=== PATIENT | female | born 1945 | race Caucasian/White ===

== ENCOUNTER 2018-10-28 12:18 | Inpatient (IN) ==
[2018-10-28] MEDS ORDERED: Acetaminophen IV 1,000 MG/100 ML INFUS..BTL IVPB ONE (12:35)
[2018-10-28] MEDS ORDERED: Gabapentin 300 MG CAPSULE PO ONE (12:35)
[2018-10-28] MEDS ORDERED: traMADol 50 MG TABLET PO ONE (12:36)
[2018-10-28] MEDS ORDERED: Ringers Solution, Lactated 1,000 ML IVC SCH (12:45)
[2018-10-28] MEDS ORDERED: CeFAZolin Syr 2,000MG/20 ML 2,000 MG/20 ML SYRINGE IVPB ONE (12:48)
--- NOTE | 2018-10-28 13:32 | Anesthesia Evaluation PreOp ---
Date of Encounter: 10/28/18 Time of Encounter: 13:30 - Past History Planned Operation: Right Total Hip Replacement Robotic Assisted Cardiac History: HTN Pulmonary History: Denies Any Significant HX IT PROGRAM MANAGER History: Denies Any Significant HX Other Medical History: Thyroid : No Alcohol Use: none Drug use: none Medications and Allergies Aspirin [Lo-Dose Aspirin EC] 81 mg PO DAILY 10/28/18 [History] Calcium Carbonate [Calcium] 500 mg PO DAILY 10/28/18 [History] Cholecalciferol (Vitamin D3) [Vitamin D] 1,000 unit PO DAILY 10/28/18 [History] Escitalopram [Lexapro] 20 mg PO DAILY 10/28/18 [History] Levothyroxine Sodium [Levo-T] 100 mcg PO QAM 10/28/18 [History] Lisinopril-HCTZ 20-12.5 [Prinzide 20-12.5] 1 tab PO DAILY 10/28/18 [History] Multivitamin [One Daily] 1 tab PO DAILY 10/28/18 [History] [place]-3/Dha/Epa/Fish Oil [Fish Oil 1,000 mg Softgel] 1 cap PO DAILY 10/28/18 [ History] clonazePAM [Clonazepam] 0.5 mg PO HS 10/28/18 [History] Allergy/AdvReac Type Severity Reaction Status Date / Time Sulfa (Sulfonamide Allergy Unknown Unverified 10/15/18 13:57 Antibiotics) - Meds/Allergy Pre-op Review Medications Reviewed: Yes Allergies Reviewed: Yes Beta Blockers on Current Med List: No Anesthesia Results - Labs Laboratory Tests 10/15/18 10/15/18 10/15/18 14:27 14:27 14:27 Hgb Hct Plt Count 232 PT 11.7 INR 1.0 APTT 34.5 Sodium 137 Potassium 3.9 BUN 13 Creatinine 0.74 10/25/18 11:01 Hgb 14.3 Hct 43.5 Plt Count PT INR APTT Sodium Potassium BUN Creatinine - Imaging EKG: report reviewed (SR) Anesthesia Exam O2 Sat Height 1.6 m Height 1.6 m Weight 88.451 kg Weight 88.451 kg O2 Sat by Pulse Oximetry 95 Vital Signs Temp Pulse Resp BP Pulse Ox 99.0 F 87 18 158/80 95 10/28/18 12:38 10/28/18 12:38 10/28/18 12:38 10/28/18 12:38 10/28/18 12:38 Height: 5'3 Weight: 195 lbs NPO (# of Hours): MN Pain Scale: 0 - HEENT Pupil (Motor): Pupils equal, EOMI Mallampati: III Denture Type: Upper: Complete Oral Opening: Less than or equal to 3 - IT PROGRAM MANAGER LOC: Oriented IT PROGRAM MANAGER Motor: Normal RUE, Normal LUE, Normal RLE, Normal LLE, Normal Face IT PROGRAM MANAGER Sensory: Normal: RUE, LUE, RLE, LLE, Face - Cardiac Rhythm: Regular Murmur: None JVD: No Carotid Bruit: No - Pulmonary Breath Sounds: bilateral Clear Respiratory Effort: Symmetrical Anesthesia Assess/Plan ASA Score: 2 Level of consciousness: Cooperative, Oriented Anesthetic Plan: Spinal Autologous Blood: No Monitoring Plan: Standard Monitors Recovery Plan: PACU (Discussed SAB/MAC, possible GA, risks and benefits, agrees to proceed)
--- NOTE | 2018-10-28 13:45 | History & Physical Report ---
Date of Encounter: 10/28/18 Time of Encounter: 13:44 24 Hour HP Update - Instructions Instructions: If the History and Physical is less than 30 days old and was completed prior to A.M. admission and or procedure and has NOT been updated on calendar day of procedure please complete this update prior to performing procedure. - Update Patient reports changes in Medical Condition: No Changes in examination, assessment, or condition: No Changes in Medication: No Preop tests/diagnostics Reviewed: Yes Surgery Remains Indicated: Yes Consent for Planned Operative Procedure(s) Verified: Yes - Pre-Operative Checklist Preoperative Checklist Indicated: No Prophylactic Antibiotic Ordered: Yes Is VTE Prophylaxis Indicated?: Yes
[2018-10-28] MEDS ORDERED: *HR* FentaNYL (PF) 100 MCG/2 ML VIAL ONE (13:54)
[2018-10-28] MEDS ORDERED: *HR* Midazolam HCl 2 MG/2 ML VIAL ONE (13:54)
[2018-10-28] MEDS ORDERED: Ethanol\\Acetic Acid\\Na Ace\\Ben 1,000 ML IRRIG.SOLN IR ONE (13:56)
--- NOTE | 2018-10-28 14:27 | Anesthesia Procedures ---
Date of Encounter: 10/28/18 Time of Encounter: 14:25 Procedures: Anesthesia - Epidural/Spinal Patient ID/Chart reviewed: Yes Patient examined: Yes Consent Obtained: Yes Supplemental Oxygen: Nasal Cannula Supplemental Oxygen Rate (L/min): 3 Sedation: Versed (mg): 2 Sedation: Fentanyl (mcg): 50 Site Prep: Aseptic Technique, Sterile prep and drape, 0.5% Chlorhexidine/Alcohol Patient position: upright Local Anesthetic: Lidocaine 1% Amount of Local Anesthetic used: 5 Interspace Used: L3-L4 Loss of Resistance (JON): No Blood: No CSF: Yes Paresthesia: No Spinal Needle Gauge: 25 (3.5" pencan needle) Spinal Dose: 2.5mL of 0.5% isobaric bupivicaine Procedure: successful on 2nd attempt; patient tolerated procedure well; VSS Vitals + FHT's: see "holding vital signs" notes
[2018-10-28] MEDS ORDERED: Propofol 500 MG/50 ML INFUS..BTL ONE (14:45)
[2018-10-28] MEDS ORDERED: Tranexamic Acid 1,000 MG/10 ML VIAL ONE (14:45)
[2018-10-28] MEDS ORDERED: Ondansetron 4 MG/2 ML VIAL ONE (15:07)
[2018-10-28] MEDS ORDERED: Dexamethasone 4 MG/ML VIAL ONE (15:07)
[2018-10-28] MEDS ORDERED: *HR* PHENYLEPHRINE 1,000 MCG/10 ML SYRINGE IVP ONE (15:27)
--- NOTE | 2018-10-28 15:59 | Orthopedic Operative Note ---
Date of procedure: 10/28/18 Pre-op diagnosis: Right hip arthritis Post-op diagnosis: same Procedure: Procedure: Right Total Hip Replacment robotic-assisted Estimated blood loss: 300 cc Hardware: Metal and polyethylene replacement. [place] DM Cup: 52 cup Femoral size 4 anteverted Anato stem Head: +8 head with Marry Procedural Notes: Grade 4 arthritic changes femoral head acetabular socket, procedure performed with robotic assistance. Operative leg 6 millimeters longer than nonoperative as measured by preoperative CT scan Operative procedure: The patient was brought to the operating room and placed on the operating room table. After anesthesia was administered the patient was placed in the lateral decubitus position with the operative leg up. All pressure points were padded appropriately and the head was stabilized in the neutral position. The operative extremity was prepped and draped in the sterile surgical fashion patient received IV antibiotic prior to skin incision. 3 Steinmann pins were placed in the iliac crest 3 cm proximal to the anterior superior iliac spine this was for the robotic-assisted sensor. This was done through a small 2 cm incision. A standard posterior approach is made to the operative hip, the incision was made through the skin and subcutaneous tissue hemostasis was obtained with Bovie cautery. Using careful sharp dissection the fascia was identified and incised exposing the external rotators. The greater trochanter was marked, and length was measured at this time utilizing robotic assistance. The external rotators were released off the greater trochanter and tagged with #2 FiberWire suture. The capsule was T'd open and the hip was brought into internal rotation. Patient noted to have grade 4 arthritic changes femoral head. The femoral neck cut was made at the appropriate level roughly 15 mm proximal to the lesser trochanter aced on preoperative templating. An anterior capsulotomy was performed for the anterior retractor. Soft tissues removed from the acetabulum. Patient noted to have grade 4 arthritic changes acetabulum. The acetabulum reference point was confirmed. The acetabulum was then mapped with robotic assistance. Based on the preoperative plan the acetabulum was reamed in one step with a 52 reamer. The 52 acetabulum was impacted with robotic assistance and 39 degrees of abduction and 13 degrees of anteversion. The hip was brought back in to internal rotation and prepared with the telephone coin box collector followed by the canal finder followed by the reaming process to a size 11 broaching process in 20 degrees anteversion. It was broached up to the a ppropriate size 4 Trial reduction revealed leg lengths close to normal. The femoral implant was impacted in place in 20 degrees of anteversion. Trial reduction found the hip to be stable with 8 head and Marry. The trials were removed and the real implants were impacted in place. The hip was reduced, patient had robotic confirmed leg length of 8 mm longer than the contralateral side. The hip had excellent stability with forward flexion to 90 degrees adduction of 30 degrees and internal rotation of 60 degrees. The hip had no shuck. The hip sat with an antibacterial solution. It was irrigated out with 2 L of pulse irrigation. The Steinmann pins were removed. The hip was closed by the PA. The deep tissue was irrigated and closed deep with #1 PDS suture superficially with 0 PDS suture and skin was closed with Dermabond and zip tie. The patient was placed in a sterile dressing and abduction pillow. The patient was transferred to the recovery room in stable condition. Anesthesia: spinal Surgeon: Suleiman Howe Was there an assistant director of public works present: No Estimated blood loss (cc): 300 Condition: stable Disposition: PACU
--- NOTE | 2018-10-28 17:11 | Anesthesia Evaluation Post Op ---
Date of Encounter: 10/28/18 Time of Encounter: 17:10 - Vital Signs Vital Signs: Vital Signs/O2 Sat, Most Current Temp Pulse Resp BP Pulse Ox 98.5 F 60 16 133/72 96 10/28/18 17:06 10/28/18 17:06 10/28/18 17:06 10/28/18 17:06 10/28/18 17:06 - Lungs Lungs: Clear Ascult./Percussion - Airway Airway: Non-obstructed - Cardiovascular Regular Rate - Mental Status Mental Status: Alert & Oriented, Answers Appropriately - Pain Pain Scale: 0 Pain Scale used: Numeric (1 - 10) - Nausea Vomiting Nausea Vomiting: Not Present - Hydration Hydration: Tolerates oral liquids - Discharge PostOp Status: Transfer Patient to floor
[2018-10-28 17:12] LABS: Hematocrit 40.8 % (35.3-44.9); Hemoglobin 13.6 g/dL (11.5-15.4)
[2018-10-28] MEDS ORDERED: Naloxone 0.4 MG/ML INJ IVP PRN (18:13)
[2018-10-28] MEDS ORDERED: Ondansetron 4 MG/2 ML VIAL IVP PRN (18:13)
[2018-10-28] MEDS ORDERED: traMADol 50 MG TABLET PO PRN (18:13)
[2018-10-28] MEDS ORDERED: *HR* Promethazine 25 MG/ML VIAL IVP PRN (18:13)
[2018-10-28] MEDS ORDERED: MOM Conc 10 ML UD.LIQ PO PRN (18:13)
[2018-10-28] MEDS ORDERED: Sennosides 8.6 MG TABLET PO PRN (18:13)
[2018-10-28] MEDS ORDERED: *HR* OxyCODONE Immed Rel 5 MG TABLET PO PRN (18:13)
[2018-10-28] MEDS ORDERED: Temazepam 15 MG CAPSULE PO PRN (18:13)
[2018-10-28] MEDS: Ascorbic Acid 500 MG TABLET PO SCH (18:40)
[2018-10-28] MEDS: Ringers Solution, Lactated 1,000 ML IVC SCH ×2 (18:41→23:00)
[2018-10-28] MEDS ORDERED: *HR* Enoxaparin 30 MG/0.3 ML SYRINGE SQ SCH (20:00)
[2018-10-28] MEDS: Gabapentin 300 MG CAPSULE PO SCH (20:33)
[2018-10-28] MEDS: *HR* Enoxaparin 30 MG/0.3 ML SYRINGE SQ SCH (20:33)
[2018-10-28] MEDS: HYDROcodone BIT/Homatropine 5 MG TABLET PO PRN (20:34)
[2018-10-28] MEDS ORDERED: clonazePAM 0.5 MG TABLET PO SCH (21:00)
[2018-10-29] MEDS: HYDROcodone BIT/Homatropine 5 MG TABLET PO PRN ×2 (03:53→10:15)
[2018-10-29] MEDS: *HR* Enoxaparin 30 MG/0.3 ML SYRINGE SQ SCH (05:53)
--- NOTE | 2018-10-29 06:30 | Orthopedics Progress Note ---
Date of Encounter: 10/29/18 Time of Encounter: 06:29 Subjective Interval history: Patient was seen this morning doing well without complaints. Afebrile vital signs stable. Operative extremity: Neurovascularly intact Dressing clean dry and intact Calves nontender Assessment and plan: Continue with postoperative care Postop hematocrit 40 plan for discharge today or tomorrow based on progression with physical therapy Objective Vital signs: Vital Signs Temp Pulse Resp BP Pulse Ox 10/29/18 03:56 97.6 F 59 21 120/74 96 10/28/18 23:01 98.2 F 60 20 121/79 96 10/28/18 20:35 98.2 F 65 115/76 96 10/28/18 19:35 98.3 F 69 160/83 98 10/28/18 18:35 97.7 F 68 15 114/65 94 10/28/18 18:05 97.6 F 65 16 144/70 97 10/28/18 17:34 97.6 F 60 16 153/76 94 10/28/18 17:06 98.5 F 60 16 133/72 96 10/28/18 16:56 98.5 F 60 18 116/66 95 10/28/18 16:46 56 16 112/73 93 10/28/18 16:36 59 16 111/63 94 10/28/18 16:26 98.1 F 62 18 107/56 93 10/28/18 14:50 73 16 128/59 98 10/28/18 14:44 77 16 129/63 98 10/28/18 14:38 80 16 127/70 98 10/28/18 14:33 78 16 126/62 97 10/28/18 14:23 81 16 142/82 97 10/28/18 14:10 81 16 159/73 98 10/28/18 12:38 99.0 F 87 18 158/80 95 Intake and Output 10/28/18 10/28/18 10/29/18 15:59 23:59 07:59 Intake Total 20 / 1220 1200 / 1220 700 / 700 Output Total 300 / 300 Balance 20 / 920 900 / 920 700 / 700 Intake: IV Fluids 20 / 1020 1000 / 1020 Lactated Ringers 1,000 ML @ 75 1000 / 1000 mls/hr IVC .[id number] [facility] Rx#: [id number] Ancef Syringe 2,000 MG/20 ML 2, 20 / 20 000 mg In 20 ml @ 200 mls/hr IVPB PREOP ONE Rx#:[id number] Oral 200 / 200 700 / 700 Output: Estimated Blood Loss 300 / 300 Other: # Voids 1 1 Weight 88.451 kg 99.2 kg Patient Weight 10/29/18 23:59 Weight 99.2 kg - Labs CBC & BMP: 10/28/18 16:44 Consult Discharge Plan - Plan Referrals: Catie Singh MD [Primary Care Provider] -
[2018-10-29] MEDS: Ascorbic Acid 500 MG TABLET PO SCH ×2 (07:59→16:06)
[2018-10-29] MEDS: Gabapentin 300 MG CAPSULE PO SCH ×2 (08:01→15:52)
[2018-10-29 08:19] LABS: Basophils % 0.2 %; Hematocrit 39.5 % (35.3-44.9); Hemoglobin 12.9 g/dL (11.5-15.4); Immature Granulocytes % 0.5 % (0-4); Lymphocytes # 1.3 K/mcL (0.6-4.6); Lymphocytes % 9.8 %; Mean Corpuscular HGB Conc 32.7 g/dL (31.6-35.5); Mean Corpuscular Hemoglobin 32.3 pg (28.0-33.3); Monocytes # 0.6 K/mcL (0.0-1.3); Neutrophils # 10.7 K/mcL (1.6-8.9); Platelet Count 203 K/mcL (140-400); Red Blood Count 3.99 M/mcL (3.82-4.97); Red Cell Distribution Width 12.6 % (11.5-14.5); Segmented Neutrophils % 84.5 %; White Blood Count 12.7 K/mcL (4.3-11.1)
[2018-10-29 08:22] LABS: BUN/Creatinine Ratio 21 (6-26); Blood Urea Nitrogen 17 mg/dL (8-23); Calcium 8.7 mg/dL (8.6-10.3); Carbon Dioxide 26 mEq/L (23-29); Chloride 102 mEq/L (98-107); Glucose 136 mg/dL (70-105); Osmolality,Calculated 282 (280-300); Potassium 4.3 mEq/L (3.5-5.1); Sodium 134 mEq/L (136-145); eGFR For African Americans > 60 (> 60); eGFR For Non-African Americans > 60 (> 60)
[2018-10-29] MEDS ORDERED: Aspirin Enteric Coated 81 MG Tablet PO SCH (09:00)
[2018-10-29] MEDS ORDERED: Cholecalciferol (D-3) 1,000 UNIT (25MCG) TABLET PO SCH (09:00)
[2018-10-29] MEDS ORDERED: Multivit/Ca/Min/Fe/FA 1 TAB TABLET PO SCH (09:00)
[2018-10-29] MEDS ORDERED: NON-FORMULARY MEDICATION 1 EACH EACH (Omega-3/Dha/Epa/Fish Oil [Fish Oil 1,000 Mg Softgel] PO SCH (09:00)
[2018-10-29] MEDS ORDERED: Lisinopril-HCTZ 20-12.5mg TABLET PO SCH (09:00)
[2018-10-29] MEDS ORDERED: NON-FORMULARY MEDICATION 1 EACH EACH (Multivitamin [One Daily] 1 TAB) PO SCH (09:00)
--- NOTE | 2018-10-29 10:30 | Discharge Summary ---
Orders not resulted at time of discharge: Pending orders 10/28/18 15:50 Surgical Pathology [PTH] Routine Date of Encounter: 10/29/18 Time of Encounter: 09:55 - Discharge Diagnosis (1) Arthritis of right hip Priority: Primary Status: Chronic (2) Status post total hip replacement, right Priority: Primary Status: Acute (3) Thyroid disorder Priority: Secondary Status: Chronic (4) HTN (hypertension) Priority: Secondary Status: Chronic Qualifiers: Hypertension type: unspecified Qualified Code(s): I10 - Essential (primary) hypertension (5) History of vertigo Priority: Secondary Status: Chronic (6) Depression Priority: Secondary Status: Chronic Qualifiers: Depression Type: unspecified Qualified Code(s): F32.9 - Major depressive disorder, single episode, unspecified (7) Obesity Priority: Secondary Status: Chronic Qualifiers: Obesity type: unspecified obesity type Obesity classification: unspecified obesity classification Serious obesity comorbidity presence: unspecified whether serious comorbidity present Qualified Code(s): E66.9 - Obesity, unspecified (8) Lumbar radiculopathy Priority: Secondary Status: Chronic - Hospital Course Hospital course: Ms. Gan is a 73 year old female POD#1 s/p Right Total Hip Replacement robotic-assisted [arthritis] 10/28/18 Patient seen at bedside. A&Ox3 Dressing and incision c/d/i Patient expressing right calf tenderness to palpation - doppler ordered - found to be negative. No Left calf tenderness, erythema, or warmth. Neurovascularly intact b/l LE. Labwork, vitals, and medications reviewed. Pain control: Adequate Participating in therapy. All questions and concerns addressed. Educated on use of incentive spirometer, ambulation, and hydration. Patient educated on post-operative restrictions and care. Addressed: see above. The patient's postoperative course was uneventful. Progressed from intravenous analgesic needs to oral analgesic needs only. Remained neurovascularly intact and mobilized satisfactorily. All radiographic studies were satisfactory. Patient course and disposition discussed with Dr. Howe. Patient is discharged to home with home health with plan for rehabilitation and outpatient orthopedic follow up has been arranged. - Time Spent with Patient Total time spent providing and/or coordinating discharge services: - Discharge Medications Prescriptions: New Docusate Sodium [Colace] 100 mg PO BID 5 Days #10 capsule OxyCODONE Immed Rel [Roxicodone 5 MG] 5 mg PO Q6HR PRN 5 Days #20 tablet PRN Reason: Severe Pain Aspirin Enteric Coated [Aspirin EC] 325 mg PO BID 10 Days #20 tablet. Acetaminophen [Non-Aspirin Extra Strength] 500 mg PO Q6H PRN 7 Days #28 tablet PRN Reason: Mild To Moderate Pain Continued Escitalopram [Lexapro] 20 mg PO DAILY [place]-3/Dha/Epa/Fish Oil [Fish Oil 1,000 mg Softgel] 1 cap PO DAILY Multivitamin [One Daily] 1 tab PO DAILY Lisinopril-HCTZ 20-12.5 [Prinzide 20-12.5] 1 tab PO DAILY Levothyroxine Sodium [Levo-T] 100 mcg PO QAM clonazePAM [Clonazepam] 0.5 mg PO HS Cholecalciferol (Vitamin D3) [Vitamin D3] 1,000 unit PO DAILY Calcium Carbonate [Calcium] 500 mg PO DAILY Discontinued Aspirin [Lo-Dose Aspirin EC] 81 mg PO DAILY Home Medications: Calcium Carbonate [Calcium] 500 mg PO DAILY 10/28/18 [History] Cholecalciferol (Vitamin D3) [Vitamin D3] 1,000 unit PO DAILY 10/28/18 [History] Escitalopram [Lexapro] 20 mg PO DAILY 10/28/18 [History] Levothyroxine Sodium [Levo-T] 100 mcg PO QAM 10/28/18 [History] Lisinopril-HCTZ 20-12.5 [Prinzide 20-12.5] 1 tab PO DAILY 10/28/18 [History] Multivitamin [One Daily] 1 tab PO DAILY 10/28/18 [History] [place]-3/Dha/Epa/Fish Oil [Fish Oil 1,000 mg Softgel] 1 cap PO DAILY 10/28/18 [History] clonazePAM [Clonazepam] 0.5 mg PO HS 10/28/18 [History] Acetaminophen [Non-Aspirin Extra Strength] 500 mg PO Q6H PRN 7 Days #28 tablet 10/29/18 [Rx] Aspirin Enteric Coated [Aspirin EC] 325 mg PO BID 10 Days #20 tablet. 10/29/18 [Rx] Docusate Sodium [Colace] 100 mg PO BID 5 Days #10 capsule 10/29/18 [Rx] OxyCODONE Immed Rel [Roxicodone 5 MG] 5 mg PO Q6HR PRN 5 Days #20 tablet 10/29/18 [Rx] Allergies/Adverse Reactions: Allergy/AdvReac Type Severity Reaction Status Date / Time Sulfa (Sulfonamide Allergy Unknown Verified 10/28/18 18:31 Antibiotics) Date of admission: 10/28/18 16:27 Primary care physician: Catie Singh Consults: 10/28/18 17:43 Consult to Internal Control Manager [CONS] Routine Reason for SW Consult: DISCHARGE PLANNING 10/28/18 18:13 Consult to Nurse Navigator [CONS] Routine Comment: ortho navigator Consult to Nutrition [CONS] Routine Comment: Consulting Provider: NUTRITION Reason for Dietary Consult: Other Other:: Proper nutrition to facilitate wound healing Consult to Occupational Therapy [CONS] Routine Comment: Evaluate, develop and implement POC Reason for Consult: total hip replacement Does patient have active BEDREST order?: No Is patient medically & hemodynamically stable?: Yes Consult to Physical Therapy [CONS] Routine Comment: Evaluate, develop and implement POC Reason for Consult: total hip replacement Does patient have active BEDREST order?: No Is patient medically & hemodynamically stable?: Yes Consult to Internal Control Manager [CONS] Routine Reason for SW Consult: post op joint replacement RT Post Op Consult [CONS] Routine Discharging clinician: Suleiman Howe Anticipated date of discharge: 10/29/18 - VTE Documentation of Mechanical Device: Venous foot pump, device Labs on day of discharge: Labs from last 24 hours 10/29/18 10/29/18 10/28/18 07:22 07:22 16:44 WBC 12.7 H RBC 3.99 Hgb 12.9 13.6 Hct 39.5 40.8 MCV 99.0 MCH 32.3 MCHC 32.7 RDW 12.6 Plt Count 203 MPV 10.0 Immature Gran % 0.5 Seg Neutrophils % 84.5 Lymphocytes % 9.8 Monocytes % 5.0 Eosinophils % 0.0 Basophils % 0.2 Neutrophils # 10.7 H Lymphocytes # 1.3 Monocytes # 0.6 Eosinophils # 0.0 Basophils # 0.0 Sodium 134 L Potassium 4.3 Chloride 102 Carbon Dioxide 26 BUN 17 Creatinine 0.81 Est GFR ( Amer) > 60 Est GFR (Non-Af Amer) > 60 BUN/Creatinine Ratio 21 Glucose 136 H Calculated Osmolality 282 Calcium 8.7 - Impressions ITS Impressions Hip X-Ray 10/28/18 01:00 IMPRESSION: No complications are seen status post right total hip arthroplasty. D/ / Guanakito Romero MD / Guanakito Romero MD Interpreting Provider: Guanakito Romero MD - Patient Status Disposition: Home Health Service Condition: Good Functional capacity at discharge: uses cane/walker Overall status at discharge: patient is progressing back to baseline - Discharge Instructions Follow Up With: Catie Singh MD [Primary Care Provider] - - Diet and Activity Activity: as per physical therapy Diet: advance to your usual diet
--- NOTE | 2018-10-29 12:40 | Physician Discharge Referral ---
Home Health/Hosp Referral Info Transfer to: Home Health Attending Provider: Dr. Suleiman Howe - Diagnosis (1) Arthritis of right hip Priority: Primary Status: Chronic (2) Status post total hip replacement, right Priority: Primary Status: Acute (3) Thyroid disorder Priority: Secondary Status: Chronic (4) HTN (hypertension) Priority: Secondary Status: Chronic (5) History of vertigo Priority: Secondary Status: Chronic (6) Depression Priority: Secondary Status: Chronic (7) Obesity Priority: Secondary Status: Chronic (8) Lumbar radiculopathy Priority: Secondary Status: Chronic - Respiratory Orders Smoking Cessation: Smoking cessation has been advised. For more information, call the [place] Tobacco Quit Line at 5-423-TZVB-NOW. - Dressing/Wound Care Site: right hip - Diet/Nutrition Diet/Nutrition Orders: Regular - Activity Activity Orders: Up ad machelle, Ambulate, Chair, Walker - Services Needed Following services are medically necessary services: Nursing, Home Health Aide, Physical Therapy, Occupational Therapy, Med Social Work Home Care Orders: Total Hip replacement Precautions Apply cold therapy 3-6x/day for 20 minutes at a time. Encourage ambulation throughout the day and incentive spirometer 10x/hour. Elevate affected extremity as tolerated. Brace: Wear hip abduction pillow when laying/sleeping Opsite placed. Keep dressing intact until first follow up appointment. If greater than 50% saturated, notify office, remove dressing and place appropriate dressing back in place. Leave Zipline intact. Opsite dressing is water resistant, not water-proof. OK to shower, but do not get dressing wet. - Transfer Medications Prescriptions: Aspirin Enteric Coated [Aspirin EC] 325 mg PO BID 10 Days #20 tablet. Docusate Sodium [Colace] 100 mg PO BID 5 Days #10 capsule Acetaminophen [Non-Aspirin Extra Strength] 500 mg PO Q6H PRN 7 Days #28 tablet PRN Reason: Mild To Moderate Pain OxyCODONE Immed Rel [Roxicodone 5 MG] 5 mg PO Q6HR PRN 5 Days #20 tablet PRN Reason: Severe Pain Home Medications: Calcium Carbonate [Calcium] 500 mg PO DAILY 10/28/18 [History] Cholecalciferol (Vitamin D3) [Vitamin D3] 1,000 unit PO DAILY 10/28/18 [History] Escitalopram [Lexapro] 20 mg PO DAILY 10/28/18 [History] Levothyroxine Sodium [Levo-T] 100 mcg PO QAM 10/28/18 [History] Lisinopril-HCTZ 20-12.5 [Prinzide 20-12.5] 1 tab PO DAILY 10/28/18 [History] Multivitamin [One Daily] 1 tab PO DAILY 10/28/18 [History] [place]-3/Dha/Epa/Fish Oil [Fish Oil 1,000 mg Softgel] 1 cap PO DAILY 10/28/18 [History] clonazePAM [Clonazepam] 0.5 mg PO HS 10/28/18 [History] Acetaminophen [Non-Aspirin Extra Strength] 500 mg PO Q6H PRN 7 Days #28 tablet 10/29/18 [Rx] Aspirin Enteric Coated [Aspirin EC] 325 mg PO BID 10 Days #20 tablet. 10/29/18 [Rx] Docusate Sodium [Colace] 100 mg PO BID 5 Days #10 capsule 10/29/18 [Rx] OxyCODONE Immed Rel [Roxicodone 5 MG] 5 mg PO Q6HR PRN 5 Days #20 tablet 10/29/18 [Rx] Allergies/Adverse Reactions: Allergy/AdvReac Type Severity Reaction Status Date / Time Sulfa (Sulfonamide Allergy Unknown Verified 10/28/18 18:31 Antibiotics) Certification: Further, I certify that my clinical findings support that this patient is homebound (i.e. absences from home require considerable and taxing effort and are for medical reasons or moravian services or infrequently or short duration when for other reasons) because: Homebound Reason: Post-surgery restriction and or conditions limit ability to leave home Attestation: My signature below is to certify that this patient is under my care and that I, or nurse practitioner, or a physician engineer first assistant working with me, has a [id number] encounter with this patient.
[2018-10-29 14:59] VITALS: BP 114/68
== END 2018-10-29 16:18 | disposition home health service (06) | DRG 470 ==
LOC: SAMDAY 12:18 → 3NENU 16:27
PROVIDERS: ADMIT Orthopaedic Surgery; ATTEND Orthopaedic Surgery

== ENCOUNTER 2018-11-07 17:36 | Inpatient (IN) ==
[2018-11-07] MEDS ORDERED: Ondansetron 4 MG/2 ML VIAL ONE (17:45)
[2018-11-07] MEDS ORDERED: Ondansetron 4 MG/2 ML VIAL IVP ONE (17:47)
[2018-11-07] MEDS ORDERED: Isovue-370 500 ML BOTTLE IVP ONE (17:55)
--- NOTE | 2018-11-07 17:58 | Emergency Department Note ---
Disposition Clinical Impression: DVT (deep venous thrombosis) Qualifiers: DVT location: lower extremity Affected thrombotic vein of extremity: unspecified vein of extremity Chronicity: acute Laterality: right Qualified Code(s): I82.401 - Acute embolism and thrombosis of unspecified deep veins of right lower extremity Disposition: Still a Patient Condition: Good Referrals: Catie Singh MD [Primary Care Provider] - Forms: ED Satisfaction Letter Time of Disposition: 19:23 General Adult HPI - General Chief complaint: ED Nausea/Vomiting/Diarrhea Stated complaint: N/V Time Seen by Provider: 11/07/18 17:41 Source: patient, family Limitations: no limitations Nursing Notes Reviewed: Yes Vital Signs Reviewed: Yes - History of Present Illness HPI Narrative: Patient is 73 yo woman s/p right hip replacement surgery 10 days ago who ken ddenly became unable to bear weight on right leg 2/2 acute pain today 11/07/18 after returning from followup appointment with Dr. Howe. She endorses CP, nausea/vomiting, and denies SOB, fever, chills, AMS, or pain elsewhere. She had one episode of diaphoresis following development of pain. She denies hematemesis, dysuria, hematuria, melena. Right calf is unilaterally swollen. Patient states everything went fine at today's appointment. She has no history of blood clots and is not on anticoagulation. She does take a baby aspirin daily. PMH includes hypothyroidism, HTN, arthritis. Home meds include lisinopril, clonazepam, escitalopram. Social history significant for no smoking, alcohol or other substance use. Pain Scale: 4 - Related Data Home Medications Medication Instructions Recorded Confirmed Calcium Carbonate [Calcium] 500 mg PO DAILY 10/28/18 11/07/18 Cholecalciferol (Vitamin D3) 1,000 unit PO DAILY 10/28/18 11/07/18 [Vitamin D3] Levothyroxine Sodium [Levo-T] 100 mcg PO QAM 10/28/18 11/07/18 Lisinopril-HCTZ 20-12.5 [Prinzide 1 tab PO DAILY 10/28/18 11/07/18 20-12.5] Multivitamin [One Daily] 1 tab PO DAILY 10/28/18 11/07/18 [place]-3/Dha/Epa/Fish Oil [Fish Oil 1 cap PO DAILY 10/28/18 11/07/18 1,000 mg Softgel] clonazePAM [Clonazepam] 0.5 mg PO HS 10/28/18 11/07/18 Aspirin [Lo-Dose Aspirin EC] 81 mg PO DAILY 11/07/18 11/07/18 Escitalopram [Lexapro] 10 mg PO DAILY 11/07/18 11/07/18 Previous Rx's Medication Instructions Recorded OxyCODONE Immed Rel [Roxicodone 5 5 mg PO Q6HR PRN 5 Days #20 tablet 10/29/18 MG] Allergies Allergy/AdvReac Type Severity Reaction Status Date / Time Sulfa (Sulfonamide Allergy Unknown Verified 10/28/18 18:31 Antibiotics) All systems ED: reviewed and negative except as stated. Cardiovascular: Reports: chest pain Gastrointestinal: Reports: nausea, vomiting Genitourinary: Reports: frequency Musculoskeletal: Reports: other (Right hip, quadriceps, calf pain) Past Medical History - Past Medical History Attestation: Yes The following information was validated with the patient. Source: patient, old records reviewed, obtained from family Medical history: Reports: arthritis, hypertension, thyroid disease, other Surgical history: Reports: other Psychiatric history: Reports: no psych history - Social History Smoking Status: Never smoker Smokeless Tobacco Status: No Alcohol use: Reports: none Drug use: Reports: none Physical Exam PE Gen: Ill appearing, uncomfortable, AOx3 HEENT: No lymphadenopathy. Pupils equal and reactive. Cardio: Regular rate and rhythm, no murmur, no cyanosis, good perfusion to all extremities. Resp: Breath sounds equal bilaterally, no wheeze or cough GI: Abdomen soft, nontender, nondistended on palpation in all quadrants. Ecchymoses on abdomen s/p right hip replacement. : No suprapubic distention or tenderness MSK: +unilateral swelling and tenderness to palpation of RLE, no palpable cord, pain on dorsiflexion. No erythema. New dressing placed on surgical site earlier today at followup appointment w/ surgeon. I did not disturb the dressing on exam. Neuro: CNI-XII intact, sensation and strength intact, no AMS Psych: appropriate affect - General Limitations: no limitations Course Course Narrative: Ddx includes DVT, PE, MS. VS stable and WN apart from elevated BP 130s/108. Troponin negative. EKG pending. WBC mildly elevated at 14.4. Venous doppler RLE, CT-A ordered to evaluate for DVT and PE respectively. Updated patient and family regarding plan, pending shift change. Imaging pending at signout to Dr. Orellana. - Reevaluation(s) Reevaluation #1: VS stable. Patient resting comfortably following 100mcg fentanyl, reglan and benadryl IV. CT for PE pending. US +DVT. Signed out to Dr. Orellana. Time: 19:03 Vital Signs Temperature 98.7 F 11/07/18 17:49 Pulse Rate 77 11/07/18 17:49 Respiratory Rate 24 11/07/18 17:49 Blood Pressure 136/108 11/07/18 17:49 O2 Sat by Pulse Oximetry 100 11/07/18 17:49 Temperature 98.7 F 11/07/18 17:49 Pulse Rate 77 11/07/18 17:49 Respiratory Rate 24 11/07/18 17:49 Blood Pressure 136/108 11/07/18 17:49 O2 Sat by Pulse Oximetry 100 11/07/18 17:49 Oxygen Delivery Oxygen Delivery Room Air Medical Decision Making - MDM Narrative Medical decision making narrative: See course. - Medical Records Medical records reviewed: Yes I reviewed the patient's medical records. - Lab Data Lab results reviewed: Yes I reviewed the patient's lab results. Result diagrams: 11/07/18 17:53 11/07/18 17:53 Lab Results 11/07/18 11/07/18 Range/Units 17:53 17:53 WBC 14.4 H (4.3-11.1) K/mcL RBC 3.86 (3.82-4.97) M/mcL Hgb 12.4 (11.5-15.4) g/dL Hct 36.3 (35.3-44.9) % MCV 94.0 (83.0-100.0) fL MCH 32.1 (28.0-33.3) pg MCHC 34.2 (31.6-35.5) g/dL RDW 13.7 (11.5-14.5) % Plt Count 312 (140-400) K/mcL MPV 8.9 L (9.4-12.4) fL Immature Gran % 1.1 (0-4) % Seg Neutrophils % 89.6 % Lymphocytes % 5.6 % Monocytes % 3.5 % Eosinophils % 0.0 % Basophils % 0.2 % Neutrophils # 12.9 H (1.6-8.9) K/mcL Lymphocytes # 0.8 (0.6-4.6) K/mcL Monocytes # 0.5 (0.0-1.3) K/mcL Eosinophils # 0.0 (0.0-0.6) K/mcL Basophils # 0.0 (0.0-0.2) K/mcL Sodium 133 L (136-145) mEq/L Potassium 3.5 (3.5-5.1) mEq/L Chloride 98 (98-107) mEq/L Carbon Dioxide 23 (23-29) mEq/L BUN 10 (8-23) mg/dL Creatinine 0.71 (0.60-1.20) mg/dL Est GFR ( Amer) > 60 (> 60) Est GFR (Non-Af Amer) > 60 (> 60) BUN/Creatinine Ratio 14 (6-26) Glucose 145 H (70-105) mg/dL Calculated Osmolality 278 L (280-300) Calcium 9.7 (8.6-10.3) mg/dL Total Bilirubin 1.2 H (0.3-1.0) mg/dL AST 21 (13-39) Units/L ALT 13 (7-52) Units/L Alkaline Phosphatase 62 (34-104) Units/L Troponin I < 0.03 (< 0.04) ng/mL Serum Total Protein 7.7 (6.4-8.9) g/dL Albumin 4.3 (3.5-5.7) g/dL Globulin 3.4 (2.4-3.5) g/dL Albumin/Globulin Ratio 1.3 (1.1-2.2) - Radiology Data Radiology results reviewed: Yes I reviewed the patient's radiology results. Chest X-Ray 11/07/18 17:59 IMPRESSION: No acute abnormality detected. D/ / Guanakito Romero MD / Guanakito Romero MD Interpreting Provider: Guanakito Romero MD Attestation Statement - Attestation Attestation: I, Dat Castañeda, examined this patient and my medical decision-making was reviewed with the [employer]IPMENT OPERATOR/PA/Advanced Practice Nurse/Resident Physician. I agree with the documented findings, disposition and treatment plan as described except to the extent set forth below. 73-year-old female presents emergency Department with concerns of nausea, vomiting, right lower show any swelling. Patient states she had a recent right hip surgery with Dr. Howe, she noticed that today she is having swelling of the right lower extremity. She was taken out to Dr. Howe's office for further evaluation and reevaluation of the surgical site. Surgical site was cleaned dry and intact per the family members in the room. Patient started to have significant nausea, vomiting, anxiety after her office visit with Dr. Howe. Her pain was not well controlled. She was given pain medication and nausea medication emergency department with significant improvement of her symptoms. DVT was present in the right lower extremity. CTA pending at this time. Patient care transferred to Dr. Orellana pending reevaluation and disposition
[2018-11-07 18:04] LABS: Basophils % 0.2 %; Hematocrit 36.3 % (35.3-44.9); Hemoglobin 12.4 g/dL (11.5-15.4); Immature Granulocytes % 1.1 % (0-4); Lymphocytes # 0.8 K/mcL (0.6-4.6); Lymphocytes % 5.6 %; Mean Corpuscular HGB Conc 34.2 g/dL (31.6-35.5); Mean Corpuscular Hemoglobin 32.1 pg (28.0-33.3); Mean Platelet Volume 8.9 fL (9.4-12.4); Monocytes # 0.5 K/mcL (0.0-1.3); Monocytes % 3.5 %; Neutrophils # 12.9 K/mcL (1.6-8.9); Platelet Count 312 K/mcL (140-400); Red Blood Count 3.86 M/mcL (3.82-4.97); Red Cell Distribution Width 13.7 % (11.5-14.5); Segmented Neutrophils % 89.6 %; White Blood Count 14.4 K/mcL (4.3-11.1)
[2018-11-07] MEDS ORDERED: *HR* FentaNYL (PF) 100 MCG/2 ML VIAL IVP ONE ×2 (18:04→18:27)
[2018-11-07 18:26] LABS: Alanine Aminotransferase 13 Units/L (7-52); Albumin 4.3 g/dL (3.5-5.7); Albumin/Globulin Ratio 1.3 (1.1-2.2); Alkaline Phosphatase 62 Units/L (34-104); Aspartate Amino Transferase 21 Units/L (13-39); BUN/Creatinine Ratio 14 (6-26); Bilirubin,Total 1.2 mg/dL (0.3-1.0); Blood Urea Nitrogen 10 mg/dL (8-23); Calcium 9.7 mg/dL (8.6-10.3); Carbon Dioxide 23 mEq/L (23-29); Chloride 98 mEq/L (98-107); Globulin 3.4 g/dL (2.4-3.5); Glucose 145 mg/dL (70-105); Osmolality,Calculated 278 (280-300); Potassium 3.5 mEq/L (3.5-5.1); Sodium 133 mEq/L (136-145); Total Protein 7.7 g/dL (6.4-8.9); Troponin I < 0.03 ng/mL (< 0.04); eGFR For African Americans > 60 (> 60); eGFR For Non-African Americans > 60 (> 60)
[2018-11-07] MEDS ORDERED: Metoclopramide 10 MG/2 ML VIAL IVP ONE (18:28)
[2018-11-07] MEDS ORDERED: 0.9 % Sodium Chloride 1,000 ML IVC ONE (19:11)
--- NOTE | 2018-11-07 20:16 | Emergency Department Note ---
Disposition Clinical Impression: DVT (deep venous thrombosis) Qualifiers: DVT location: lower extremity Affected thrombotic vein of extremity: unspecified vein of extremity Chronicity: acute Laterality: right Qualified Code(s): I82.401 - Acute embolism and thrombosis of unspecified deep veins of right lower extremity Pulmonary embolism Qualifiers: Pulmonary embolism type: unspecified Chronicity: acute Acute cor pulmonale presence: without acute cor pulmonale Qualified Code(s): I26.99 - Other pulmonary embolism without acute cor pulmonale Disposition: Admitted As Inpatient Condition: Good Time of Disposition: 20:16 General Adult HPI - General Chief complaint: ED Nausea/Vomiting/Diarrhea Stated complaint: N/V Time Seen by Provider: 11/07/18 17:41 Source: patient, family Limitations: no limitations - History of Present Illness Pain Scale: 3 - Related Data Home Medications Medication Instructions Recorded Confirmed Calcium Carbonate [Calcium] 500 mg PO DAILY 10/28/18 11/07/18 Cholecalciferol (Vitamin D3) 1,000 unit PO DAILY 10/28/18 11/07/18 [Vitamin D3] Levothyroxine Sodium [Levo-T] 100 mcg PO QAM 10/28/18 11/07/18 Lisinopril-HCTZ 20-12.5 [Prinzide 1 tab PO DAILY 10/28/18 11/07/18 20-12.5] Multivitamin [One Daily] 1 tab PO DAILY 10/28/18 11/07/18 [place]-3/Dha/Epa/Fish Oil [Fish Oil 1 cap PO DAILY 10/28/18 11/07/18 1,000 mg Softgel] clonazePAM [Clonazepam] 0.5 mg PO HS 10/28/18 11/07/18 Aspirin [Lo-Dose Aspirin EC] 81 mg PO DAILY 11/07/18 11/07/18 Escitalopram [Lexapro] 10 mg PO DAILY 11/07/18 11/07/18 Previous Rx's Medication Instructions Recorded OxyCODONE Immed Rel [Roxicodone 5 5 mg PO Q6HR PRN 5 Days #20 tablet 10/29/18 MG] Allergies Allergy/AdvReac Type Severity Reaction Status Date / Time Sulfa (Sulfonamide Allergy Unknown Verified 10/28/18 18:31 Antibiotics) Cardiovascular: Reports: chest pain Gastrointestinal: Reports: nausea, vomiting Genitourinary: Reports: frequency Musculoskeletal: Reports: other (Right hip, quadriceps, calf pain) Past Medical History - Past Medical History Medical history: Reports: arthritis, hypertension, thyroid disease, other Surgical history: Reports: other Psychiatric history: Reports: no psych history - Social History Smoking Status: Never smoker Smokeless Tobacco Status: No Alcohol use: Reports: none Drug use: Reports: none Physical Exam - General Limitations: no limitations Course Course Narrative: Patient was signed out pending results of the CT scan. The patient had a positive DVT ultrasound of the lower extremities CT scan showed evidence of a ken bsegmental pulmonary embolism. Due to the patient's recent surgery the patient will be anticoagulated with IV heparin and the case will be discussed with the hospitalist and the patient will be admitted to the hospitalist service Vital Signs Temperature 98.7 F 11/07/18 17:49 Pulse Rate 77 11/07/18 17:49 Respiratory Rate 24 11/07/18 17:49 Blood Pressure 136/108 11/07/18 17:49 O2 Sat by Pulse Oximetry 100 11/07/18 17:49 Temperature 98.7 F 11/07/18 17:49 Pulse Rate 73 11/07/18 21:45 Respiratory Rate 15 11/07/18 21:45 Blood Pressure 165/81 11/07/18 21:45 O2 Sat by Pulse Oximetry 97 11/07/18 21:45 Oxygen Delivery Oxygen Delivery Room Air Medical Decision Making - Lab Data Result diagrams: 11/07/18 17:53 11/07/18 17:53 Lab Results 11/07/18 11/07/18 Range/Units 17:53 17:53 WBC 14.4 H (4.3-11.1) K/mcL RBC 3.86 (3.82-4.97) M/mcL Hgb 12.4 (11.5-15.4) g/dL Hct 36.3 (35.3-44.9) % MCV 94.0 (83.0-100.0) fL MCH 32.1 (28.0-33.3) pg MCHC 34.2 (31.6-35.5) g/dL RDW 13.7 (11.5-14.5) % Plt Count 312 (140-400) K/mcL MPV 8.9 L (9.4-12.4) fL Immature Gran % 1.1 (0-4) % Seg Neutrophils % 89.6 % Lymphocytes % 5.6 % Monocytes % 3.5 % Eosinophils % 0.0 % Basophils % 0.2 % Neutrophils # 12.9 H (1.6-8.9) K/mcL Lymphocytes # 0.8 (0.6-4.6) K/mcL Monocytes # 0.5 (0.0-1.3) K/mcL Eosinophils # 0.0 (0.0-0.6) K/mcL Basophils # 0.0 (0.0-0.2) K/mcL Sodium 133 L (136-145) mEq/L Potassium 3.5 (3.5-5.1) mEq/L Chloride 98 (98-107) mEq/L Carbon Dioxide 23 (23-29) mEq/L BUN 10 (8-23) mg/dL Creatinine 0.71 (0.60-1.20) mg/dL Est GFR ( Amer) > 60 (> 60) Est GFR (Non-Af Amer) > 60 (> 60) BUN/Creatinine Ratio 14 (6-26) Glucose 145 H (70-105) mg/dL Calculated Osmolality 278 L (280-300) Calcium 9.7 (8.6-10.3) mg/dL Total Bilirubin 1.2 H (0.3-1.0) mg/dL AST 21 (13-39) Units/L ALT 13 (7-52) Units/L Alkaline Phosphatase 62 (34-104) Units/L Troponin I < 0.03 (< 0.04) ng/mL Serum Total Protein 7.7 (6.4-8.9) g/dL Albumin 4.3 (3.5-5.7) g/dL Globulin 3.4 (2.4-3.5) g/dL Albumin/Globulin Ratio 1.3 (1.1-2.2)
[2018-11-07] MEDS ORDERED: *HR* Heparin 5,000 UNIT/ML VIAL IVP PRN ×2 (20:20)
[2018-11-07] MEDS ORDERED: *HR* Heparin 5,000 UNIT/ML VIAL IVP ONE (20:20)
[2018-11-07] MEDS ORDERED: *HR* Promethazine 25 MG/ML VIAL IVP ONE (21:13)
[2018-11-07] MEDS ORDERED: Acetaminophen 325 MG TABLET PO PRN (21:14)
[2018-11-07] MEDS ORDERED: Ringers Solution, Lactated 1,000 ML IVC SCH (21:15)
[2018-11-07 21:25] LABS: INR 1.1; Prothrombin Time 12.4 Seconds (9.4-12.1)
[2018-11-07 21:27] LABS: Heparin anti-factor XA UFH 0.05 IU/mL (0.30-0.70)
[2018-11-07] MEDS: Heparin 25,000 UNIT/250 ML D5W 25,000 UNIT/250 ML IV.SOLN IVC SCH (21:35)
--- NOTE | 2018-11-07 21:48 | Internal Med History&Physical ---
Date of Encounter: 11/07/18 Time of Encounter: 21:46 Internal Medicine - H&P: HPI Chief complaint: right leg pain Admitted From: Home Plans for Post Hospital Care: Home History of present illness: Lupe Gan is a 73 year old woman who underwent a right total hip replacement on 10/28/18 without any major complications noted, discharged on high dose aspirin and has been doing relatively well at home undergoing physical therapy. She says she went to her orthopedic clinic visit this morning which is the farthest distance she has been since the surgery but when she got home developed pain in her lower right leg and noticed swelling that was more than usual. She also had a transient episode of sharp, shooting chest pains, nausea and vomiting as well. She was brought to the ER where she is seen to be h emodynamically stable but remained nauseated and with generalized malaise. She had a duplex ultrasound done of her right leg which detected a DVT in the peroneal vein. Chest CT was done and showed acute bilateral pulmonary emboli. Lab work was grossly unremarkable. She is admitted for further management. She denies pleuritic chest pain, cough, fever and chills. Vitals: Reviewed General: Well-developed white woman lying in bed with notable discomfort. Skin: Warm and supple. HEENT: Moist mucous membranes. No conjunctivae pallor. Neck: No lymphadenopathy. No JVD. No carotid bruits. No palpable thyroid. Chest: Normal thoracic expansion. Normal breath sounds. Clear to auscultation. Heart: Normal S1 & S2; rhythmic. No rubs or murmurs. Abdomen: Non-distended, soft and non-tender to palpation. No peritoneal reaction. Extremities: Right lower leg circumferentially edematous with some bruising noted on the inferomedial aspect of her thigh. Non-tender to palpation. Neurological: Awake, alert and oriented to person, place and time. No focal deficits. Psych: Affect appropriate. Assessment/Plan 1. Venous thromboembolism: The patient seemingly has a provoked post-surgical DVT complicated with bilateral pulmonary emboli. It appears she was placed on aspirin as a sole agent for VTE prophylaxis. Will start her on heparin gtt. for now and with continued clinical stability established she can be transitioned to an oral agent with hematology clinic follow up. 2. Mood disorder: On escitalopram and clonazepam. 3. HTN: On Lisinopril-HCTZ. 4. Right hip arthroplasty: Due to arthritis. Analgesics ordered as needed. Physical therapy as scheduled. Past Med Surg Social Fam HX - Past Medical History Medical history: arthritis, hypertension, thyroid disease, other Additional medical history: Hypothyrodism. Vertigo. Lumbar Stenosis Left. Lumbar and Facet Arthropathy. Mild Spondylisthesis at Lumbar 4 on 5 Psychiatric history: no psych history - Past Surgical History Surgical History: other Additional surgical history: Tubal Ligation. S/P Bladder Sx. D&C. bilateral hips - Social History Smoking Status: Never smoker Smokeless Tobacco Status: No Alcohol use: none Drug use: none - Family History Son Family Member Ethnicity: Non- Living Status: Still Living Hx Family Cardiac Disorders: Yes (HTN) Hx Family Respiratory Disorders: No Hx Family Cancer: No Hx Family GI Disorders: No Hx Family Endocrine Disorder: No Hx Family Neuromuscular Disorders: No Hx Family Neurologic Disorders: No Hx Family HEENT Disorders: No Hx Family Autoimmune Disorders: No Internal Medicine - H&P: Meds Calcium Carbonate [Calcium] 500 mg PO DAILY 10/28/18 [History] Cholecalciferol (Vitamin D3) [Vitamin D3] 1,000 unit PO DAILY 10/28/18 [History] Levothyroxine Sodium [Levo-T] 100 mcg PO QAM 10/28/18 [History] Lisinopril-HCTZ 20-12.5 [Prinzide 20-12.5] 1 tab PO DAILY 10/28/18 [History] Multivitamin [One Daily] 1 tab PO DAILY 10/28/18 [History] [place]-3/Dha/Epa/Fish Oil [Fish Oil 1,000 mg Softgel] 1 cap PO DAILY 10/28/18 [History] clonazePAM [Clonazepam] 0.5 mg PO HS 10/28/18 [History] OxyCODONE Immed Rel [Roxicodone 5 MG] 5 mg PO Q6HR PRN 5 Days #20 tablet 10/29/18 [Rx] Aspirin [Lo-Dose Aspirin EC] 81 mg PO DAILY 11/07/18 [History] Escitalopram [Lexapro] 10 mg PO DAILY 11/07/18 [History] Allergy/AdvReac Type Severity Reaction Status Date / Time Sulfa (Sulfonamide Allergy Unknown Verified 10/28/18 18:31 Antibiotics) All Systems PM: A 10-system review of systems was performed and is negative for pertinent findings except as documented above in the HPI. - Constitutional Vitals: Temp Pulse Resp BP Pulse Ox 98.7 F 74 16 141/89 94 11/07/18 17:49 11/07/18 19:45 11/07/18 19:45 11/07/18 19:45 11/07/18 19:45 General appearance: Present: A&O X 3 Exam: . Internal Med - H&P Results - Labs CBC & Chem 7: 11/07/18 17:53 11/07/18 17:53 Labs: Short CBC 11/07/18 Range/Units 17:53 WBC 14.4 H (4.3-11.1) K/mcL Hgb 12.4 (11.5-15.4) g/dL Hct 36.3 (35.3-44.9) % Plt Count 312 (140-400) K/mcL Neutrophils # 12.9 H (1.6-8.9) K/mcL BMP 11/07/18 17:53 Sodium 133 L Potassium 3.5 Chloride 98 Carbon Dioxide 23 BUN 10 Creatinine 0.71 Glucose 145 H Calcium 9.7 Cardiac Enzymes 11/07/18 Range/Units 17:53 Troponin I < 0.03 (< 0.04) ng/mL Liver Function 11/07/18 Range/Units 17:53 Total Bilirubin 1.2 H (0.3-1.0) mg/dL AST 21 (13-39) Units/L ALT 13 (7-52) Units/L Alkaline Phosphatase 62 (34-104) Units/L Albumin 4.3 (3.5-5.7) g/dL - Impressions ITS Impressions Chest CTA 11/07/18 17:55 IMPRESSION: 1. Acute bilateral pulmonary emboli. No CT evidence for right heart strain. 2. No focal consolidation identified. Critical results were called by Dr. New Weaver MD to Dr. Phill Nayak on 11/07/2018 at 20:05. D/ / New Weaver MD / New Weaver MD Interpreting Provider: New Weaver MD Chest X-Ray 11/07/18 17:59 IMPRESSION: No acute abnormality detected. D/ / Guanakito Romero MD / Guanakito Romero MD Interpreting Provider: Guanakito Romero MD - Time Spent With Patient Total time spent is greater than 50% in coordination of care (as documented) at patient's floor/unit and/or counseling patient:
[2018-11-07] MEDS: *HR* Promethazine 25 MG/ML VIAL IVP PRN (22:46)
[2018-11-07] MEDS: Ketorolac 30 MG/ML VIAL IVP PRN (22:46)
[2018-11-08] MEDS ORDERED: Haloperidol Lactate 5 MG/ML VIAL IVP ONE (00:16)
[2018-11-08] MEDS ORDERED: Haloperidol Lactate 5 MG/ML VIAL ONE (00:43)
[2018-11-08 03:37] LABS: Basophils % 0.2 %; Hematocrit 31.5 % (35.3-44.9); Lymphocytes % 6.6 %; Mean Corpuscular HGB Conc 33.7 g/dL (31.6-35.5); Mean Corpuscular Hemoglobin 32.4 pg (28.0-33.3); Mean Corpuscular Volume 96.3 fL (83.0-100.0); Mean Platelet Volume 8.7 fL (9.4-12.4); Monocytes # 0.5 K/mcL (0.0-1.3); Monocytes % 3.2 %; Platelet Count 285 K/mcL (140-400); Red Blood Count 3.27 M/mcL (3.82-4.97); Red Cell Distribution Width 13.8 % (11.5-14.5); White Blood Count 14.6 K/mcL (4.3-11.1)
[2018-11-08 03:38] LABS: Hemoglobin 10.6 g/dL (11.5-15.4)
[2018-11-08 03:57] LABS: BUN/Creatinine Ratio 15 (6-26); Blood Urea Nitrogen 11 mg/dL (8-23); Calcium 8.9 mg/dL (8.6-10.3); Carbon Dioxide 25 mEq/L (23-29); Chloride 98 mEq/L (98-107); Glucose 149 mg/dL (70-105); Osmolality,Calculated 282 (280-300); Potassium 3.7 mEq/L (3.5-5.1); Sodium 135 mEq/L (136-145); eGFR For African Americans > 60 (> 60); eGFR For Non-African Americans > 60 (> 60)
[2018-11-08] MEDS: *HR* Promethazine 25 MG/ML VIAL IVP PRN ×5 (04:03→21:19)
[2018-11-08] MEDS ORDERED: NON-FORMULARY MEDICATION 1 EACH EACH (Omega-3/Dha/Epa/Fish Oil [Fish Oil 1,000 Mg Softgel] PO SCH (09:00)
[2018-11-08] MEDS: Lisinopril-HCTZ 20-12.5mg TABLET PO SCH (09:01)
[2018-11-08] MEDS: Cholecalciferol (D-3) 1,000 UNIT (25MCG) TABLET PO SCH (09:01)
[2018-11-08] MEDS: Multivit/Ca/Min/Fe/FA 1 TAB TABLET PO SCH (09:01)
[2018-11-08] MEDS: Aspirin Enteric Coated 81 MG Tablet PO SCH (09:01)
[2018-11-08] MEDS ORDERED: Ondansetron 4 MG/2 ML VIAL IVP PRN (11:30)
--- NOTE | 2018-11-08 12:48 | Internal Med Progress Note ---
Hospitalist Progress Note - Encounter Date of Encounter: 11/08/18 Time of Encounter: 12:46 - Subjective Interval History: Patient was seen and examined at bedside. The patient denied breathing. Patient reports of weakness and nausea. Patient denies any fever and chills. Patient denied any abdominal pain, vomiting, diarrhea. - Exam Vitals: Temp Pulse Resp BP Pulse Ox 98.8 F 86 20 151/82 97 11/08/18 11:50 11/08/18 11:50 11/08/18 11:50 11/08/18 11:50 11/08/18 11:50 Exam: General: A & O 3, In distress due to nausea HENNT: PERRLA. Head atraumatic and makes supple CVS S1 and S2 regular, no murmur RS: Clear to air entry bilaterally, no wheeze, no crackles Abdomen: Soft and nontender. Bowel sounds normal 4 Extremities: Trace pitting edema bilaterally Neurology: Cranial 2 through 12 normal. Motor strength 5/5 bilaterally. Sensation intact - Assessment and Plan (1) Pulmonary embolism Current Visit: Yes Status: Acute Assessment and Plan: Symptoms into the emergency room yesterday with continued right leg pain. Patient is status post right right hip surgery on 10/28/2018. Upon initial evaluationy right peroneal vein DVT. CT showed b/l PE. Pt saturating above > 92% on room air. Denied KHANG - Pt placed on Heparin drip - History discharge patient on Xarelto - Patient has developed provoked VTE and will need at least 6 months of anticoagulations (2) DVT (deep venous thrombosis) Current Visit: Yes Status: Acute Assessment and Plan: Management as above. (3) Nausea Current Visit: Yes Status: Acute Assessment and Plan: Patient has been complaining of nausea since admission. Currently on Phenergan and Reglan. We will add IV Protonix. Continue to monitor. (4) Hypothyroidism Current Visit: Yes Status: Acute Assessment and Plan: Continue home Synthroid. (5) Arthritis of right hip Current Visit: No Status: Chronic Assessment and Plan: Continue Toradol. (6) HTN (hypertension) Current Visit: No Status: Chronic Assessment and Plan: Continue home antihypertensive medication. DVT Prophylaxis: Patient is on heparin drip. - Time Spent with Patient Total time spent is greater than 50% in coordination of care (as documented) at patient's floor/unit and/or counseling patient: 25 - 35 minutes Plan of Care Discussed with: patient Internal Medicine: Result - Labs CBC & Chem 7: 11/08/18 03:28 11/08/18 03:28 Labs: Short CBC 11/07/18 11/08/18 Range/Units 17:53 03:28 WBC 14.4 H 14.6 H (4.3-11.1) K/mcL Hgb 12.4 10.6 L D (11.5-15.4) g/dL Hct 36.3 31.5 L (35.3-44.9) % Plt Count 312 285 (140-400) K/mcL Neutrophils # 12.9 H 13.0 H (1.6-8.9) K/mcL BMP 11/07/18 11/08/18 17:53 03:28 Sodium 133 L 135 L Potassium 3.5 3.7 Chloride 98 98 Carbon Dioxide 23 25 BUN 10 11 Creatinine 0.71 0.72 Glucose 145 H 149 H Calcium 9.7 8.9 Cardiac Enzymes 11/07/18 Range/Units 17:53 Troponin I < 0.03 (< 0.04) ng/mL Liver Function 11/07/18 Range/Units 17:53 Total Bilirubin 1.2 H (0.3-1.0) mg/dL AST 21 (13-39) Units/L ALT 13 (7-52) Units/L Alkaline Phosphatase 62 (34-104) Units/L Albumin 4.3 (3.5-5.7) g/dL - ABG Interpretation ABG results: PT/INR, D-dimer PT 12.4 Seconds (9.4-12.1) H 11/07/18 21:07 - Impressions Impressions Chest CTA 11/07/18 17:55 IMPRESSION: 1. Acute bilateral pulmonary emboli. No CT evidence for right heart strain. 2. No focal consolidation identified. Critical results were called by Dr. New Weaver MD to Dr. Phill Nayak on 11/07/2018 at 20:05. D/ / New Weaver MD / New Weaver MD Interpreting Provider: New Weaver MD Chest X-Ray 11/07/18 17:59 IMPRESSION: No acute abnormality detected. D/ / Guanakito Romero MD / Guanakito Romero MD Interpreting Provider: Guanakito Romero MD Echocardiogram 11/08/18 07:00 Impressions: LVEF 65%. Normal LV chamber size, wall thickness and function. Normal right ventricular structure and function. Mild tricuspid regurgitation. Mild pulmonary hypertension. Left Ventricular Wall Motion: Rest Echo Findings All wall segments showed normal motion. Findings: Study Quality * Technically adequate exam. ECG Findings * Normal sinus rhythm. Left Ventricle * LVEF 65%. * Normal LV chamber size, wall thickness and systolic function. * Normal diastolic function. Right Ventricle * Normal right ventricular structure and function. Left Atrium * Normal left atrial size. Right Atrium * Normal right atrial size. Interatrial Septum * Interatrial septum not well evaluated. Aortic Valve * Aortic valve not well visualized. * No aortic stenosis. * No aortic regurgitation. Mitral Valve * Normal mitral valve structure. * No mitral stenosis. * Trace mitral regurgitation. Tricuspid Valve * Normal tricuspid valve structure. * No tricuspid stenosis. * Mild tricuspid regurgitation. * Estimated RVSP is 43 mmHg. * Estimated RA pressure is 3 mmHg. * Mild pulmonary hypertension. Pulmonic Valve * Pulmonic valve is not well visualized. * No pulmonic stenosis. * No pulmonic regurgitation. Aorta * Normally sized aortic root. Pericardium * The pericardium appears normal. IVC * The IVC is not dilated. * > 50% respiratory change Consult Discharge Plan - Plan Referrals: Catie Singh MD [Primary Care Provider] - 11/13/18 10:00 am (Please follow up as schedule...) (1) Pulmonary embolism Qualifiers: Pulmonary embolism type: unspecified Chronicity: acute Acute cor pulmonale presence: without acute cor pulmonale Qualified Code(s): I26.99 - Other pulmonary embolism without acute cor pulmonale (2) DVT (deep venous thrombosis) Qualifiers: DVT location: lower extremity Affected thrombotic vein of extremity: unspecified vein of extremity Chronicity: acute Laterality: right Qualified Code(s): I82.401 - Acute embolism and thrombosis of unspecified deep veins of right lower extremity (6) HTN (hypertension) Qualifiers: Hypertension type: unspecified Qualified Code(s): I10 - Essential (primary) hypertension
[2018-11-08] MEDS: Pantoprazole 40 MG VIAL IVP SCH (14:08)
[2018-11-08] MEDS: Ketorolac 30 MG/ML VIAL IVP PRN (14:08)
[2018-11-08] MEDS: traMADol 50 MG TABLET PO PRN (16:57)
[2018-11-08] MEDS: Heparin 25,000 UNIT/250 ML D5W 25,000 UNIT/250 ML IV.SOLN IVC SCH (16:58)
--- NOTE | 2018-11-08 20:05 | Electrocardiograph Report ---
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
[2018-11-08] MEDS: clonazePAM 0.5 MG TABLET PO SCH (21:19)
[2018-11-09] MEDS: *HR* Promethazine 25 MG/ML VIAL IVP PRN ×3 (04:02→21:39)
[2018-11-09] MEDS: traMADol 50 MG TABLET PO PRN (04:06)
[2018-11-09 07:37] LABS: Basophils % 0.1 %; Eosinophils % 0.1 %; Hematocrit 23.2 % (35.3-44.9); Lymphocytes # 2.5 K/mcL (0.6-4.6); Lymphocytes % 12.3 %; Mean Corpuscular HGB Conc 33.2 g/dL (31.6-35.5); Mean Corpuscular Hemoglobin 32.6 pg (28.0-33.3); Mean Corpuscular Volume 98.3 fL (83.0-100.0); Mean Platelet Volume 8.9 fL (9.4-12.4); Monocytes % 9.6 %; Neutrophils # 15.4 K/mcL (1.6-8.9); Platelet Count 275 K/mcL (140-400); Red Blood Count 2.36 M/mcL (3.82-4.97); Red Cell Distribution Width 14.5 % (11.5-14.5); Segmented Neutrophils % 75.9 %; White Blood Count 20.3 K/mcL (4.3-11.1)
[2018-11-09 07:57] LABS: BUN/Creatinine Ratio 26 (6-26); Blood Urea Nitrogen 17 mg/dL (8-23); Calcium 8.7 mg/dL (8.6-10.3); Carbon Dioxide 28 mEq/L (23-29); Chloride 98 mEq/L (98-107); Glucose 130 mg/dL (70-105); Osmolality,Calculated 283 (280-300); Potassium 3.5 mEq/L (3.5-5.1); Sodium 135 mEq/L (136-145); eGFR For African Americans > 60 (> 60); eGFR For Non-African Americans > 60 (> 60)
[2018-11-09 08:41] LABS: Hemoglobin 7.7 g/dL (11.5-15.4)
[2018-11-09] MEDS: Lisinopril-HCTZ 20-12.5mg TABLET PO SCH (08:41)
[2018-11-09] MEDS: Famotidine 20 MG TABLET PO SCH ×2 (08:41→21:39)
[2018-11-09] MEDS: Aspirin Enteric Coated 81 MG Tablet PO SCH (08:41)
[2018-11-09] MEDS: Multivit/Ca/Min/Fe/FA 1 TAB TABLET PO SCH (08:41)
[2018-11-09] MEDS: Cholecalciferol (D-3) 1,000 UNIT (25MCG) TABLET PO SCH (08:41)
[2018-11-09] MEDS: Pantoprazole 40 MG VIAL IVP SCH (08:42)
--- NOTE | 2018-11-09 10:45 | Pulmonology Consult Note ---
Date of Encounter: 11/09/18 Time of Encounter: 10:44 Assessment and Plan (1) Pulmonary embolism Current Visit: Yes Status: Acute Clearly the acute anemia and risk of bleeding and her significant drop in blood count from 12 on admission now down to 7.7 warrants at least temporary interruption of anticoagulation. I reviewed the patient's CT scan and ech ocardiogram there is no evidence of right heart strain and no hemodynamic instability these are small subsegmental pulmonary emboli and should not cause any further issues from that standpoint. There is no other surgical or nonsurgical intervention at this point that would be warranted for subsegmental PEs. I do recommend formal consultation with vascular surgery for placement of a temporary IVC filter pending further workup of her anemia by the primary team. Ideally she would benefit from at least 3 months of anticoagulation for provoked venous thromboembolism and this should be restarted when and if it is safe to do so. Thank you very much for this consultation please to not hesitate to call me with any further issues or concerns should they arise Tyree Pina [phone] Qualifiers: Pulmonary embolism type: unspecified Chronicity: acute Acute cor pulmonale presence: without acute cor pulmonale Qualified Code(s): I26.99 - Other pulmonary embolism without acute cor pulmonale (2) Acute blood loss anemia Current Visit: Yes Status: Suspected (3) Acute DVT (deep venous thrombosis) Current Visit: Yes Status: Acute Qualifiers: Affected thrombotic vein of extremity: unspecified vein of extremity Laterality: right Qualified Code(s): I82.401 - Acute embolism and thrombosis of unspecified deep veins of right lower extremity History of Present Illness Consult date: 11/09/18 Requesting physician: Howard Davidson Reason for consult: pulmonary embolism Chief complaint: Leg Pain History of present illness: This is a very pleasant 73-year-old woman who had a recent right total hip arthroplasty on 10/18/18 with discharged on high-dose aspirin and had been under going physical therapy but acutely had developed right leg pain and came to the emergency department where a ultrasound of the right lower leg which showed a DVT in the peroneal vein this is followed by contrasted CT scan of the chest which showed acute bilateral subsegmental PEs in the left upper and right lower lobe. She been doing well on anticoagulation but the hospital said noticed that patient's H&H had dropped and he was concern for bleeding. I was called to evaluate the patient for alternative options of management of her acute pulmonary embolus given the need to stop anticoagulation has of bleeding risk. Lupe tells me that she had she was at home before admission to the emergency room and had noticed that the her right leg was getting quite so swollen and painful. She had been placed on a lawn chair at her home and she says the weight of that sent "electrical shocks throughout [her] body" this was followed by intense nausea and inability to take any by mouth this prompted arrival to the emergency room. No previous history of bleeding disorder or anemia or blood clots. She is a lifelong nonsmoker and no significant pulmonary history. Today she denies any nausea vomiting hemoptysis blood in the stool or urine she denies any bleeding from the gums syncope or presyncope. She denies any chest pain. She does have a history of a hemorrhoid in the past and that caused some rectal bleeding but she is notanything like that since he been in the hospital or prior to admission Past Med Surg Social Fam HX - Past Medical History Medical history: arthritis, hypertension, thyroid disease, other Additional medical history: Hypothyrodism. Vertigo. Lumbar Stenosis Left. Lumbar and Facet Arthropathy. Mild Spondylisthesis at Lumbar 4 on 5 Psychiatric history: no psych history - Past Surgical History Surgical History: other Additional surgical history: Tubal Ligation. S/P Bladder Sx. D&C. bilateral hips - Social History Smoking Status: Never smoker Smokeless Tobacco Status: No Alcohol use: none Drug use: none - Family History Son Family Member Ethnicity: Non- Living Status: Still Living Hx Family Cardiac Disorders: Yes (HTN) Hx Family Respiratory Disorders: No Hx Family Cancer: No Hx Family GI Disorders: No Hx Family Endocrine Disorder: No Hx Family Neuromuscular Disorders: No Hx Family Neurologic Disorders: No Hx Family HEENT Disorders: No Hx Family Autoimmune Disorders: No Medications and Allergies Calcium Carbonate [Calcium] 500 mg PO DAILY 10/28/18 [History] Cholecalciferol (Vitamin D3) [Vitamin D3] 1,000 unit PO DAILY 10/28/18 [History] Levothyroxine Sodium [Levo-T] 100 mcg PO QAM 10/28/18 [History] Lisinopril-HCTZ 20-12.5 [Prinzide 20-12.5] 1 tab PO DAILY 10/28/18 [History] Multivitamin [One Daily] 1 tab PO DAILY 10/28/18 [History] [place]-3/Dha/Epa/Fish Oil [Fish Oil 1,000 mg Softgel] 1 cap PO DAILY 10/28/18 [History] clonazePAM [Clonazepam] 0.5 mg PO HS 10/28/18 [History] OxyCODONE Immed Rel [Roxicodone 5 MG] 5 mg PO Q6HR PRN 5 Days #20 tablet 10/29/18 [Rx] Aspirin [Lo-Dose Aspirin EC] 81 mg PO DAILY 11/07/18 [History] Escitalopram [Lexapro] 10 mg PO DAILY 11/07/18 [History] Tizanidine HCl 4 mg PO TID PRN 11/08/18 [History] Allergy/AdvReac Type Severity Reaction Status Date / Time Sulfa (Sulfonamide Allergy Unknown Verified 10/28/18 18:31 Antibiotics) All Systems: The remainder of the systems were reviewed and are negative Physical Examination Vital Signs: Vital Signs, Last 4 Hours Temp Pulse Resp BP Pulse Ox 11/09/18 07:24 98.2 F 76 17 131/76 96 General appearance: no acute distress Eyes: nonicteric Neck: supple Effort: normal Auscultation: bilateral: clear Cardiovascular: regular rate and rhythm Gastrointestinal: normoactive bowel sounds, soft, non-tender Extremities: other (X-rays are warm bilaterally there is some bruising on the right leg in the right thigh is typically much more taut and firm than the left. Pulses are palpable bilaterally) Results - Laboratory Findings CBC and BMP: 11/09/18 07:21 11/09/18 07:21 PT/INR, D-dimer PT 12.4 Seconds (9.4-12.1) H 11/07/18 21:07 Abnormal lab findings: Abnormal lab results WBC 20.3 K/mcL (4.3-11.1) H 11/09/18 07:21 RBC 2.36 M/mcL (3.82-4.97) L 11/09/18 07:21 Hgb 7.7 g/dL (11.5-15.4) L D 11/09/18 07:21 Hct 23.2 % (35.3-44.9) L 11/09/18 07:21 MPV 8.9 fL (9.4-12.4) L 11/09/18 07:21 Neutrophils # 15.4 K/mcL (1.6-8.9) H 11/09/18 07:21 Monocytes # 2.0 K/mcL (0.0-1.3) H 11/09/18 07:21 PT 12.4 Seconds (9.4-12.1) H 11/07/18 21:07 Heparin Anti-Xa, Unfract 1.16 IU/mL (0.30-0.70) H* 11/08/18 03:28 Sodium 135 mEq/L (136-145) L 11/09/18 07:21 Glucose 130 mg/dL (70-105) H 11/09/18 07:21 Calculated Osmolality 278 (280-300) L 11/07/18 17:53 Total Bilirubin 1.2 mg/dL (0.3-1.0) H 11/07/18 17:53 - Diagnostic Findings CT scan - chest: report reviewed, image reviewed - Clinical Findings Intake & Output: Intake & Output 11/08/18 11/09/18 11/09/18 23:59 07:59 15:59 Intake Total 240 / 380 240 / 560 320 / 560 Balance 240 / 380 240 / 560 320 / 560 Weight 93.1 kg Consult Discharge Plan - Plan Referrals: Catie Singh MD [Primary Care Provider] - 11/13/18 10:00 am (Please follow up as schedule...)
--- NOTE | 2018-11-09 11:06 | Internal Med Progress Note ---
Hospitalist Progress Note - Encounter Date of Encounter: 11/09/18 Time of Encounter: 11:04 - Subjective Interval History: Patient was seen and examined at bedside today. Patient denies any acute issues and concerns. Patient complains of right leg pain, 8 out of 10 in severity, nonradiating, without any aggravating factor. Patient is currently being tr eated for right leg DVT and bilateral pulmonary embolism. - Exam Vitals: Temp Pulse Resp BP Pulse Ox 98.2 F 76 17 131/76 96 11/09/18 07:24 11/09/18 07:24 11/09/18 07:24 11/09/18 07:24 11/09/18 07:24 Exam: General: A & O 3, In distress due to nausea HENNT: PERRLA. Head atraumatic and makes supple CVS S1 and S2 regular, no murmur RS: Clear to air entry bilaterally, no wheeze, no crackles Abdomen: Soft and nontender. Bowel sounds normal 4 Extremities: Trace pitting edema bilaterally Neurology: Cranial II-XII normal. Motor strength 5/5 bilaterally. Sensation intact - Assessment and Plan (1) Acute blood loss anemia Current Visit: Yes Status: Suspected Assessment and Plan: Pt currently being treated with heparin drip for right leg DVT and bilateral pulmonary embolism. Patient's hemoglobins dropping from 12.4 at admission to 7.7 today. Patient is having suspected active bleed. Patient's heparin drip was discontinued today. Pulmonary consult was placed for possible thrombectomy. Vacular surgery consult placed for possible IVC filter placement. Patient made nothing by mouth. Vascular surgery will evaluate patient today and paln is to do possible IVC filter placement today - FOBT ordered - Repeat H&H - Transfuse PRBC PRN - GI on consult. Spoke to Dr. Cox. Plan to EGD tomorrow (2) Leukocytosis Current Visit: Yes Status: Acute Assessment and Plan: The basic count jumped from 14 at admission to 20 today. Patient denied any fever and chills. Patient denied any cough. Likely due to stress. Unlikely infectious etiology - Chest x-ray ordered - UA ordered - Pro calcitonin ordered. - We will monitor (3) Pulmonary embolism Current Visit: Yes Status: Acute Assessment and Plan: Symptoms into the emergency room yesterday with continued right leg pain. Patient is status post right right hip surgery on 10/28/2018. Upon initial evaluation right peroneal vein DVT. CT showed b/l PE. Pt saturating above > 92% on room air. Denied KHANG - Pt placed on Heparin drip on admission. However, patient hemoglobin is currently dropping from 12.4 at admission to 7.7 today. Patient is currently having suspected active bleeding. Heparin drip discontinued. Pulmonary consult placed for possible surgical intervention. Per pulmonary patient is not a candidate for thrombectomy in the absence of right heart strain. Muscular secondary consulted for evaluation of IVC filter placement. (4) DVT (deep venous thrombosis) Current Visit: Yes Status: Acute Assessment and Plan: Management as above. (5) Nausea Current Visit: Yes Status: Acute Assessment and Plan: Patient is currently on Phenergan and Reglan. Placed on Protonix and Pepcid. Continue to monitor. (6) Hypothyroidism Current Visit: Yes Status: Acute Assessment and Plan: Continue home Synthroid. (7) Arthritis of right hip Current Visit: No Status: Chronic Assessment and Plan: Continue Ultram and [place] (8) HTN (hypertension) Current Visit: No Status: Chronic Assessment and Plan: Continue home antihypertensive medication. DVT Prophylaxis: Heparin drip discontinued due to concern of suspected active bleeding. We will place patient on antiembolic stocking. - Time Spent with Patient Total time spent is greater than 50% in coordination of care (as documented) at patient's floor/unit and/or counseling patient: Internal Medicine: Result - Labs CBC & Chem 7: 11/09/18 07:21 11/09/18 07:21 Labs: Short CBC 11/09/18 Range/Units 07:21 WBC 20.3 H (4.3-11.1) K/mcL Hgb 7.7 L D (11.5-15.4) g/dL Hct 23.2 L (35.3-44.9) % Plt Count 275 (140-400) K/mcL Neutrophils # 15.4 H (1.6-8.9) K/mcL BMP 11/09/18 07:21 Sodium 135 L Potassium 3.5 Chloride 98 Carbon Dioxide 28 BUN 17 Creatinine 0.66 Glucose 130 H Calcium 8.7 - ABG Interpretation ABG results: PT/INR, D-dimer PT 12.4 Seconds (9.4-12.1) H 11/07/18 21:07 - Impressions Impressions Echocardiogram 11/08/18 07:00 Impressions: LVEF 65%. Normal LV chamber size, wall thickness and function. Normal right ventricular structure and function. Mild tricuspid regurgitation. Mild pulmonary hypertension. Left Ventricular Wall Motion: Rest Echo Findings All wall segments showed normal motion. Findings: Study Quality * Technically adequate exam. ECG Findings * Normal sinus rhythm. Left Ventricle * LVEF 65%. * Normal LV chamber size, wall thickness and systolic function. * Normal diastolic function. Right Ventricle * Normal right ventricular structure and function. Left Atrium * Normal left atrial size. Right Atrium * Normal right atrial size. Interatrial Septum * Interatrial septum not well evaluated. Aortic Valve * Aortic valve not well visualized. * No aortic stenosis. * No aortic regurgitation. Mitral Valve * Normal mitral valve structure. * No mitral stenosis. * Trace mitral regurgitation. Tricuspid Valve * Normal tricuspid valve structure. * No tricuspid stenosis. * Mild tricuspid regurgitation. * Estimated RVSP is 43 mmHg. * Estimated RA pressure is 3 mmHg. * Mild pulmonary hypertension. Pulmonic Valve * Pulmonic valve is not well visualized. * No pulmonic stenosis. * No pulmonic regurgitation. Aorta * Normally sized aortic root. Pericardium * The pericardium appears normal. IVC * The IVC is not dilated. * > 50% respiratory change Consult Discharge Plan - Plan Referrals: Catie Singh MD [Primary Care Provider] - 11/13/18 10:00 am (Please follow up as schedule...) (2) Leukocytosis Qualifiers: Leukocytosis type: unspecified Qualified Code(s): D72.829 - Elevated white blood cell count, unspecified (3) Pulmonary embolism Qualifiers: Pulmonary embolism type: unspecified Chronicity: acute Acute cor pulmonale presence: without acute cor pulmonale Qualified Code(s): I26.99 - Other pulmonary embolism without acute cor pulmonale (4) DVT (deep venous thrombosis) Qualifiers: DVT location: lower extremity Affected thrombotic vein of extremity: unspecified vein of extremity Chronicity: acute Laterality: right Qualified Code(s): I82.401 - Acute embolism and thrombosis of unspecified deep veins of right lower extremity (8) HTN (hypertension) Qualifiers: Hypertension type: unspecified Qualified Code(s): I10 - Essential (primary) h ypertension
--- NOTE | 2018-11-09 11:17 | Event Note ---
Date of Encounter: 11/08/18 Time of Encounter: 13:40 POD#11 s/p R THR ROBOTIC Date: 10/28/2018 Patient seen at bedside. Daughter in law and son at bedside. A&Ox3 Dressing and incision c/d/i Right calf tenderness. Neurovascularly intact b/l LE. Patient admits to nausea and vomiting with taking deep breath. She states this started after she got home from her appt at [facility] yesterday. She relates she had to call EMS to help her into her house upon arriving home yesterday because she could not bear weight onto the RLE secondary to pain in her leg per patient. She states as the day progressed she felt worse and worse and started vomiting which per patient and daughter in law was actually what brought her to the ED. Labwork, vitals, and medications reviewed. Pain control: Inadequate - she states anything she has consumed including medication she has vomited back up. Patient states she has not been out of bed since arrival. All questions and concerns addressed. Educated on use of incentive spirometer, ambulation, and hydration. Patient educated on post-operative restrictions and care. Addressed: will consult PT/OT for bed exercises if patient not allowed to ambulate re: PE. Patient course and disposition discussed with Dr. Howe Please reach out to orthopedics team with any questions or concerns regarding patient's recent right total hip replacement. Please follow total hip precautions to reduce likelihood of dislocation or slow wound healing; do not pivot on operative extremity, do not allow operative extremity to cross midline as in crossing legs, do not flex hip past 90 degrees. Apply cold therapy 3-6x/day for 20 minutes at a time. Encourage ambulation throughout the day and incentive spirometer 10x/hour. - again as allowed by patient's pulmonary restrictions. Elevate affected extremity as tolerated, but no more than 90 degrees of hip flexion to prevent dislocation Brace: Wear hip abduction pillow when laying/sleeping Do not remove dressing unless 50% or greater saturated in which case dressing should be replaced with occlusive dressing and ortho notified. Patient to keep outpatient follow up as scheduled with [facility].
[2018-11-09] MEDS ORDERED: Heparin 1,000 UNITS/500 mL 500 ML ONE (11:33)
[2018-11-09] MEDS ORDERED: 0.9 % Sodium Chloride 1,000 ML ONE (11:33)
[2018-11-09] MEDS ORDERED: Isovue-250 100 ML INFUS..BTL ONE (11:33)
[2018-11-09] MEDS ORDERED: Isovue-300 150 ML INFUS..BTL ONE (11:36)
[2018-11-09 11:50] LABS: Hemoglobin 7.9 g/dL (11.5-15.4)
--- NOTE | 2018-11-09 11:53 | Vascular/Endovasc Consult Note ---
Date of Encounter: 11/09/18 Time of Encounter: 11:51 Assessment and Plan (1) Pulmonary embolism Current Visit: Yes Status: Acute Qualifiers: Pulmonary embolism type: unspecified Chronicity: acute Acute cor pulmonale presence: without acute cor pulmonale Qualified Code(s): I26.99 - Other pulmonary embolism without acute cor pulmonale (2) Acute blood loss anemia Current Visit: Yes Status: Suspected (3) Acute DVT (deep venous thrombosis) Current Visit: Yes Status: Acute Plan IVC filter placement this morning. Qualifiers: DVT location: lower extremity Affected thrombotic vein of extremity: unspecified vein of extremity Laterality: right Qualified Code(s): I82.401 - Acute embolism and thrombosis of unspecified deep veins of right lower extremity - History of Present Illness Consult date: 11/09/18 Consult reason: DVT and anemia Chief complaint: Swelling History of present illness: Ms. Gan is a 73 year old female With undergone a recent right hip surgery on October 28. Patient came in with leg pain and swelling. Duplex scan indicated right lower extremity swelling and DVT. Patient was placed on intravenous heparin. She had a dramatic drop in her hemoglobin to only 7.7 g. Because of this an IVC filter was requested. Past Med Surg Social Fam HX - Past Medical History Medical history: arthritis, hypertension, thyroid disease, other Additional medical history: Hypothyrodism. Vertigo. Lumbar Stenosis Left. Lumbar and Facet Arthropathy. Mild Spondylisthesis at Lumbar 4 on 5 Psychiatric history: no psych history - Past Surgical History Surgical History: other Additional surgical history: Tubal Ligation. S/P Bladder Sx. D&C. bilateral hips - Social History Smoking Status: Never smoker Smokeless Tobacco Status: No Alcohol use: none Drug use: none - Family History Son Family Member Ethnicity: Non- Living Status: Still Living Hx Family Cardiac Disorders: Yes (HTN) Hx Family Respiratory Disorders: No Hx Family Cancer: No Hx Family GI Disorders: No Hx Family Endocrine Disorder: No Hx Family Neuromuscular Disorders: No Hx Family Neurologic Disorders: No Hx Family HEENT Disorders: No Hx Family Autoimmune Disorders: No Medications and Allergies Calcium Carbonate [Calcium] 500 mg PO DAILY 10/28/18 [History] Cholecalciferol (Vitamin D3) [Vitamin D3] 1,000 unit PO DAILY 10/28/18 [History] Levothyroxine Sodium [Levo-T] 100 mcg PO QAM 10/28/18 [History] Lisinopril-HCTZ 20-12.5 [Prinzide 20-12.5] 1 tab PO DAILY 10/28/18 [History] Multivitamin [One Daily] 1 tab PO DAILY 10/28/18 [History] [place]-3/Dha/Epa/Fish Oil [Fish Oil 1,000 mg Softgel] 1 cap PO DAILY 10/28/18 [History] clonazePAM [Clonazepam] 0.5 mg PO HS 10/28/18 [History] OxyCODONE Immed Rel [Roxicodone 5 MG] 5 mg PO Q6HR PRN 5 Days #20 tablet 10/29/18 [Rx] Aspirin [Lo-Dose Aspirin EC] 81 mg PO DAILY 11/07/18 [History] Escitalopram [Lexapro] 10 mg PO DAILY 11/07/18 [History] Tizanidine HCl 4 mg PO TID PRN 11/08/18 [History] Allergy/AdvReac Type Severity Reaction Status Date / Time Sulfa (Sulfonamide Allergy Unknown Verified 10/28/18 18:31 Antibiotics) All Systems Review: The remainder of the systems were reviewed and are negative Exam Vital Signs, Last 4 Hours Temp Pulse Resp BP Pulse Ox 11/09/18 11:10 98.8 F 78 17 122/76 95 General: Present: Conversant, No Apparent Distress, Well developed, Well nourished HEENT: Present: Atraumatic, Normocephaly, Trachea midline Neck: Absent: JVD, Midline deformity Lungs: Present: No Wheeze, Rales, Rhonchi Neuro: Present: Alert and responsive, No focal deficits noted, Cranial nerves grossly intact Abdomen: Present: Soft, Non-tender Consult Discharge Plan - Plan Referrals: Catie Singh MD [Primary Care Provider] - 11/13/18 10:00 am (Please follow up as schedule...)
--- NOTE | 2018-11-09 11:55 | Pre-Sedation Evaluation ---
Pre-sedation evaluation - Pre-sedation checklist Recent Vitals: Last Vital Signs Temp 98.8 F 11/09/18 11:10 Pulse 78 11/09/18 11:10 Resp 17 11/09/18 11:10 BP 122/76 11/09/18 11:10 Pulse Ox 95 11/09/18 11:10 ASA Classification *see protocol: CLASS III-Severe systemic disease Plan of Care: Pt appropriate candidate for procedure/moderate/conscious sedation, Risks/benefits of procedure/sedation discussed w/ patient/family
[2018-11-09] MEDS ORDERED: *HR* Midazolam HCl 2 MG/2 ML VIAL ONE (12:09)
[2018-11-09] MEDS ORDERED: *HR* FentaNYL (PF) 100 MCG/2 ML VIAL ONE (12:09)
--- NOTE | 2018-11-09 12:30 | Gastroenterology Consult Note ---
Date of Encounter: 11/10/18 Time of Encounter: 20:00 - Assessment and plan (1) Anemia Current Visit: Yes Status: Acute Assessment and plan: Plan EGD. Check imaging of the hip to make sure there is no bleeding bleeding there to look for the cause of anemia. Patient refuses colonoscopy and I feel is not indicated at this time. She can have that as outpatient at some point Qualifiers: Anemia type: iron deficiency Iron deficiency anemia type: chronic blood loss Qualified Code(s): D50.0 - Iron deficiency anemia secondary to blood loss (chronic) (2) Acute DVT (deep venous thrombosis) Current Visit: Yes Status: Acute Assessment and plan: The hospitalist service Qualifiers: DVT location: lower extremity Affected thrombotic vein of extremity: unspecified vein of extremity Laterality: right Qualified Code(s): I82.401 - Acute embolism and thrombosis of unspecified deep veins of right lower extremity (3) Pulmonary embolism Current Visit: Yes Status: Acute Qualifiers: Pulmonary embolism type: unspecified Chronicity: acute Acute cor pulmonale presence: without acute cor pulmonale Qualified Code(s): I26.99 - Other pulmonary embolism without acute cor pulmonale (4) Arthritis of right hip Current Visit: No Status: Chronic (5) HTN (hypertension) Current Visit: No Status: Chronic Qualifiers: Hypertension type: unspecified Qualified Code(s): I10 - Essential (primary) hypertension (6) Obesity Current Visit: No Status: Chronic Assessment and plan: We discussed weight loss measures Qualifiers: Obesity type: unspecified obesity type Obesity classification: unspecified obesity classification Serious obesity comorbidity presence: unspecified whether serious comorbidity present Qualified Code(s): E66.9 - Obesity, unspecified - Time Spent With Patient Total time spent is greater than 50% in coordination of care (as documented) at patient's floor/unit and/or counseling patient: Greater than 35 minutes GI History of Present Illness - Data of Consult Requesting Physician: Howard Davidson MD - Consult Narrative Reason for consult: Severe anemia, drop in hemoglobin, DVT and subsegmental PE History of present illness: Ms. Gan is a 73 year old female who underwent Right hip replacement on 10/28/2018 sent home on Aspirin comes in with right lower extremity pain and swelling and diagnosed with DVT and subsegmental PE by chest CTA on admission. There is no witnessed episode of hematochezia or hematemesis or melena she has been complaining of a lot of stomach problems before of heartburn and epigastric pain but no dysphagia. She has never had an upper endoscopy date and spite having 2 first-degree relatives with colon cancer she has never had a colonoscopy to date. Past Med Surg Social Fam HX - Past Medical History Medical history: arthritis, hypertension, thyroid disease, other Additional medical history: Hypothyrodism. Vertigo. Lumbar Stenosis Left. Lumbar and Facet Arthropathy. Mild Spondylisthesis at Lumbar 4 on 5 Psychiatric history: no psych history - Past Surgical History Surgical History: other Additional surgical history: Tubal Ligation. S/P Bladder Sx. D&C. bilateral hips - Social History Smoking Status: Never smoker Smokeless Tobacco Status: No Alcohol use: none Drug use: none - Family History Son Family Member Ethnicity: Non- Living Status: Still Living Hx Family Cardiac Disorders: Yes (HTN) Hx Family Respiratory Disorders: No Hx Family Cancer: No Hx Family GI Disorders: No Hx Family Endocrine Disorder: No Hx Family Neuromuscular Disorders: No Hx Family Neurologic Disorders: No Hx Family HEENT Disorders: No Hx Family Autoimmune Disorders: No - Gastrointestinal Gastrointestinal: Present: as per HPI, abdominal pain, bloating, dyspepsia, heartburn - Constitutional Constitutional: as per HPI, fatigue - Respiratory Respiratory IM: Present: dyspnea - Constitutional Vitals: Temp Pulse Resp BP Pulse Ox 98.8 F 78 17 122/76 95 11/09/18 11:10 11/09/18 11:10 11/09/18 11:10 11/09/18 11:10 11/09/18 11:10 - Head Head exam: Present: atraumatic, normal inspection, normocephalic Additional comments: Pallor - Eye Eye exam: Present: EOMI, PERRL - Rectal Rectal exam: Present: deferred Results - Labs CBC & Chem 7: 11/10/18 13:33 11/10/18 06:41 Labs: Last Result 11/09/18 07:21 Calcium 8.7 Entire Visit 11/09/18 11/09/18 07:21 11:34 Hgb 7.7 L D 7.9 L Hct 23.2 L 24.0 L - ABG ABG results: PT/INR, D-dimer PT 12.4 Seconds (9.4-12.1) H 11/07/18 21:07 - Impressions Impressions Chest X-Ray 11/09/18 09:41 IMPRESSION: No acute cardiopulmonary disease. D/ / Disha Ferrell MD / Disha Ferrell MD Interpreting Provider: Disha Ferrell MD Consult Discharge Plan - Plan Referrals: Catie Singh MD [Primary Care Provider] - 11/13/18 10:00 am (Please follow up as schedule...)
--- NOTE | 2018-11-09 12:37 | Procedure Note ---
Date of procedure: 11/09/18 Pre-op diagnosis: DVT/Pulm Embolus/anemia Post-op diagnosis: same Procedure: Inferior venacavogram Insertion of Celect IVC filter Anesthesia: MAC Surgeon: Narayan Kinney Was there an retirement assistant present: No Estimated blood loss (cc): 0 Specimen: 0 Condition: stable Disposition: floor
[2018-11-09 14:00] LABS: Bilirubin,Urine Negative (Negative); Blood,Urine Negative (Negative); Clarity,Urine Clear (Clear); Color,Urine Yellow (Yellow); Glucose,Urine (UA) Normal (Normal); Ketones,Urine Trace mg/dL (Negative); Leukocyte Esterase,Urine Negative (Negative); Nitrite,Urine Negative (Negative); Protein,Urine Negative (Neg-Trace); Specific Gravity,Urine > 1.030 (1.010-1.025); Urobilinogen,Urine Normal (Normal)
[2018-11-09 15:42] LABS: % Iron Saturation 18 % (15-50); Iron 52 mcg/dL (50-170); Lactate Dehydrogenase 241 Units/L (140-271); Transferrin 202 mg/dL (203-362)
[2018-11-09] MEDS: *HR* HYDROcodone/Acet 5/325 mg TABLET PO PRN ×2 (15:58→21:39)
[2018-11-09] MEDS: Metoclopramide 10 MG/2 ML VIAL IVP PRN (15:58)
[2018-11-09 16:01] LABS: Ferritin 233 ng/mL (10-120)
[2018-11-09] MEDS ORDERED: 0.9 % Sodium Chloride 250 ML ONE (18:36)
[2018-11-09] MEDS: clonazePAM 0.5 MG TABLET PO SCH (21:39)
[2018-11-10 06:52] LABS: Basophils % 0.2 %; Eosinophils # 0.2 K/mcL (0.0-0.6); Eosinophils % 0.9 %; Hematocrit 23.6 % (35.3-44.9); Hemoglobin 7.9 g/dL (11.5-15.4); Lymphocytes # 2.1 K/mcL (0.6-4.6); Lymphocytes % 12.5 %; Mean Corpuscular HGB Conc 33.5 g/dL (31.6-35.5); Mean Corpuscular Hemoglobin 32.1 pg (28.0-33.3); Mean Corpuscular Volume 95.9 fL (83.0-100.0); Mean Platelet Volume 8.8 fL (9.4-12.4); Monocytes # 1.6 K/mcL (0.0-1.3); Monocytes % 9.7 %; Neutrophils # 12.4 K/mcL (1.6-8.9); Platelet Count 245 K/mcL (140-400); Red Blood Count 2.46 M/mcL (3.82-4.97); Segmented Neutrophils % 74.7 %; White Blood Count 16.7 K/mcL (4.3-11.1)
[2018-11-10 07:11] LABS: BUN/Creatinine Ratio 22 (6-26); Blood Urea Nitrogen 13 mg/dL (8-23); Calcium 8.5 mg/dL (8.6-10.3); Carbon Dioxide 29 mEq/L (23-29); Chloride 97 mEq/L (98-107); Glucose 111 mg/dL (70-105); Osmolality,Calculated 279 (280-300); Potassium 3.4 mEq/L (3.5-5.1); Sodium 134 mEq/L (136-145); eGFR For African Americans > 60 (> 60); eGFR For Non-African Americans > 60 (> 60)
[2018-11-10] MEDS ORDERED: *HR* Propofol 200 MG/20 ML VIAL IVP ONE (07:11)
[2018-11-10] MEDS ORDERED: Ondansetron 4 MG/2 ML VIAL ONE (07:11)
[2018-11-10] MEDS ORDERED: Lidocaine -MPF 2% 2 ML VIAL ONE (07:11)
[2018-11-10] MEDS ORDERED: Potassium Chloride 20 MEQ, Lidocaine 1% 2 ML in 0.9 % Sodium Chloride 250 ML IVPB ONE (07:36)
[2018-11-10] MEDS ORDERED: Simethicone 40 MG/0.6 ML MLS IR ONE (07:50)
[2018-11-10] MEDS: Lisinopril-HCTZ 20-12.5mg TABLET PO SCH (08:43)
[2018-11-10] MEDS: Multivit/Ca/Min/Fe/FA 1 TAB TABLET PO SCH (08:43)
[2018-11-10] MEDS: Cholecalciferol (D-3) 1,000 UNIT (25MCG) TABLET PO SCH (08:43)
[2018-11-10] MEDS: Aspirin Enteric Coated 81 MG Tablet PO SCH (08:43)
[2018-11-10] MEDS: Pantoprazole 40 MG VIAL IVP SCH (08:43)
[2018-11-10] MEDS: Famotidine 20 MG TABLET PO SCH ×2 (08:43→20:44)
--- NOTE | 2018-11-10 09:04 | Anesthesia Evaluation PreOp ---
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: Other (Vertigo) Other Medical History: Thyroid (Hypothyroid), Other (Obese) Anesthesia History: No Prior Anesthetic Complications : No Alcohol Use: none Drug use: none Medications and Allergies Calcium Carbonate [Calcium] 500 mg PO DAILY 10/28/18 [History] Cholecalciferol (Vitamin D3) [Vitamin D3] 1,000 unit PO DAILY 10/28/18 [History] Levothyroxine Sodium [Levo-T] 100 mcg PO QAM 10/28/18 [History] Lisinopril-HCTZ 20-12.5 [Prinzide 20-12.5] 1 tab PO DAILY 10/28/18 [History] Multivitamin [One Daily] 1 tab PO DAILY 10/28/18 [History] [place]-3/Dha/Epa/Fish Oil [Fish Oil 1,000 mg Softgel] 1 cap PO DAILY 10/28/18 [History] clonazePAM [Clonazepam] 0.5 mg PO HS 10/28/18 [History] OxyCODONE Immed Rel [Roxicodone 5 MG] 5 mg PO Q6HR PRN 5 Days #20 tablet 10/29/18 [Rx] Aspirin [Lo-Dose Aspirin EC] 81 mg PO DAILY 11/07/18 [History] Escitalopram [Lexapro] 10 mg PO DAILY 11/07/18 [History] Tizanidine HCl 4 mg PO TID PRN 11/08/18 [History] Allergy/AdvReac Type Severity Reaction Status Date / Time Sulfa (Sulfonamide Allergy Unknown Verified 10/28/18 18:31 Antibiotics) - Meds/Allergy Pre-op Review Medications Reviewed: Yes Allergies Reviewed: Yes Beta Blockers on Current Med List: No Anesthesia Results - Labs 11/10/18 06:41 11/10/18 06:41 - Imaging EKG: report reviewed (SR) Additional studies: ECHO EF 60%, mild pulm htn Anesthesia Exam O2 Sat Weight 93.3 kg O2 Sat by Pulse Oximetry 97 O2 Sat by Pulse Oximetry 93 O2 Sat by Pulse Oximetry 97 O2 Sat by Pulse Oximetry 96 O2 Sat by Pulse Oximetry 94 O2 Sat by Pulse Oximetry 98 O2 Sat by Pulse Oximetry 95 Vital Signs Temp Pulse Resp BP Pulse Ox 98.7 F 77 24 136/108 100 11/07/18 17:49 11/07/18 17:49 11/07/18 17:49 11/07/18 17:49 11/07/18 17:49 Height: 5'3 Weight: 205 lbs NPO (# of Hours): MN Pain Scale: 0 - HEENT Pupil (Motor): Pupils equal, EOMI Mallampati: III Oral Opening: Less than or equal to 3 - BODY PRESS OPERATOR LOC: Oriented BODY PRESS OPERATOR Motor: Normal RUE, Normal LUE, Normal RLE, Normal LLE, Normal Face BODY PRESS OPERATOR Sensory: Normal: RUE, LUE, RLE, LLE, Face - Cardiac Rhythm: Regular Murmur: None JVD: No Carotid Bruit: No - Pulmonary Breath Sounds: bilateral Clear Respiratory Effort: Symmetrical Anesthesia Assess/Plan ASA Score: 3 (HTN Obese Anemia DVT Hypothyroid) Level of consciousness: Cooperative, Oriented Anesthetic Plan: MAC Monitoring Plan: Standard Monitors Recovery Plan: Other (Discussed MAC, agrees to proceed)
--- NOTE | 2018-11-10 11:05 | Internal Med Progress Note ---
Hospitalist Progress Note - Encounter Date of Encounter: 11/10/18 Time of Encounter: 11:02 - Subjective Interval History: She was seen and examined at bedside today. Patient denied any acute issues and concerns overnight. Patient reports right hip pain. Patient denies any other issue other than the right hip pain. - Exam Vitals: Temp Pulse Resp BP Pulse Ox 98.6 F 85 16 107/74 98 11/10/18 10:11/10/18 10:11/10/18 10:11/10/18 10:11/10/18 10:01 Exam: General: A & O 3, In distress due to nausea HENNT: PERRLA. Head atraumatic and makes supple CVS S1 and S2 regular, no murmur RS: Clear to air entry bilaterally, no wheeze, no crackles Abdomen: Soft and nontender. Bowel sounds normal 4 Extremities: Trace pitting edema bilaterally Neurology: Cranial II-XII normal. Motor strength 5/5 bilaterally. Sensation intact - Assessment and Plan (1) Acute blood loss anemia Current Visit: Yes Status: Suspected Assessment and Plan: Most likely due to acute blood loss and element of hematoma on the right gluteus muscle. Patient has CT scan yesterday which showed right periprosthetic acute fracture of the femur. Patient was on heparin drip for the DVT and bilateral pulmonary embolism. Heparin drip was stopped yesterday. Patient has a IVC filter placed yesterday. Orthopedic surgery on consult for periprosthetic fract ure. Plan fo rsurgery in 2-3 days. - PRBC X1 yesterday. Hemoglobin is 7.9 today. Repeat H & H later in the PM - GI on consult. Spoke to Dr. Cox. EGD done today. We will follow up on the report. (2) Hematoma Current Visit: Yes Status: Acute Assessment and Plan: Olivera has a hematoma around the surgical site. Orthopedic surgery on consult and informed about the hematoma. Plan to do surgery in 2-3 days. (3) Periprosthetic fracture around internal prosthetic hip joint Current Visit: Yes Status: Acute Assessment and Plan: Patient was complaining of right hip pain. CT scan and right hip x-ray was done yesterday. Imaging studies revealed periprosthetic fracture around right femur. Orthopedic consult. I spoke to Dr. Howe and plan to do surgery in 2-3 days. Patient denied any fall. (4) Leukocytosis Current Visit: Yes Status: Acute Assessment and Plan: Recent has a leukocytosis of 20 yesterday. The patient's WBC 16.7 and down trending. She denied any fever and chills. Chest x-ray was negative for any infection. UA was negative for any infection. Pro calcitonin was negative. Patient is not placed on an antibiotic since it is likely due to stress reactive. Suspicion of infectious etiologies less likely. (5) Pulmonary embolism Current Visit: Yes Status: Acute Assessment and Plan: In the left right gluteus muscle hematoma. Heparin was discontinued. vascular surgery on consult and placed IVC filter. No AC at this time due to active bleeding. Denies any difficulty in breathing and patient is saturating about 92% on room air. We will continue to monitor. (6) DVT (deep venous thrombosis) Current Visit: Yes Status: Acute Assessment and Plan: Management as above. (7) Nausea Current Visit: Yes Status: Acute Assessment and Plan: Patient is currently on Phenergan and Reglan. Placed on Protonix and Pepcid. Continue to monitor. (8) Hypothyroidism Current Visit: Yes Status: Acute Assessment and Plan: Continue home Synthroid. (9) Arthritis of right hip Current Visit: No Status: Chronic Assessment and Plan: Continue Ultram and [place] (10) HTN (hypertension) Current Visit: No Status: Chronic Assessment and Plan: Continue home antihypertensive medication. - Time Spent with Patient Total time spent is greater than 50% in coordination of care (as documented) at patient's floor/unit and/or counseling patient: 25 - 35 minutes Plan of Care Discussed with: patient Internal Medicine: Result - Labs CBC & Chem 7: 11/10/18 06:41 11/10/18 06:41 Labs: Short CBC 11/09/18 11/10/18 Range/Units 11:34 06:41 WBC 16.7 H (4.3-11.1) K/mcL Hgb 7.9 L 7.9 L (11.5-15.4) g/dL Hct 24.0 L 23.6 L (35.3-44.9) % Plt Count 245 (140-400) K/mcL Neutrophils # 12.4 H (1.6-8.9) K/mcL BMP 11/10/18 06:41 Sodium 134 L Potassium 3.4 L Chloride 97 L Carbon Dioxide 29 BUN 13 Creatinine 0.59 L Glucose 111 H Calcium 8.5 L Urine 11/09/18 Range/Units 13:44 Urine Color Yellow (Yellow) Urine Clarity Clear (Clear) Urine pH 6.0 (5.0-8.0) pH Units Ur Specific [place] > 1.030 H (1.010-1.025) Urine Protein Negative (Neg-Trace) mg/dL Urine Glucose (UA) Normal (Normal) mg/dL - ABG Interpretation ABG results: PT/INR, D-dimer PT 12.4 Seconds (9.4-12.1) H 11/07/18 21:07 - Impressions Impressions Chest X-Ray 11/09/18 09:41 IMPRESSION: No acute cardiopulmonary disease. D/ / Disha Ferrell MD / Disha Ferrell MD Interpreting Provider: Disha Ferrell MD Hip CT 11/09/18 14:44 IMPRESSION: 1. Acute periprosthetic fracture of the proximal right femur involving the right lesser trochanter which is displaced by approximately 3 cm. 2. Complex fluid within the right gluteus musculature adjacent to the fracture most compatible with hematoma. This measures approximately 6.0 x 12.5 x 12.1 cm. 3. Organized fluid within the right lateral soft tissues of the thigh measuring approximately 2.5 x 4.2 x 6.6 cm. 4. Complex intramuscular fluid involving the proximal vastus medialis muscle measuring 1.9 x 2.1 x 4.5 cm which is most compatible with intramuscular hematoma given adjacent fracture. 5. No acute osseous abnormality of the distal right lower extremity identified. 6. Multiple Tarlov cysts of the sacrum. 7. Moderate tricompartmental osteoarthritis of the right knee. D/ / New Weaver MD / New Weaver MD Interpreting Provider: New Weaver MD Lower Extremity CT 11/09/18 14:44 IMPRESSION: 1. Acute periprosthetic fracture of the proximal right femur involving the right lesser trochanter which is displaced by approximately 3 cm. 2. Complex fluid within the right gluteus musculature adjacent to the fracture most compatible with hematoma. This measures approximately 6.0 x 12.5 x 12.1 cm. 3. Organized fluid within the right lateral soft tissues of the thigh measuring approximately 2.5 x 4.2 x 6.6 cm. 4. Complex intramuscular fluid involving the proximal vastus medialis muscle measuring 1.9 x 2.1 x 4.5 cm which is most compatible with intramuscular hematoma given adjacent fracture. 5. No acute osseous abnormality of the distal right lower extremity identified. 6. Multiple Tarlov cysts of the sacrum. 7. Moderate tricompartmental osteoarthritis of the right knee. D/ / New Weaver MD / New Weaver MD Interpreting Provider: New Weaver MD Hip X-Ray 11/09/18 17:23 IMPRESSION: 1. 3 cm distracted acute fracture across the lesser trochanter proximal left femur stable compared with CT. 2. Unchanged appearance of bipolar right hip arthroplasty. D/ / Mando De Guzman / Mando De Guzman Interpreting Provider: Mando De Guzman Consult Discharge Plan - Plan Referrals: Catie Singh MD [Primary Care Provider] - 11/13/18 10:00 am (Please follow up as schedule...) (4) Leukocytosis Qualifiers: Leukocytosis type: unspecified Qualified Code(s): D72.829 - Elevated white blood cell count, unspecified (5) Pulmonary embolism Qualifiers: Pulmonary embolism type: unspecified Chronicity: acute Acute cor pulmonale presence: without acute cor pulmonale Qualified Code(s): I26.99 - Other pulmonary embolism without acute cor pulmonale (6) DVT (deep venous thrombosis) Qualifiers: DVT location: lower extremity Affected thrombotic vein of extremity: unspecified vein of extremity Chronicity: acute Laterality: right Qualified Code(s): I82.401 - Acute embolism and thrombosis of unspecified deep veins of right lower extremity (10) HTN (hypertension) Qualifiers: Hypertension type: unspecified Qualified Code(s): I10 - Essential (primary) hypertension
[2018-11-10] MEDS: Metoclopramide 10 MG/2 ML VIAL IVP PRN (11:43)
--- NOTE | 2018-11-10 12:02 | Anesthesia Evaluation Post Op ---
Date of Encounter: 11/10/18 Time of Encounter: 12:00 - Vital Signs Vital Signs: Vital Signs/O2 Sat/Glucose, Most Current Temp Pulse Resp BP Pulse Ox 11/10/18 11:21 97.8 F 89 18 148/68 96 11/10/18 10:01 98.6 F 85 16 107/74 98 - Lungs Lungs: Clear Ascult./Percussion - Airway Airway: Non-obstructed - Cardiovascular Regular Rate - Mental Status Mental Status: Alert & Oriented, Answers Appropriately - Pain Pain Scale: 0 - Nausea Vomiting Nausea Vomiting: Not Present - Hydration Hydration: NPO - Discharge PostOp Status: Transfer Patient to floor
[2018-11-10] MEDS: *HR* Promethazine 25 MG/ML VIAL IVP PRN ×2 (13:55→18:05)
[2018-11-10 13:56] LABS: Hematocrit 23.3 % (35.3-44.9); Hemoglobin 7.9 g/dL (11.5-15.4)
[2018-11-10] MEDS ORDERED: Ipratropium/Albuterol Neb 3 ML IH PRN (17:57)
[2018-11-10] MEDS: clonazePAM 0.5 MG TABLET PO SCH (20:44)
[2018-11-10] MEDS: *HR* HYDROcodone/Acet 5/325 mg TABLET PO PRN (20:49)
[2018-11-11] MEDS: *HR* Promethazine 25 MG/ML VIAL IVP PRN (00:18)
[2018-11-11 06:32] LABS: Basophils # 0.1 K/mcL (0.0-0.2); Basophils % 0.3 %; Eosinophils # 0.2 K/mcL (0.0-0.6); Eosinophils % 1.4 %; Hematocrit 26.2 % (35.3-44.9); Hemoglobin 8.5 g/dL (11.5-15.4); Immature Granulocytes % 2.1 % (0-4); Lymphocytes # 2.1 K/mcL (0.6-4.6); Lymphocytes % 12.1 %; Mean Corpuscular HGB Conc 32.4 g/dL (31.6-35.5); Mean Corpuscular Volume 95.6 fL (83.0-100.0); Monocytes # 1.5 K/mcL (0.0-1.3); Monocytes % 8.6 %; Neutrophils # 13.1 K/mcL (1.6-8.9); Nucleated Red Blood Cells 0.2 /100 WBC (0); Platelet Count 274 K/mcL (140-400); Red Blood Count 2.74 M/mcL (3.82-4.97); Red Cell Distribution Width 16.4 % (11.5-14.5); Segmented Neutrophils % 75.5 %; White Blood Count 17.4 K/mcL (4.3-11.1)
[2018-11-11 06:50] LABS: BUN/Creatinine Ratio 15 (6-26); Blood Urea Nitrogen 9 mg/dL (8-23); Calcium 8.8 mg/dL (8.6-10.3); Carbon Dioxide 29 mEq/L (23-29); Chloride 98 mEq/L (98-107); Glucose 104 mg/dL (70-105); Osmolality,Calculated 277 (280-300); Potassium 3.6 mEq/L (3.5-5.1); Sodium 134 mEq/L (136-145); eGFR For African Americans > 60 (> 60); eGFR For Non-African Americans > 60 (> 60)
[2018-11-11] MEDS: Aspirin Enteric Coated 81 MG Tablet PO SCH (07:38)
[2018-11-11] MEDS: Multivit/Ca/Min/Fe/FA 1 TAB TABLET PO SCH (07:38)
[2018-11-11] MEDS: Lisinopril-HCTZ 20-12.5mg TABLET PO SCH (07:38)
[2018-11-11] MEDS: Cholecalciferol (D-3) 1,000 UNIT (25MCG) TABLET PO SCH (07:38)
[2018-11-11] MEDS: Famotidine 20 MG TABLET PO SCH ×2 (07:38→20:19)
[2018-11-11] MEDS: Pantoprazole 40 MG VIAL IVP SCH (07:38)
--- NOTE | 2018-11-11 10:56 | Internal Med Progress Note ---
Hospitalist Progress Note - Encounter Date of Encounter: 11/11/18 Time of Encounter: 10:53 - Subjective Interval History: She was seen and examined at bedside. Patient reports that about a evening yesterday she complained of difficulty in breathing. Patient was given 1 breathing treatment. Patient improved after that. Patient currently denies any difficulty breathing. Patient is saturating 92% on room air. Patient denied any fever and chills. From this, she denies any acute issues and concerns overnight. - Exam Vitals: Temp Pulse Resp BP Pulse Ox 98.8 F 73 15 124/7 94 11/11/18 06:54 11/11/18 06:54 11/11/18 06:54 11/11/18 06:54 11/11/18 06:54 Exam: General: A & O 3, In distress due to nausea HENNT: PERRLA. Head atraumatic and makes supple CVS S1 and S2 regular, no murmur RS: Clear to air entry bilaterally, no wheeze, no crackles Abdomen: Soft and nontender. Bowel sounds normal 4 Extremities: Trace pitting edema bilaterally Neurology: Cranial II-XII normal. Motor strength 5/5 bilaterally. Sensation intact - Assessment and Plan (1) Acute blood loss anemia Current Visit: Yes Status: Suspected Assessment and Plan: Patient has a drop in hemoglobin before yesterday. Acute blood loss workup was done. Patient found to double up with hematoma at the surgical site on the right hip which likely cause of her drop in hemoglobin. Patient is a upper endoscopy done yesterday which stooled gastritis and inflammation. EGD was negative for any active bleeding. Patient received back on Bicitra solution one time. Patient's hemoglobin today is 8.5. We will continue to monitor. PRBC transfusion as needed. Patient refuses colonoscopy at this time since she has gone through the right hip surgery and pain in the right leg. However apparent cause drop in hemoglobin has been identified. We will defer colonoscopy as an outpatient. FOBT still pending. (2) Hematoma Current Visit: Yes Status: Acute Assessment and Plan: Olivera has a hematoma around the surgical site of the right hip. Orthopedic surgery on consult and informed about the hematoma. Plan to do surgery coming Sunday. (3) Periprosthetic fracture around internal prosthetic hip joint Current Visit: Yes Status: Acute Assessment and Plan: Patient was complaining of right hip pain. CT scan and right hip x-ray was done yesterday. Imaging studies revealed periprosthetic fracture around right femur. Orthopedic consult. I spoke to Dr. Howe and plan to do surgery in 2-3 days. Patient denied any fall. (4) Leukocytosis Current Visit: Yes Status: Acute Assessment and Plan: WBC count is 17.4 today. Down trended from 20 to as needed before yesterday. Chest x-ray negative for any infection. UA was negative for any infection. Pro-calcitonin was negative. Most likely reactive will continue to monitor. (5) Pulmonary embolism Current Visit: Yes Status: Acute Assessment and Plan: Status post IVC filter placement on 11/09/2018. Postoperative day 2. Patient has tolerated procedure well. Patient denies any breathing difficulty at this time and is not requiring O2 support. Patient is currently not on anticoagulation. We will continue to monitor. (6) DVT (deep venous thrombosis) Current Visit: Yes Status: Acute Assessment and Plan: Management as above. (7) Nausea Current Visit: Yes Status: Acute Assessment and Plan: Patient is currently on Phenergan and Reglan. Placed on Protonix and Pepcid. Continue to monitor. (8) Hypothyroidism Current Visit: Yes Status: Acute Assessment and Plan: Continue home Synthroid. (9) Arthritis of right hip Current Visit: No Status: Chronic Assessment and Plan: Continue Ultram and [place] (10) HTN (hypertension) Current Visit: No Status: Chronic Assessment and Plan: Continue lisinopril/HCTZ. DVT Prophylaxis: antiembolic stocking. - Time Spent with Patient Total time spent is greater than 50% in coordination of care (as documented) at patient's floor/unit and/or counseling patient: 25 - 35 minutes Plan of Care Discussed with: patient Internal Medicine: Result - Labs CBC & Chem 7: 11/11/18 05:59 11/11/18 05:59 Labs: Short CBC 11/10/18 11/11/18 Range/Units 13:33 05:59 WBC 17.4 H (4.3-11.1) K/mcL Hgb 7.9 L 8.5 L (11.5-15.4) g/dL Hct 23.3 L 26.2 L (35.3-44.9) % Plt Count 274 (140-400) K/mcL Neutrophils # 13.1 H (1.6-8.9) K/mcL BMP 11/11/18 05:59 Sodium 134 L Potassium 3.6 Chloride 98 Carbon Dioxide 29 BUN 9 Creatinine 0.62 Glucose 104 Calcium 8.8 - ABG Interpretation ABG results: PT/INR, D-dimer PT 12.4 Seconds (9.4-12.1) H 11/07/18 21:07 Consult Discharge Plan - Plan Referrals: Catie Singh MD [Primary Care Provider] - 11/13/18 10:00 am (Please follow up as schedule...) (4) Leukocytosis Qualifiers: Leukocytosis type: unspecified Qualified Code(s): D72.829 - Elevated white blood cell count, unspecified (5) Pulmonary embolism Qualifiers: Pulmonary embolism type: unspecified Chronicity: acute Acute cor pulmonale presence: without acute cor pulmonale Qualified Code(s): I26.99 - Other pulmonary embolism without acute cor pulmonale (6) DVT (deep venous thrombosis) Qualifiers: DVT location: lower extremity Affected thrombotic vein of extremity: unspecified vein of extremity Chronicity: acute Laterality: right Qualified Code(s): I82.401 - Acute embolism and thrombosis of unspecified deep veins of right lower extremity (10) HTN (hypertension) Qualifiers: Hypertension type: unspecified Qualified Code(s): I10 - Essential (primary) hypertension
[2018-11-11] MEDS: *HR* HYDROcodone/Acet 5/325 mg TABLET PO PRN (20:19)
[2018-11-11] MEDS: clonazePAM 0.5 MG TABLET PO SCH (20:19)
[2018-11-11] MEDS: Melatonin 3 MG TABLET PO PRN (20:32)
[2018-11-11] MEDS ORDERED: Temazepam 15 MG CAPSULE PO STA (21:47)
--- NOTE | 2018-11-11 21:51 | Orthopedics Progress Note ---
Date of Encounter: 11/11/18 Time of Encounter: 21:48 Subjective Principal diagnosis: Status post right total hip arthroplasty, femoral component revision Interval history: The patient complains of sleeplessness and right groin pain. Afebrile vital signs are stable. Incision is clean dry and intact. She has groin pain with internal and external rotation of the right hip. Neurovascularly intact with regard to bilateral lower extremities. Assessment :stable status post right total hip arthroplasty with need for femoral component revision. Plan: Restoril, medical optimization per hospitalist service, plan revision surgery per Dr. Howe who will see in a.m. Objective Vital signs: Vital Signs Temp Pulse Resp BP Pulse Ox 11/11/18 18:50 98.9 F 86 16 173/93 96 11/11/18 15:35 99.3 F 77 16 166/81 93 11/11/18 12:32 98.6 F 81 17 156/75 98 11/11/18 06:54 98.8 F 73 15 124/7 94 11/11/18 03:57 98.6 F 80 18 174/64 95 11/10/18 23:46 99.2 F 77 18 176/72 96 Intake and Output 11/11/18 11/11/18 11/11/18 07:59 15:59 23:59 Intake Total 240 / 540 300 / 540 Output Total 400 / 1850 1000 / 1850 450 / 1850 Balance -400 / -1310 -760 / -1310 -150 / -1310 Intake: Oral 240 / 540 300 / 540 Output: Catheter 400 / 1850 1000 / 1850 450 / 1850 Other: Meal Breakfast Percent of Meal Consumed 100% - Labs CBC & BMP: 11/11/18 05:59 11/11/18 05:59 Labs: Abnormal lab results WBC 17.4 K/mcL (4.3-11.1) H 11/11/18 05:59 RBC 2.74 M/mcL (3.82-4.97) L 11/11/18 05:59 Hgb 8.5 g/dL (11.5-15.4) L 11/11/18 05:59 Hct 26.2 % (35.3-44.9) L 11/11/18 05:59 RDW 16.4 % (11.5-14.5) H 11/11/18 05:59 MPV 9.0 fL (9.4-12.4) L 11/11/18 05:59 Neutrophils # 13.1 K/mcL (1.6-8.9) H 11/11/18 05:59 Monocytes # 1.5 K/mcL (0.0-1.3) H 11/11/18 05:59 Nucleated RBCs/100 WBC 0.2 /100 WBC (0) H 11/11/18 05:59 PT 12.4 Seconds (9.4-12.1) H 11/07/18 21:07 Heparin Anti-Xa, Unfract 1.16 IU/mL (0.30-0.70) H* 11/08/18 03:28 Sodium 134 mEq/L (136-145) L 11/11/18 05:59 Potassium 3.4 mEq/L (3.5-5.1) L 11/10/18 06:41 Chloride 97 mEq/L (98-107) L 11/10/18 06:41 Creatinine 0.59 mg/dL (0.60-1.20) L 11/10/18 06:41 Glucose 111 mg/dL (70-105) H 11/10/18 06:41 Calculated Osmolality 277 (280-300) L 11/11/18 05:59 Calcium 8.5 mg/dL (8.6-10.3) L 11/10/18 06:41 Transferrin 202 mg/dL (203-362) L 11/09/18 15:09 Ferritin 233 ng/mL (10-120) H 11/09/18 15:09 Total Bilirubin 1.2 mg/dL (0.3-1.0) H 11/07/18 17:53 Ur Specific [place] > 1.030 (1.010-1.025) H 11/09/18 13:44 Urine Ketones Trace mg/dL (Negative) H 11/09/18 13:44 Crossmatch See Detail 11/09/18 15:09 Consult Discharge Plan - Plan Referrals: Catie Singh MD [Primary Care Provider] - 11/13/18 10:00 am (Please follow up as schedule...)
[2018-11-12 06:08] LABS: Basophils % 0.3 %; Eosinophils # 0.3 K/mcL (0.0-0.6); Eosinophils % 2.3 %; Hematocrit 24.3 % (35.3-44.9); Hemoglobin 7.9 g/dL (11.5-15.4); Immature Granulocytes % 1.8 % (0-4); Lymphocytes # 1.9 K/mcL (0.6-4.6); Lymphocytes % 13.8 %; Mean Corpuscular HGB Conc 32.5 g/dL (31.6-35.5); Mean Corpuscular Volume 98.4 fL (83.0-100.0); Monocytes # 1.2 K/mcL (0.0-1.3); Monocytes % 8.9 %; Nucleated Red Blood Cells 0.1 /100 WBC (0); Platelet Count 269 K/mcL (140-400); Red Blood Count 2.47 M/mcL (3.82-4.97); Red Cell Distribution Width 17.1 % (11.5-14.5); Segmented Neutrophils % 72.9 %; White Blood Count 13.7 K/mcL (4.3-11.1)
[2018-11-12 06:31] LABS: BUN/Creatinine Ratio 17 (6-26); Blood Urea Nitrogen 10 mg/dL (8-23); Calcium 8.6 mg/dL (8.6-10.3); Carbon Dioxide 29 mEq/L (23-29); Chloride 96 mEq/L (98-107); Glucose 105 mg/dL (70-105); Osmolality,Calculated 277 (280-300); Potassium 3.5 mEq/L (3.5-5.1); Sodium 134 mEq/L (136-145); eGFR For African Americans > 60 (> 60); eGFR For Non-African Americans > 60 (> 60)
--- NOTE | 2018-11-12 06:44 | Orthopedics Progress Note ---
Date of Encounter: 11/12/18 Time of Encounter: 06:43 Subjective Principal diagnosis: Status post right total hip arthroplasty, femoral component revision Interval history: Patient admitted last week with bilateral PE, x-rays on admission showed no abnormalities, CT and x-ray right hip 2 days later show periprosthetic right femur fracture. This is placed the femoral component in jeopardy patient is scheduled for revision of right femoral component tomorrow. We reviewed the risks and benefits as well as recovery. All questions were answered. The patient agreed to this treatment plan and acknowledged an understanding of the treatment plan as described. Objective Vital signs: Vital Signs Temp Pulse Resp BP Pulse Ox 11/12/18 03:16 98.7 F 78 16 144/85 97 11/11/18 23:15 98.8 F 77 17 154/78 96 11/11/18 18:50 98.9 F 86 16 173/93 96 11/11/18 15:35 99.3 F 77 16 166/81 93 11/11/18 12:32 98.6 F 81 17 156/75 98 11/11/18 06:54 98.8 F 73 15 124/7 94 Intake and Output 11/11/18 11/11/18 11/12/18 15:59 23:59 07:59 Intake Total 240 / 540 300 / 540 250 / 250 Output Total 1000 / 1850 450 / 1850 700 / 700 Balance -760 / -1310 -150 / -1310 -450 / -450 Intake: Oral 240 / 540 300 / 540 250 / 250 Output: Catheter 1000 / 1850 450 / 1850 700 / 700 Other: Meal Breakfast Percent of Meal Consumed 100% Weight 93.1 kg Patient Weight 11/12/18 23:59 Weight 93.1 kg - Labs CBC & BMP: 11/12/18 04:58 11/12/18 04:58 Labs: Abnormal lab results WBC 13.7 K/mcL (4.3-11.1) H 11/12/18 04:58 RBC 2.47 M/mcL (3.82-4.97) L 11/12/18 04:58 Hgb 7.9 g/dL (11.5-15.4) L 11/12/18 04:58 Hct 24.3 % (35.3-44.9) L 11/12/18 04:58 RDW 17.1 % (11.5-14.5) H 11/12/18 04:58 MPV 9.0 fL (9.4-12.4) L 11/12/18 04:58 Neutrophils # 10.0 K/mcL (1.6-8.9) H 11/12/18 04:58 Monocytes # 1.5 K/mcL (0.0-1.3) H 11/11/18 05:59 Nucleated RBCs/100 WBC 0.1 /100 WBC (0) H 11/12/18 04:58 PT 12.4 Seconds (9.4-12.1) H 11/07/18 21:07 Heparin Anti-Xa, Unfract 1.16 IU/mL (0.30-0.70) H* 11/08/18 03:28 Sodium 134 mEq/L (136-145) L 11/12/18 04:58 Potassium 3.4 mEq/L (3.5-5.1) L 11/10/18 06:41 Chloride 96 mEq/L (98-107) L 11/12/18 04:58 Creatinine 0.59 mg/dL (0.60-1.20) L 11/10/18 06:41 Glucose 111 mg/dL (70-105) H 11/10/18 06:41 Calculated Osmolality 277 (280-300) L 11/12/18 04:58 Calcium 8.5 mg/dL (8.6-10.3) L 11/10/18 06:41 Transferrin 202 mg/dL (203-362) L 11/09/18 15:09 Ferritin 233 ng/mL (10-120) H 11/09/18 15:09 Total Bilirubin 1.2 mg/dL (0.3-1.0) H 11/07/18 17:53 Ur Specific [place] > 1.030 (1.010-1.025) H 11/09/18 13:44 Urine Ketones Trace mg/dL (Negative) H 11/09/18 13:44 Crossmatch See Detail 11/09/18 15:09 Consult Discharge Plan - Plan Referrals: Catie Singh MD [Primary Care Provider] - 11/13/18 10:00 am (Please follow up as schedule...)
[2018-11-12] MEDS ORDERED: 0.9 % Sodium Chloride 250 ML IVC SCH (07:15)
[2018-11-12] MEDS: Famotidine 20 MG TABLET PO SCH ×2 (09:06→21:18)
[2018-11-12] MEDS: Pantoprazole 40 MG VIAL IVP SCH (09:07)
[2018-11-12] MEDS: Aspirin Enteric Coated 81 MG Tablet PO SCH (09:07)
[2018-11-12] MEDS: Multivit/Ca/Min/Fe/FA 1 TAB TABLET PO SCH (09:07)
[2018-11-12] MEDS: Lisinopril-HCTZ 20-12.5mg TABLET PO SCH (09:07)
[2018-11-12] MEDS: Cholecalciferol (D-3) 1,000 UNIT (25MCG) TABLET PO SCH (09:07)
--- NOTE | 2018-11-12 12:32 | Internal Med Progress Note ---
Hospitalist Progress Note - Encounter Date of Encounter: 11/12/18 Time of Encounter: 12:29 - Subjective Interval History: Patient was seen and examined at bedside today. Patient denies any acute issues and concerns or night. Patient reports of mild hip pain on the right side. Apart from this, she denies any acute issues and concerns. - Exam Vitals: Temp Pulse Resp BP Pulse Ox 99.0 F 80 15 114/73 94 11/12/18 12:16 11/12/18 12:16 11/12/18 12:16 11/12/18 12:16 11/12/18 11:30 Exam: General: A & O 3, In distress due to nausea HENNT: PERRLA. Head atraumatic and makes supple CVS S1 and S2 regular, no murmur RS: Clear to air entry bilaterally, no wheeze, no crackles Abdomen: Soft and nontender. Bowel sounds normal 4 Extremities: Trace pitting edema bilaterally. Limited range of motion on the right hip. Neurology: Cranial II-XII normal. Motor strength 5/5 bilaterally. Sensation intact - Assessment and Plan (1) Acute blood loss anemia Current Visit: Yes Status: Suspected Assessment and Plan: Likely due to hematoma at the surgical site on the right hip. Continue to monitor. Vision hemoglobin is 7.9 today. We will transfuse 1 unit today. Pt to undergo surgery tomorrow. (2) Hematoma Current Visit: Yes Status: Acute Assessment and Plan: Olivera has a hematoma around the surgical site of the right hip. Orthopedic surgery on consult and informed about the hematoma. She was scheduled for surgery for revision of femoral component of right hip. (3) Periprosthetic fracture around internal prosthetic hip joint Current Visit: Yes Status: Acute Assessment and Plan: Patient was complaining of right hip pain. CT scan and right hip x-ray was done yesterday. Imaging studies revealed periprosthetic fracture around right femur. Orthopedic consult. Pt will go for revision of femoral component of rt hip of initial right hip replacement. (4) Leukocytosis Current Visit: Yes Status: Acute Assessment and Plan: Downtrending will continue to monitor. Workup for infectious etiology has been negative so far. (5) Pulmonary embolism Current Visit: Yes Status: Acute Assessment and Plan: Status post IVC filter placement. We will continue to hold anti-coagulation. Restart anticoagulant after surgery when possible once source of active bleeding is corrected. (6) DVT (deep venous thrombosis) Current Visit: Yes Status: Acute Assessment and Plan: Management as above. (7) Nausea Current Visit: Yes Status: Acute Assessment and Plan: Patient is currently on Phenergan and Reglan. Placed on Protonix and Pepcid. Continue to monitor. (8) Hypothyroidism Current Visit: Yes Status: Acute Assessment and Plan: Continue home Synthroid. (9) Arthritis of right hip Current Visit: No Status: Chronic Assessment and Plan: Continue Ultram and [place] (10) HTN (hypertension) Current Visit: No Status: Chronic Assessment and Plan: Continue lisinopril/HCTZ. - Time Spent with Patient Total time spent is greater than 50% in coordination of care (as documented) at patient's floor/unit and/or counseling patient: 25 - 35 minutes Plan of Care Discussed with: patient Internal Medicine: Result - Labs CBC & Chem 7: 11/12/18 04:58 11/12/18 04:58 Labs: Short CBC 11/12/18 Range/Units 04:58 WBC 13.7 H (4.3-11.1) K/mcL Hgb 7.9 L (11.5-15.4) g/dL Hct 24.3 L (35.3-44.9) % Plt Count 269 (140-400) K/mcL Neutrophils # 10.0 H (1.6-8.9) K/mcL BMP 11/12/18 04:58 Sodium 134 L Potassium 3.5 Chloride 96 L Carbon Dioxide 29 BUN 10 Creatinine 0.60 Glucose 105 Calcium 8.6 - ABG Interpretation ABG results: PT/INR, D-dimer PT 12.4 Seconds (9.4-12.1) H 11/07/18 21:07 Consult Discharge Plan - Plan Referrals: Catie Singh MD [Primary Care Provider] - 11/13/18 10:00 am (Please follow up as schedule...) ___ (4) Leukocytosis Qualifiers: Leukocytosis type: unspecified Qualified Code(s): D72.829 - Elevated white blood cell count, unspecified (5) Pulmonary embolism Qualifiers: Pulmonary embolism type: unspecified Chronicity: acute Acute cor pulmonale presence: without acute cor pulmonale Qualified Code(s): I26.99 - Other pu lmonary embolism without acute cor pulmonale (6) DVT (deep venous thrombosis) Qualifiers: DVT location: lower extremity Affected thrombotic vein of extremity: unspecified vein of extremity Chronicity: acute Laterality: right Qualified Code(s): I82.401 - Acute embolism and thrombosis of unspecified deep veins of right lower extremity (10) HTN (hypertension) Qualifiers: Hypertension type: unspecified Qualified Code(s): I10 - Essential (primary) hypertension
[2018-11-12] MEDS ORDERED: Bisacodyl 10 MG RECTAL SUPPOSITORY RC PRN (15:39)
[2018-11-12] MEDS ORDERED: Furosemide 20 MG/2 ML VIAL IVP ONE (15:42)
[2018-11-12] MEDS: *HR* Promethazine 25 MG/ML VIAL IVP PRN (16:14)
[2018-11-12] MEDS: Metoclopramide 10 MG/2 ML VIAL IVP PRN (18:12)
--- NOTE | 2018-11-12 19:11 | Anesthesia Evaluation PreOp ---
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 History: Denies Any Significant HX Other Medical History: Thyroid Anesthesia History: No Prior Anesthetic Complications, Past Anesthesia Alcohol Use: none Drug use: none Medications and Allergies Calcium Carbonate [Calcium] 500 mg PO DAILY 10/28/18 [History] Cholecalciferol (Vitamin D3) [Vitamin D3] 1,000 unit PO DAILY 10/28/18 [History] Levothyroxine Sodium [Levo-T] 100 mcg PO QAM 10/28/18 [History] Lisinopril-HCTZ 20-12.5 [Prinzide 20-12.5] 1 tab PO DAILY 10/28/18 [History] Multivitamin [One Daily] 1 tab PO DAILY 10/28/18 [History] [place]-3/Dha/Epa/Fish Oil [Fish Oil 1,000 mg Softgel] 1 cap PO DAILY 10/28/18 [History] clonazePAM [Clonazepam] 0.5 mg PO HS 10/28/18 [History] OxyCODONE Immed Rel [Roxicodone 5 MG] 5 mg PO Q6HR PRN 5 Days #20 tablet 10/29/18 [Rx] Aspirin [Lo-Dose Aspirin EC] 81 mg PO DAILY 11/07/18 [History] Escitalopram [Lexapro] 10 mg PO DAILY 11/07/18 [History] Tizanidine HCl 4 mg PO TID PRN 11/08/18 [History] Allergy/AdvReac Type Severity Reaction Status Date / Time Sulfa (Sulfonamide Allergy Unknown Verified 10/28/18 18:31 Antibiotics) - Meds/Allergy Pre-op Review Medications Reviewed: Yes Allergies Reviewed: Yes Beta Blockers on Current Med List: No Anesthesia Results - Labs 11/13/18 04:52 11/13/18 04:52 - Imaging EKG: report reviewed (11/07/2018 Sinus rhythm Abnormal R-wave progression, early transition) Additional studies: 11/08/2018 Echo Impressions: LVEF 65%. Normal LV chamber size, wall thickness and function. Normal right ventricular structure and function. Mild tricuspid regurgitation. Mild pulmonary hypertension. Anesthesia Exam Vital Signs/O2 Sat, Most Current Temp Pulse Resp BP Pulse Ox 98.7 F 87 14 147/77 95 11/12/18 18:24 11/12/18 18:24 11/12/18 18:24 11/12/18 18:24 11/12/18 18:24 Height: 5'3''/1.6m Weight: 205 lbs/93.1 kg NPO (# of Hours): 8 Pain Scale: 6 Pain Scale Used: Numeric (1 - 10) - HEENT Pupil (Motor): EOMI Mallampati: III Teeth: Edentulous Oral Opening: Greater than 3 - MACHINE OPERATOR SLITTER TECHNICIAN LOC: Oriented MACHINE OPERATOR SLITTER TECHNICIAN Motor: Normal RUE, Normal LUE, Normal LLE, Normal Face, Deficit RLE MACHINE OPERATOR SLITTER TECHNICIAN Sensory: Normal: RUE, LUE, RLE, LLE, Face - Cardiac Rhythm: Regular Murmur: None - Pulmonary Breath Sounds: bilateral Clear Respiratory Effort: Symmetrical Anesthesia Assess/Plan ASA Score: 2 Level of consciousness: Cooperative, Oriented, Tranquil Anesthetic Plan: General Monitoring Plan: Standard Monitors Recovery Plan: PACU
[2018-11-12] MEDS: clonazePAM 0.5 MG TABLET PO SCH (21:18)
[2018-11-12 22:09] LABS: Basophils # 0.1 K/mcL (0.0-0.2); Basophils % 0.5 %; Eosinophils # 0.1 K/mcL (0.0-0.6); Eosinophils % 0.5 %; Hematocrit 32.4 % (35.3-44.9); Lymphocytes # 1.7 K/mcL (0.6-4.6); Lymphocytes % 9.5 %; Mean Corpuscular Hemoglobin 31.6 pg (28.0-33.3); Mean Corpuscular Volume 93.1 fL (83.0-100.0); Mean Platelet Volume 8.6 fL (9.4-12.4); Monocytes # 1.3 K/mcL (0.0-1.3); Monocytes % 7.3 %; Nucleated Red Blood Cells 0.1 /100 WBC (0); Platelet Count 271 K/mcL (140-400); Red Blood Count 3.48 M/mcL (3.82-4.97); Red Cell Distribution Width 17.6 % (11.5-14.5); Segmented Neutrophils % 79.2 %; White Blood Count 17.7 K/mcL (4.3-11.1)
[2018-11-12] MEDS: Melatonin 3 MG TABLET PO PRN (22:16)
[2018-11-13 06:08] LABS: Basophils # 0.1 K/mcL (0.0-0.2); Basophils % 0.4 %; Eosinophils # 0.2 K/mcL (0.0-0.6); Eosinophils % 1.4 %; Hematocrit 32.1 % (35.3-44.9); Hemoglobin 10.8 g/dL (11.5-15.4); Immature Granulocytes % 2.7 % (0-4); Lymphocytes % 12.1 %; Mean Corpuscular HGB Conc 33.6 g/dL (31.6-35.5); Mean Corpuscular Hemoglobin 31.5 pg (28.0-33.3); Mean Corpuscular Volume 93.6 fL (83.0-100.0); Mean Platelet Volume 9.1 fL (9.4-12.4); Monocytes # 1.5 K/mcL (0.0-1.3); Neutrophils # 12.4 K/mcL (1.6-8.9); Platelet Count 284 K/mcL (140-400); Red Blood Count 3.43 M/mcL (3.82-4.97); Red Cell Distribution Width 17.9 % (11.5-14.5); Segmented Neutrophils % 74.4 %; White Blood Count 16.7 K/mcL (4.3-11.1)
[2018-11-13 06:29] LABS: BUN/Creatinine Ratio 20 (6-26); Blood Urea Nitrogen 14 mg/dL (8-23); Calcium 8.8 mg/dL (8.6-10.3); Carbon Dioxide 28 mEq/L (23-29); Chloride 95 mEq/L (98-107); Glucose 103 mg/dL (70-105); Osmolality,Calculated 279 (280-300); Potassium 3.5 mEq/L (3.5-5.1); Sodium 134 mEq/L (136-145); eGFR For African Americans > 60 (> 60); eGFR For Non-African Americans > 60 (> 60)
--- NOTE | 2018-11-13 07:42 | Orthopedics Progress Note ---
Date of Encounter: 11/13/18 Time of Encounter: 07:41 Subjective Principal diagnosis: Status post right total hip arthroplasty, femoral component revision Interval history: Patient seen this morning, for revision of right femoral component, all questions answered. We reviewed the risks and benefits as well as recovery. All questions were answered. The patient agreed to this treatment plan and acknowledged an understanding of the treatment plan as described.. Objective Vital signs: Vital Signs Temp Pulse Resp BP Pulse Ox 11/13/18 06:56 99.6 F 80 16 137/82 93 11/13/18 03:27 98.3 F 70 15 160/90 96 11/12/18 22:11 98.3 F 83 16 164/85 95 11/12/18 21:05 99.1 F 85 16 164/90 11/12/18 18:24 98.7 F 87 14 147/77 95 11/12/18 18:09 98.6 F 88 17 146/91 96 11/12/18 15:29 99.1 F 85 16 153/86 97 11/12/18 15:03 98.4 F 86 16 144/79 11/12/18 12:31 97.6 F 85 16 117/67 95 11/12/18 12:16 99.0 F 80 15 114/73 11/12/18 11:30 98.3 F 81 16 100/61 94 Intake and Output 11/12/18 11/12/18 11/13/18 15:59 23:59 07:59 Intake Total 590 / 1190 350 / 1190 0 / 0 Output Total 1250 / 3600 1200 / 3600 Balance -660 / -2410 -850 / -2410 0 / 0 Intake: Oral 240 / 490 0 / 0 Blood Product 350 / 700 350 / 700 Rbcs Leuko Poor As-1 Unit 350 / 350 [id number] Rbcs Leuko Poor As-1 Unit 350 / 350 [id number] Output: Catheter 1250 / 3600 1200 / 3600 Other: Meal Breakfast Percent of Meal Consumed 90% Stool Size Large Stool Consistency formed Stool Color Brown # Bowel Movements 1 Weight 93 kg Patient Weight 11/13/18 23:59 Weight 93 kg - Labs CBC & BMP: 11/13/18 04:52 11/13/18 04:52 Labs: Abnormal lab results WBC 16.7 K/mcL (4.3-11.1) H 11/13/18 04:52 RBC 3.43 M/mcL (3.82-4.97) L 11/13/18 04:52 Hgb 10.8 g/dL (11.5-15.4) L 11/13/18 04:52 Hct 32.1 % (35.3-44.9) L 11/13/18 04:52 RDW 17.9 % (11.5-14.5) H 11/13/18 04:52 MPV 9.1 fL (9.4-12.4) L 11/13/18 04:52 Neutrophils # 12.4 K/mcL (1.6-8.9) H 11/13/18 04:52 Monocytes # 1.5 K/mcL (0.0-1.3) H 11/13/18 04:52 Nucleated RBCs/100 WBC 0.1 /100 WBC (0) H 11/12/18 21:57 PT 12.4 Seconds (9.4-12.1) H 11/07/18 21:07 Heparin Anti-Xa, Unfract 1.16 IU/mL (0.30-0.70) H* 11/08/18 03:28 Sodium 134 mEq/L (136-145) L 11/13/18 04:52 Potassium 3.4 mEq/L (3.5-5.1) L 11/10/18 06:41 Chloride 95 mEq/L (98-107) L 11/13/18 04:52 Creatinine 0.59 mg/dL (0.60-1.20) L 11/10/18 06:41 Glucose 111 mg/dL (70-105) H 11/10/18 06:41 Calculated Osmolality 279 (280-300) L 11/13/18 04:52 Calcium 8.5 mg/dL (8.6-10.3) L 11/10/18 06:41 Transferrin 202 mg/dL (203-362) L 11/09/18 15:09 Ferritin 233 ng/mL (10-120) H 11/09/18 15:09 Total Bilirubin 1.2 mg/dL (0.3-1.0) H 11/07/18 17:53 Ur Specific [place] > 1.030 (1.010-1.025) H 11/09/18 13:44 Urine Ketones Trace mg/dL (Negative) H 11/09/18 13:44 Stool Occult Blood Positive (Negative) A 11/12/18 17:15 Crossmatch See Detail 11/09/18 15:09 Consult Discharge Plan - Plan Referrals: Catie Singh MD [Primary Care Provider] - 11/13/18 10:00 am (Please follow up as schedule...)
[2018-11-13] MEDS: Multivit/Ca/Min/Fe/FA 1 TAB TABLET PO SCH (08:06)
[2018-11-13] MEDS: Lisinopril-HCTZ 20-12.5mg TABLET PO SCH (08:06)
[2018-11-13] MEDS: Cholecalciferol (D-3) 1,000 UNIT (25MCG) TABLET PO SCH (08:06)
[2018-11-13] MEDS: Famotidine 20 MG TABLET PO SCH ×2 (08:06→20:58)
[2018-11-13] MEDS: Pantoprazole 40 MG VIAL IVP SCH (08:06)
[2018-11-13] MEDS: Aspirin Enteric Coated 81 MG Tablet PO SCH (08:06)
[2018-11-13] MEDS ORDERED: Dexamethasone 4 MG/ML VIAL ONE ×2 (11:47→13:45)
[2018-11-13] MEDS ORDERED: Ondansetron 4 MG/2 ML VIAL ONE ×3 (11:47→15:51)
[2018-11-13] MEDS ORDERED: *HR* FentaNYL (PF) 100 MCG/2 ML VIAL ONE ×4 (11:48→16:51)
[2018-11-13] MEDS ORDERED: *HR* Propofol 200 MG/20 ML VIAL IVP ONE ×2 (11:48→15:51)
[2018-11-13] MEDS ORDERED: *HR* Midazolam HCl 2 MG/2 ML VIAL ONE (11:48)
[2018-11-13] MEDS ORDERED: Lidocaine -MPF 2% 2 ML VIAL ONE ×3 (11:48→15:51)
[2018-11-13] MEDS ORDERED: *HR* Succinylcholine 200 MG/10 ML VIAL IVP ONE (13:45)
[2018-11-13] MEDS ORDERED: Lidocaine HCL 4 ML Topical Solution (Laryng-O-Jet Kit Sterile Pak) TP ONE (13:48)
[2018-11-13] MEDS ORDERED: ceFAZolin 2,000 MG in Water for inj. (sterile) 20 ML IVP ONE (14:01)
--- NOTE | 2018-11-13 14:14 | Internal Med Progress Note ---
Hospitalist Progress Note - Encounter Date of Encounter: 11/13/18 Time of Encounter: 08:25 - Subjective Interval History: No acute events overnight. Patient admits some anxiety about going back into surgery today. She denies SOB, chest pain and palpitations. - Exam Vitals: Temp Pulse Resp BP Pulse Ox 37.1 C 74 16 125/67 96 11/13/18 11:45 11/13/18 14:06 11/13/18 14:06 11/13/18 14:06 11/13/18 14:06 Exam: General: A & O 3. Not in distress HEENT: PERRLA. Head atraumatic, no JVD, neck supple CVS S1 and S2 regular, no murmur RS: Clear to air entry bilaterally, no wheeze, no crackles Abdomen: Soft and nontender. Bowel sounds normal 4 Extremities: Trace pitting edema bilaterally. Limited range of motion on the right hip. Neurology: Cranial II-XII normal. Motor strength 5/5 bilaterally. Sensation intact - Assessment and Plan (1) Periprosthetic fracture around internal prosthetic hip joint Current Visit: Yes Status: Acute Assessment and Plan: Complains of mild hip pain CTscan revealed periprosthetic fracture around right femur. Schduled for surgical revision today Orthopaedics following. (2) Pulmonary embolism Current Visit: Yes Status: Acute Assessment and Plan: Status post IVC filter placement. We will continue to hold anti-coagulation. Restart anticoagulant after surgery when possible once source of active bleeding is corrected. (3) DVT (deep venous thrombosis) Current Visit: Yes Status: Acute Assessment and Plan: Management as above. (4) Arthritis of right hip Current Visit: No Status: Chronic Assessment and Plan: Continue Ultram and [facility] (5) HTN (hypertension) Current Visit: No Status: Chronic Assessment and Plan: Continue lisinopril/HCTZ. (6) Hypothyroidism Current Visit: Yes Status: Acute Assessment and Plan: Continue home Synthroid. (7) Acute blood loss anemia Current Visit: Yes Status: Suspected Assessment and Plan: Current hemoglobin 10.8g/dl Has received 3 units of PRBCs inthis admission. Will monitor H and H (8) Leukocytosis Current Visit: Yes Status: Acute Assessment and Plan: Downtrending will continue to monitor. Workup for infectious etiology has been negative so far. Likely reactive (9) Hematoma Current Visit: Yes Status: Acute Assessment and Plan: Pt has a hematoma around the surgical site of the right hip. She is scheduled for surgery for revision of femoral component of right hip. DVT Prophylaxis: PCDs - Time Spent with Patient Total time spent is greater than 50% in coordination of care (as documented) at patient's floor/unit and/or counseling patient: Internal Medicine: Result - Labs CBC & Chem 7: 11/13/18 04:52 11/13/18 04:52 Labs: Short CBC 11/12/18 11/13/18 Range/Units 21:57 04:52 WBC 17.7 H 16.7 H (4.3-11.1) K/mcL Hgb 11.0 L D 10.8 L (11.5-15.4) g/dL Hct 32.4 L 32.1 L (35.3-44.9) % Plt Count 271 284 (140-400) K/mcL Neutrophils # 14.0 H 12.4 H (1.6-8.9) K/mcL BMP 11/13/18 04:52 Sodium 134 L Potassium 3.5 Chloride 95 L Carbon Dioxide 28 BUN 14 Creatinine 0.70 Glucose 103 Calcium 8.8 - ABG Interpretation ABG results: PT/INR, D-dimer PT 12.4 Seconds (9.4-12.1) H 11/07/18 21:07 Consult Discharge Plan - Plan Referrals: Catie Singh MD [Primary Care Provider] - 11/13/18 10:00 am (Please follow up as schedule...) Prescriptions: Docusate [Colace] 100 mg PO BID 5 Days #10 capsule Ibuprofen [Motrin] 600 mg PO Q6HR PRN 7 Days #28 tab PRN Reason: Pain Acetaminophen [Pain Relief] 500 mg PO Q6H 7 Days #28 tablet OxyCODONE Immed Rel [Roxicodone 5 MG] 5 mg PO Q6HR PRN 5 Days #20 tablet PRN Reason: Severe Pain (2) Pulmonary embolism Qualifiers: Pulmonary embolism type: unspecified Chronicity: acute Acute cor pulmonale presence: without acute cor pulmonale Qualified Code(s): I26.99 - Other pulmonary embolism without acute cor pulmonale (3) DVT (deep venous thrombosis) Qualifiers: DVT location: lower extremity Affected thrombotic vein of extremity: unspecified vein of extremity Chronicity: acute Laterality: right Qualified C ode(s): I82.401 - Acute embolism and thrombosis of unspecified deep veins of right lower extremity (5) HTN (hypertension) Qualifiers: Hypertension type: unspecified Qualified Code(s): I10 - Essential (primary) hypertension (8) Leukocytosis Qualifiers: Leukocytosis type: unspecified Qualified Code(s): D72.829 - Elevated white blood cell count, unspecified
[2018-11-13] MEDS ORDERED: Famotidine 20 MG/2 ML VIAL ONE (15:11)
[2018-11-13] MEDS ORDERED: Acetaminophen IV 1,000 MG/100 ML INFUS..BTL ONE (15:11)
[2018-11-13] MEDS ORDERED: *HR* Rocuronium Bromide 50 MG/5 ML VIAL ONE (15:51)
[2018-11-13] MEDS ORDERED: Lidocaine -MPF 4% 5 ML AMPUL ONE (15:51)
[2018-11-13] MEDS ORDERED: Ethanol\\Acetic Acid\\Na Ace\\Ben 1,000 ML IRRIG.SOLN IR ONE (16:05)
[2018-11-13] MEDS ORDERED: Tranexamic Acid 1,000 MG/10 ML VIAL ONE (16:36)
[2018-11-13] MEDS ORDERED: EPHEDrine 50 MG/ML VIAL ONE (16:37)
[2018-11-13] MEDS ORDERED: *HR* HYDROMORPHONE 2 MG/ML VIAL ONE (17:40)
[2018-11-13] MEDS ORDERED: Sennosides 8.6 MG TABLET PO PRN (18:50)
[2018-11-13] MEDS ORDERED: Ipratropium/Albuterol Neb 3 ML IH PRN (18:50)
[2018-11-13] MEDS ORDERED: MOM Conc 10 ML UD.LIQ PO PRN (18:50)
[2018-11-13] MEDS ORDERED: Naloxone 0.4 MG/ML INJ IVP PRN (18:50)
[2018-11-13] MEDS ORDERED: 0.9 % Sodium Chloride 250 ML IVC SCH (18:50)
[2018-11-13] MEDS ORDERED: HYDROcodone BIT/Homatropine 5 MG TABLET PO PRN (18:50)
[2018-11-13] MEDS ORDERED: Ondansetron 4 MG/2 ML VIAL IVP PRN (18:50)
[2018-11-13] MEDS ORDERED: Bisacodyl 10 MG RECTAL SUPPOSITORY RC PRN (18:50)
[2018-11-13] MEDS ORDERED: Temazepam 15 MG CAPSULE PO PRN (18:50)
[2018-11-13] MEDS ORDERED: Metoclopramide 10 MG/2 ML VIAL IVP PRN (18:50)
[2018-11-13] MEDS ORDERED: Melatonin 3 MG TABLET PO PRN (18:50)
[2018-11-13] MEDS ORDERED: *HR* Promethazine 25 MG/ML VIAL IVP PRN (18:50)
[2018-11-13] MEDS ORDERED: Acetaminophen 325 MG TABLET PO PRN (18:50)
--- NOTE | 2018-11-13 19:22 | Orthopedic Operative Note ---
Date of procedure: 11/13/18 Pre-op diagnosis: Periprosthetic right femur fracture Post-op diagnosis: same Procedure: Procedure: Right Revision femoral component of Total Hip Replacment Estimated blood loss: 300 cc Hardware: Metal and polyethylene replacement. [place] 13 x 127 mm plasma coated stem, 25 mm +0 cone body, +4 head, Arthrex: 2 cerclage fiber tapes Procedural Notes: Periprosthetic right femur fracture Operative procedure: The patient was brought to the operating room and placed on the operating room table. After general anesthesia was administered the patient was placed in the lateral decubitus position with the operative leg up. All pressure points were padded appropriately and the head was stabilized in the neutral position. The operative extremity was prepped and draped in the sterile surgical fashion patient received IV antibiotic prior to skin incision. A standard posterior approach is made to the operative hip, through the old incision. The incision was made through the skin and subcutaneous tissue hemostasis was obtained with Bovie cautery. Using careful sharp dissection the fascia was identified and incised patient had significant hematoma below the fascia.. This was evacuated. Cultures were obtained at the level hip joint. Hip was brought into internal rotation and dislocated. The femoral component was removed without incident. Patient had a fracture just below the lesser trochanter.. The femur was reamed distally up to a size 13 x 127 mm, the stem was impacted in place. Trial reduction with a 25+0 cone body revealed the hip to be relocatable. The real 25 mm +0 cone body was impacted in place in 20 degrees of anteversion trial reduction revealed excellent stability with a +4 metal head with the appropriate poly. The trials were removed and the real implants were impacted in place. The hip was reduced, patient had apparent equal leg lengths. The hip had excellent stability with forward flexion to 90 degrees adduction of 30 degrees and internal rotation of 60 degrees. The hip had no shuck. The fracture was repaired with 2 Arthrex cerclage fiber tapes that were passed subperiosteally. The hips sat for 1 minute with an antibacterial solution. It was irrigated out with a different antibacterial solution with pulse irrigation. It was irrigated out with 2 L of pulse irrigation of normal saline. The hip was closed by the PA. Fascia was closed with a running #2 PDS suture over a CHAD drain. The deep tissue was irrigated and closed deep with #1 PDS suture superficially with 0 PDS suture and skin was closed with skin sabra. The patient was placed in a sterile dressing and abduction pillow. The patient was extubated and transferred to the recovery room in stable condition. Anesthesia: GETA Surgeon: Suleiman Howe Was there an assistant professor of english present: Yes History Card Clerk: Harjeet Yepez Estimated blood loss (cc): 300 Condition: stable Disposition: PACU
[2018-11-13] MEDS: *HR* OxyCODONE Immed Rel 5 MG TABLET PO PRN (19:24)
[2018-11-13 19:57] LABS: Hematocrit 33.1 % (35.3-44.9); Hemoglobin 10.9 g/dL (11.5-15.4)
[2018-11-13] MEDS: Ringers Solution, Lactated 1,000 ML IVC SCH (20:00)
[2018-11-13] MEDS: clonazePAM 0.5 MG TABLET PO SCH (20:58)
[2018-11-13] MEDS: Ascorbic Acid 500 MG TABLET PO SCH (21:00)
[2018-11-14] MEDS: *HR* OxyCODONE Immed Rel 5 MG TABLET PO PRN ×3 (01:47→12:40)
[2018-11-14 04:46] LABS: Basophils # 0.1 K/mcL (0.0-0.2); Basophils % 0.3 %; Eosinophils % 0.1 %; Hematocrit 31.4 % (35.3-44.9); Hemoglobin 10.3 g/dL (11.5-15.4); Lymphocytes # 0.9 K/mcL (0.6-4.6); Lymphocytes % 5.1 %; Mean Corpuscular HGB Conc 32.8 g/dL (31.6-35.5); Mean Corpuscular Hemoglobin 31.7 pg (28.0-33.3); Mean Corpuscular Volume 96.6 fL (83.0-100.0); Mean Platelet Volume 8.7 fL (9.4-12.4); Monocytes # 1.2 K/mcL (0.0-1.3); Monocytes % 6.5 %; Neutrophils # 15.3 K/mcL (1.6-8.9); Platelet Count 322 K/mcL (140-400); Red Blood Count 3.25 M/mcL (3.82-4.97); Red Cell Distribution Width 17.5 % (11.5-14.5)
[2018-11-14 05:18] LABS: BUN/Creatinine Ratio 21 (6-26); Blood Urea Nitrogen 17 mg/dL (8-23); Calcium 8.7 mg/dL (8.6-10.3); Carbon Dioxide 26 mEq/L (23-29); Chloride 94 mEq/L (98-107); Glucose 155 mg/dL (70-105); Osmolality,Calculated 285 (280-300); Potassium 4.4 mEq/L (3.5-5.1); Sodium 135 mEq/L (136-145); eGFR For African Americans > 60 (> 60); eGFR For Non-African Americans > 60 (> 60)
[2018-11-14] MEDS: Ringers Solution, Lactated 1,000 ML IVC SCH ×2 (05:25→22:43)
[2018-11-14] MEDS: Famotidine 20 MG TABLET PO SCH (08:57)
[2018-11-14] MEDS: Lisinopril-HCTZ 20-12.5mg TABLET PO SCH (08:57)
[2018-11-14] MEDS: Cholecalciferol (D-3) 1,000 UNIT (25MCG) TABLET PO SCH (08:57)
[2018-11-14] MEDS: Aspirin Enteric Coated 81 MG Tablet PO SCH (08:57)
[2018-11-14] MEDS: Ascorbic Acid 500 MG TABLET PO SCH ×2 (08:57→18:15)
[2018-11-14] MEDS: Multivit/Ca/Min/Fe/FA 1 TAB TABLET PO SCH (08:58)
[2018-11-14] MEDS: Pantoprazole 40 MG VIAL IVP SCH (08:58)
--- NOTE | 2018-11-14 13:28 | Orthopedics Progress Note ---
Date of Encounter: 11/14/18 Time of Encounter: 06:30 Subjective Principal diagnosis: Status post right total hip arthroplasty, femoral component revision Interval history: Patient was seen this morning doing well without complaints. Afebrile vital signs stable. Operative extremity: Neurovascularly intact Dressing clean dry and intact Calves nontender Assessment and plan: Continue with postoperative care . Objective Vital signs: Vital Signs Temp Pulse Resp BP Pulse Ox 11/14/18 09:35 97.9 F 87 16 119/72 97 11/14/18 08:50 97.7 F 77 16 105/62 96 11/14/18 06:50 98.0 F 84 15 111/69 97 11/14/18 03:20 97.9 F 77 16 116/73 97 11/13/18 22:26 98.3 F 88 17 114/73 97 11/13/18 21:51 98 18 125/64 96 11/13/18 21:06 90 16 97 11/13/18 20:07 84 16 137/71 94 11/13/18 19:37 81 18 129/79 97 11/13/18 19:06 82 18 130/79 96 11/13/18 18:51 98.5 F 83 16 125/81 99 11/13/18 18:28 90 16 116/67 99 11/13/18 18:18 98.4 F 84 16 124/74 96 11/13/18 18:08 81 18 130/77 96 11/13/18 17:58 99.2 F 81 16 136/74 97 11/13/18 14:06 74 16 125/67 96 Intake and Output 11/13/18 11/14/18 11/14/18 23:59 07:59 15:59 Intake Total 200 / 200 1100 / 1680 580 / 1680 Output Total 1280 / 2430 750 / 970 220 / 970 Balance -1080 / -2230 350 / 710 360 / 710 Intake: IV Fluids 1100 / 1200 100 / 1200 Lactated Ringers 1,000 ML @ 75 1000 / 1000 mls/hr IVC .[id number] CLAUDIO Rx#: [id number] Ancef 2,000 MG In 0.9 % Sodium 100 / 200 100 / 200 Chloride 100 ML @ 200 mls/hr IVPB Q8H CLAUDIO Rx#:[id number] Oral 200 / 200 480 / 480 Output: Urine 700 / 700 Estimated Blood Loss 300 / 300 Urine Amount (Catheter) 300 / 300 Catheter 550 / 1700 150 / 150 Wound Drainage 130 / 130 50 / 120 70 / 120 Right Hip 105 / 105 50 / 120 70 / 120 Other: Meal Breakfast Percent of Meal Consumed 95% - Labs CBC & BMP: 11/14/18 04:31 11/14/18 04:31 Labs: Abnormal lab results WBC 18.0 K/mcL (4.3-11.1) H 11/14/18 04:31 RBC 3.25 M/mcL (3.82-4.97) L 11/14/18 04:31 Hgb 10.3 g/dL (11.5-15.4) L 11/14/18 04:31 Hct 31.4 % (35.3-44.9) L 11/14/18 04:31 RDW 17.5 % (11.5-14.5) H 11/14/18 04:31 MPV 8.7 fL (9.4-12.4) L 11/14/18 04:31 Neutrophils # 15.3 K/mcL (1.6-8.9) H 11/14/18 04:31 Monocytes # 1.5 K/mcL (0.0-1.3) H 11/13/18 04:52 Nucleated RBCs/100 WBC 0.1 /100 WBC (0) H 11/12/18 21:57 PT 12.4 Seconds (9.4-12.1) H 11/07/18 21:07 Heparin Anti-Xa, Unfract 1.16 IU/mL (0.30-0.70) H* 11/08/18 03:28 Sodium 135 mEq/L (136-145) L 11/14/18 04:31 Potassium 3.4 mEq/L (3.5-5.1) L 11/10/18 06:41 Chloride 94 mEq/L (98-107) L 11/14/18 04:31 Creatinine 0.59 mg/dL (0.60-1.20) L 11/10/18 06:41 Glucose 155 mg/dL (70-105) H 11/14/18 04:31 POC Glucose 102 mg/dL (70-99) H 11/13/18 12:06 Calculated Osmolality 279 (280-300) L 11/13/18 04:52 Calcium 8.5 mg/dL (8.6-10.3) L 11/10/18 06:41 Transferrin 202 mg/dL (203-362) L 11/09/18 15:09 Ferritin 233 ng/mL (10-120) H 11/09/18 15:09 Total Bilirubin 1.2 mg/dL (0.3-1.0) H 11/07/18 17:53 Ur Specific [place] > 1.030 (1.010-1.025) H 11/09/18 13:44 Urine Ketones Trace mg/dL (Negative) H 11/09/18 13:44 Stool Occult Blood Positive (Negative) A 11/12/18 17:15 Crossmatch See Detail 11/09/18 15:09 Consult Discharge Plan - Plan Referrals: Catie Singh MD [Primary Care Provider] - 11/13/18 10:00 am (Please follow up as schedule...) Prescriptions: Docusate [Colace] 100 mg PO BID 5 Days #10 capsule Ibuprofen [Motrin] 600 mg PO Q6HR PRN 7 Days #28 tab PRN Reason: Pain Acetaminophen [Pain Relief] 500 mg PO Q6H 7 Days #28 tablet OxyCODONE Immed Rel [Roxicodone 5 MG] 5 mg PO Q6HR PRN 5 Days #20 tablet PRN Reason: Severe Pain
--- NOTE | 2018-11-14 13:42 | Internal Med Progress Note ---
Hospitalist Progress Note - Encounter Date of Encounter: 11/14/18 Time of Encounter: 08:25 - Subjective Interval History: Patient had uneventful revision of the right hip arthroplasty yesterday. She denies chest pain, shortness of breath, palpitations, and pain in lower extremities. - Exam Vitals: Temp Pulse Resp BP Pulse Ox 36.6 C 87 16 119/72 97 11/14/18 09:35 11/14/18 09:35 11/14/18 09:35 11/14/18 09:35 11/14/18 09:35 Exam: GENERAL: Not in distress. Alert and Oriented HEENT: EOMI, PERRLA MOUTH: Moist oral mucosa NECK:No JVD, No lymph nodes. CHEST AND LUNGS: Normal breath sounds, no wheezes or crackles HEART: S1 and S2 normal, no murmurs ABDOMEN: Soft, nontender, no organomegaly SKIN: Normal color, no rahses, no lesions EXTREMITIES: Clean surgical dressing over her right hip. No evidence of bleeding. CHAD drain in situ and draining dark blood. NEUROLOGICAL: Normal cognition, normal motor and sensory exam. - Assessment and Plan (1) Periprosthetic fracture around internal prosthetic hip joint Current Visit: Yes Status: Acute Assessment and Plan: Status post revision of femoral component right total hip arthroplasty Presurgical notes large hematoma was evacuated Patient denies chest pain, shortness of breath and palpitations Orthopedics following. (2) Pulmonary embolism Current Visit: Yes Status: Acute Assessment and Plan: Status post IVC filter placement. We will continue to hold anti-coagulation. We will discuss with orthopedic to decide appropriate time to resume anticoagulation (3) DVT (deep venous thrombosis) Current Visit: Yes Status: Acute Assessment and Plan: Management as above. (4) Arthritis of right hip Current Visit: No Status: Chronic Assessment and Plan: Continue Ultram and [place] (5) HTN (hypertension) Current Visit: No Status: Chronic Assessment and Plan: Continue lisinopril/HCTZ. (6) Hypothyroidism Current Visit: Yes Status: Acute Assessment and Plan: Continue home Synthroid. (7) Acute blood loss anemia Current Visit: Yes Status: Suspected Assessment and Plan: Current hemoglobin 10.3g/dl Has received 3 units of PRBCs inthis admission. Will monitor H and H (8) Leukocytosis Current Visit: Yes Status: Acute Assessment and Plan: White Cell count 18 Platelets also noted to be trending up This is likely a reaction to the surgery. We will continue to monitor (9) Hematoma Current Visit: Yes Status: Acute Assessment and Plan: Large right hip hematoma was evacuated during revision surgery yesterday. We will monitor. DVT Prophylaxis: PCDs - Time Spent with Patient Total time spent is greater than 50% in coordination of care (as documented) at patient's floor/unit and/or counseling patient: Internal Medicine: Result - Labs CBC & Chem 7: 11/14/18 04:31 11/14/18 04:31 Labs: Short CBC 11/13/18 11/14/18 Range/Units 19:40 04:31 WBC 18.0 H (4.3-11.1) K/mcL Hgb 10.9 L 10.3 L (11.5-15.4) g/dL Hct 33.1 L 31.4 L (35.3-44.9) % Plt Count 322 (140-400) K/mcL Neutrophils # 15.3 H (1.6-8.9) K/mcL BMP 11/14/18 04:31 Sodium 135 L Potassium 4.4 D Chloride 94 L Carbon Dioxide 26 BUN 17 Creatinine 0.80 Glucose 155 H Calcium 8.7 - ABG Interpretation ABG results: PT/INR, D-dimer PT 12.4 Seconds (9.4-12.1) H 11/07/18 21:07 - Impressions Impressions Hip X-Ray 11/13/18 01:00 IMPRESSION: Postsurgical changes of the right hip. D/ / Janet Brush Cha, MD / Janet Brush Cha, MD Interpreting Provider: Janet Brush Cha, MD - VTE Documentation of Mechanical Device: Venous foot pump, device Consult Discharge Plan - Plan Referrals: Catie Singh MD [Primary Care Provider] - 11/13/18 10:00 am (Please follow up as schedule...) Prescriptions: Docusate [Colace] 100 mg PO BID 5 Days #10 capsule Ibuprofen [Motrin] 600 mg PO Q6HR PRN 7 Days #28 tab PRN Reason: Pain Acetaminophen [Pain Relief] 500 mg PO Q6H 7 Days #28 tablet OxyCODONE Immed Rel [Roxicodone 5 MG] 5 mg PO Q6HR PRN 5 Days #20 tablet PRN Reason: Severe Pain (2) Pulmonary embolism Qualifiers: Pulmonary embolism type: unspecified Chronicity: acute Acute cor pulmonale presence: without acute cor pulmonale Qualified Code(s): I26.99 - Other pulmonary embolism without acute cor pulmonale (3) DVT (deep venous thrombosis) Qualifiers: DVT location: lower extremity Affected thrombotic vein of extremity: unspecified vein of extremity Chronicity: acute Laterality: right Qualified Code(s): I82.401 - Acute embolism and thrombosis of unspecified deep veins of right lower extremity (5) HTN (hypertension) Qualifiers: Hypertension type: unspecified Qualified Code(s): I10 - Essential (primary) hypertension (8) Leukocytosis Qualifiers: Leukocytosis type: unspecified Qualified Code(s): D72.829 - Elevated white bl ood cell count, unspecified
--- NOTE | 2018-11-14 14:19 | Event Note ---
Date of Encounter: 11/14/18 Time of Encounter: 12:15 PCR - POD#1. Right Revision femoral component of Total Hip Replacment Patient seen at bedside, without complaints other than leg hurts where touching chair. A&O x 3 Afebrile, vital signs stable. Dressings c/d/i, no calf tenderness to palpation, good dorsiflexion of foot, sensation intact distally. CHAD drain in place with roughly 50cc currently inside. 165cc so far documented as drainage today Labs reviewed. H/H - 10.3/31.4 stable, asymptomatic Pain control: inadequate, add lidoderm patch. discussed with patient that she is also past due for her pain medication as last dose documented around 6:30 this morning and now almost 6 hrs later. medication is allowed up to every 4 hrs as needed. She states she just made nurse aware she would like next dose. Participating in PT. WBAT All questions and concerns addressed. Educated on use of incentive spirometer. Encouraged ambulation and proper hydration. Patient educated on post-operative restrictions and post-operative care. Assessment and plan: Continue with postoperative care Discharge plan: once medically cleared and CHAD drain removed
[2018-11-14] MEDS: *HR* Rivaroxaban 10 MG TABLET PO SCH (14:52)
[2018-11-14] MEDS: clonazePAM 0.5 MG TABLET PO SCH (20:42)
[2018-11-15 05:17] LABS: Basophils # 0.1 K/mcL (0.0-0.2); Basophils % 0.4 %; Eosinophils # 0.4 K/mcL (0.0-0.6); Eosinophils % 3.2 %; Hemoglobin 8.9 g/dL (11.5-15.4); Immature Granulocytes % 4.1 % (0-4); Lymphocytes % 16.4 %; Mean Corpuscular HGB Conc 31.8 g/dL (31.6-35.5); Mean Corpuscular Hemoglobin 31.8 pg (28.0-33.3); Mean Platelet Volume 8.7 fL (9.4-12.4); Monocytes # 1.6 K/mcL (0.0-1.3); Monocytes % 13.1 %; Neutrophils # 7.6 K/mcL (1.6-8.9); Platelet Count 274 K/mcL (140-400); Red Cell Distribution Width 17.9 % (11.5-14.5); Segmented Neutrophils % 62.8 %
[2018-11-15 05:35] LABS: BUN/Creatinine Ratio 30 (6-26); Blood Urea Nitrogen 20 mg/dL (8-23); Calcium 7.7 mg/dL (8.6-10.3); Carbon Dioxide 25 mEq/L (23-29); Chloride 103 mEq/L (98-107); Glucose 104 mg/dL (70-105); Osmolality,Calculated 283 (280-300); Potassium 3.7 mEq/L (3.5-5.1); Sodium 135 mEq/L (136-145); eGFR For African Americans > 60 (> 60); eGFR For Non-African Americans > 60 (> 60)
[2018-11-15] MEDS: *HR* Rivaroxaban 10 MG TABLET PO SCH (05:57)
[2018-11-15] MEDS: Pantoprazole 40 MG VIAL IVP SCH (09:52)
[2018-11-15] MEDS: Aspirin Enteric Coated 81 MG Tablet PO SCH (09:53)
[2018-11-15] MEDS: Cholecalciferol (D-3) 1,000 UNIT (25MCG) TABLET PO SCH (09:53)
[2018-11-15] MEDS: Lisinopril-HCTZ 20-12.5mg TABLET PO SCH (09:53)
[2018-11-15] MEDS: Ascorbic Acid 500 MG TABLET PO SCH ×2 (09:54→17:43)
[2018-11-15] MEDS: Famotidine 20 MG TABLET PO SCH (09:54)
[2018-11-15] MEDS: Multivit/Ca/Min/Fe/FA 1 TAB TABLET PO SCH (09:54)
--- NOTE | 2018-11-15 14:08 | Internal Med Progress Note ---
Hospitalist Progress Note - Encounter Date of Encounter: 11/15/18 Time of Encounter: 07:55 - Subjective Interval History: No acute events overnight. Patient admits some soreness at surgical site,. She denies chest pain, SOB, palpitatios, fever and chills. - Exam Vitals: Temp Pulse Resp BP Pulse Ox 37.0 C 81 15 109/69 94 11/15/18 11:32 11/15/18 11:32 11/15/18 11:32 11/15/18 11:32 11/15/18 11:32 Exam: GENERAL: Not in distress. Alert and Oriented HEENT: EOMI, PERRLA MOUTH: Moist oral mucosa NECK:No JVD, No lymph nodes. CHEST AND LUNGS: Normal breath sounds, no wheezes or crackles HEART: S1 and S2 normal, no murmurs ABDOMEN: Soft, nontender, no organomegaly SKIN: Normal color, no rahses, no lesions EXTREMITIES: Clean surgical dressing over her right hip. No evidence of bleeding. CHAD drain has been removed. NEUROLOGICAL: Normal cognition, normal motor and sensory exam. - Assessment and Plan (1) Periprosthetic fracture around internal prosthetic hip joint Current Visit: Yes Status: Acute Assessment and Plan: Status post revision of femoral component right total hip arthroplasty 11/13/2018 Patient reports mild soreness at surgical site when she moves She is tolerating physical therapy well. CHDA drain has been removed. Due to drop in hemoglobin from 10.3 yesterday to 8.9. I will like to keep patient one more night to monitor the hemoglobin prior to transferring to rehabilitation facility. (2) Acute blood loss anemia Current Visit: Yes Status: Suspected Assessment and Plan: Current hemoglobin 8.9 g/dL consistent significant drop from 10.3 g/dL yesterday We will monitor H&H and transfer patient to rehabilitation facility if H&H remains stable (3) Pulmonary embolism Current Visit: Yes Status: Acute Assessment and Plan: Status post IVC filter placement. We will continue to hold anti-coagulation. We will discuss with orthopedic to decide appropriate time to resume anticoagulation (coumadin) (4) DVT (deep venous thrombosis) Current Visit: Yes Status: Acute Assessment and Plan: Management as above. (5) Arthritis of right hip Current Visit: No Status: Chronic Assessment and Plan: Continue Ultram and [place] (6) HTN (hypertension) Current Visit: No Status: Chronic Assessment and Plan: Continue lisinopril/HCTZ. (7) Hypothyroidism Current Visit: Yes Status: Acute Assessment and Plan: Continue home Synthroid. (8) Leukocytosis Current Visit: Yes Status: Acute Assessment and Plan: White Cell count is trending down. Now at 12<18 This is likely a reaction to the surgery. We will continue to monitor (9) Hematoma Current Visit: Yes Status: Acute - Time Spent with Patient Total time spent is greater than 50% in coordination of care (as documented) at patient's floor/unit and/or counseling patient: Internal Medicine: Result - Labs CBC & Chem 7: 11/15/18 04:42 11/15/18 04:42 Labs: Short CBC 11/15/18 Range/Units 04:42 WBC 12.0 H (4.3-11.1) K/mcL Hgb 8.9 L (11.5-15.4) g/dL Hct 28.0 L (35.3-44.9) % Plt Count 274 (140-400) K/mcL Neutrophils # 7.6 (1.6-8.9) K/mcL BMP 11/15/18 04:42 Sodium 135 L Potassium 3.7 Chloride 103 Carbon Dioxide 25 BUN 20 Creatinine 0.67 Glucose 104 Calcium 7.7 L - ABG Interpretation ABG results: PT/INR, D-dimer PT 12.4 Seconds (9.4-12.1) H 11/07/18 21:07 - VTE Documentation of Mechanical Device: Venous foot pump, device Consult Discharge Plan - Plan Referrals: Catie Singh MD [Primary Care Provider] - 11/13/18 10:00 am (Please follow up as schedule...) Prescriptions: Docusate [Colace] 100 mg PO BID 5 Days #10 capsule Ibuprofen [Motrin] 600 mg PO Q6HR PRN 7 Days #28 tab PRN Reason: Pain Acetaminophen [Pain Relief] 500 mg PO Q6H 7 Days #28 tablet OxyCODONE Immed Rel [Roxicodone 5 MG] 5 mg PO Q6HR PRN 5 Days #20 tablet PRN Reason: Severe Pain (3) Pulmonary embolism Qualifiers: Pulmonary embolism type: unspecified Chronicity: acute Acute cor pulmonale presence: without acute cor pulmonale Qualified Code(s): I26.99 - Other pulmonary embolism without acute cor pulmonale (4) DVT (deep venous thrombosis) Qualifiers: DVT location: lower extremity Affected thrombotic vein of extremity: unspecified vein of extremity Chronicity: acute Laterality: right Qualified Code(s): I82.401 - Acute embolism and thrombosis of unspecified deep veins of right lower extremity (6) HTN (hypertension) Qualifiers: Hypertension type: unspecified Qualified Code(s): I10 - Essential (primary) hypertension (8) Leukocytosis Qualifiers: Leukocytosis type: unspecified Qualified Code(s): D72.829 - Elevated white blood cell count, unspecified
--- NOTE | 2018-11-15 14:33 | Orthopedics Progress Note ---
Date of Encounter: 11/15/18 Time of Encounter: 12:30 - Assessment and Plan (1) Status post total hip replacement, right Current Visit: No Status: Acute (2) Periprosthetic fracture around internal prosthetic hip joint Current Visit: Yes Status: Acute Qualifiers: Encounter type: subsequent encounter Laterality: right Qualified Code(s): M97.01XD - Periprosthetic fracture around internal prosthetic right hip joint, subsequent encounter; T84.040D - Periprosthetic fracture around internal prosthetic right hip joint, subsequent encounter Subjective Principal diagnosis: Status post right total hip arthroplasty, femoral component revision Interval history: PCR - POD#2. Right Revision femoral component of Total Hip Replacment Patient seen at bedside, without complaints. A&O x 3 Afebrile, vital signs stable. Dressings c/d/i, no calf tenderness to palpation, good dorsiflexion of foot, sensation intact distally. CHAD drain removed today. Labs reviewed. H/H - 8.9/28.0 decrease from yesterday, asymptomatic - continue to monitor Pain control: adequate Participating in PT. WBAT All questions and concerns addressed. Educated on use of incentive spirometer. Encouraged ambulation and proper hydration. Patient educated on post-operative restrictions and post-operative care. Assessment and plan: Continue with postoperative care Discharge plan: once medically cleared Objective Vital signs: Vital Signs Temp Pulse Resp BP Pulse Ox 11/15/18 11:32 98.6 F 81 15 109/69 94 11/15/18 06:51 97.9 F 75 17 117/74 98 11/15/18 03:49 98.1 F 76 16 108/63 98 11/14/18 23:23 98.4 F 82 17 106/65 96 11/14/18 19:41 98.2 F 81 14 104/67 95 11/14/18 16:15 98.3 F 84 17 111/72 97 Intake and Output 11/14/18 11/15/18 11/15/18 23:59 07:59 15:59 Intake Total 1700 / 4180 150 / 630 480 / 630 Output Total 2014 900 / 925 Balance 1025 / 2165 125 / -295 -420 / -295 Intake: IV Fluids 1000 / 2200 Lactated Ringers 1,000 ML @ 75 1000 / 2000 mls/hr IVC .[id number] CLAUDIO Rx#: [id number] Oral 700 / 1980 150 / 630 480 / 630 Output: Urine 600 / 1300 0 / 900 900 / 900 Wound Drainage 75 / 240 25 / Right Hip 75 / 240 Other: Meal Lunch Percent of Meal Consumed 90% Weight 93.75 kg Patient Weight 11/15/18 23:59 Weight 93.75 kg - Labs CBC & BMP: 11/15/18 04:42 11/15/18 04:42 Labs: Abnormal lab results WBC 12.0 K/mcL (4.3-11.1) H 11/15/18 04:42 RBC 2.80 M/mcL (3.82-4.97) L 11/15/18 04:42 Hgb 8.9 g/dL (11.5-15.4) L 11/15/18 04:42 Hct 28.0 % (35.3-44.9) L 11/15/18 04:42 RDW 17.9 % (11.5-14.5) H 11/15/18 04:42 MPV 8.7 fL (9.4-12.4) L 11/15/18 04:42 Immature Gran % 4.1 % (0-4) H 11/15/18 04:42 Neutrophils # 15.3 K/mcL (1.6-8.9) H 11/14/18 04:31 Monocytes # 1.6 K/mcL (0.0-1.3) H 11/15/18 04:42 Nucleated RBCs/100 WBC 0.1 /100 WBC (0) H 11/12/18 21:57 PT 12.4 Seconds (9.4-12.1) H 11/07/18 21:07 Heparin Anti-Xa, Unfract 1.16 IU/mL (0.30-0.70) H* 11/08/18 03:28 Sodium 135 mEq/L (136-145) L 11/15/18 04:42 Potassium 3.4 mEq/L (3.5-5.1) L 11/10/18 06:41 Chloride 94 mEq/L (98-107) L 11/14/18 04:31 Creatinine 0.59 mg/dL (0.60-1.20) L 11/10/18 06:41 BUN/Creatinine Ratio 30 (6-26) H 11/15/18 04:42 Glucose 155 mg/dL (70-105) H 11/14/18 04:31 POC Glucose 102 mg/dL (70-99) H 11/13/18 12:06 Calculated Osmolality 279 (280-300) L 11/13/18 04:52 Calcium 7.7 mg/dL (8.6-10.3) L 11/15/18 04:42 Transferrin 202 mg/dL (203-362) L 11/09/18 15:09 Ferritin 233 ng/mL (10-120) H 11/09/18 15:09 Total Bilirubin 1.2 mg/dL (0.3-1.0) H 11/07/18 17:53 Ur Specific [place] > 1.030 (1.010-1.025) H 11/09/18 13:44 Urine Ketones Trace mg/dL (Negative) H 11/09/18 13:44 Stool Occult Blood Positive (Negative) A 11/12/18 17:15 Crossmatch See Detail 11/09/18 15:09 - VTE Documentation of Mechanical Device: Venous foot pump, device Consult Discharge Plan - Plan Referrals: Catie Singh MD [Primary Care Provider] - 11/13/18 10:00 am (Please follow up as schedule...) Prescriptions: Docusate [Colace] 100 mg PO BID 5 Days #10 capsule Ibuprofen [Motrin] 600 mg PO Q6HR PRN 7 Days #28 tab PRN Reason: Pain Acetaminophen [Pain Relief] 500 mg PO Q6H 7 Days #28 tablet OxyCODONE Immed Rel [Roxicodone 5 MG] 5 mg PO Q6HR PRN 5 Days #20 tablet PRN Reason: Severe Pain
[2018-11-15 15:41] LABS: Hematocrit 31.8 % (35.3-44.9); Hemoglobin 10.2 g/dL (11.5-15.4)
[2018-11-15] MEDS: *HR* OxyCODONE Immed Rel 5 MG TABLET PO PRN (20:08)
[2018-11-15] MEDS: clonazePAM 0.5 MG TABLET PO SCH (20:10)
[2018-11-16] MEDS: *HR* Rivaroxaban 10 MG TABLET PO SCH (06:05)
[2018-11-16 07:12] LABS: Basophils # 0.1 K/mcL (0.0-0.2); Basophils % 0.5 %; Eosinophils # 0.4 K/mcL (0.0-0.6); Eosinophils % 3.9 %; Hematocrit 28.9 % (35.3-44.9); Hemoglobin 9.1 g/dL (11.5-15.4); Immature Granulocytes % 4.1 % (0-4); Lymphocytes # 1.7 K/mcL (0.6-4.6); Lymphocytes % 15.6 %; Mean Corpuscular HGB Conc 31.5 g/dL (31.6-35.5); Mean Corpuscular Hemoglobin 32.3 pg (28.0-33.3); Mean Corpuscular Volume 102.5 fL (83.0-100.0); Mean Platelet Volume 8.8 fL (9.4-12.4); Monocytes # 1.5 K/mcL (0.0-1.3); Monocytes % 13.2 %; Platelet Count 299 K/mcL (140-400); Red Blood Count 2.82 M/mcL (3.82-4.97); Red Cell Distribution Width 17.7 % (11.5-14.5); Segmented Neutrophils % 62.7 %; White Blood Count 11.1 K/mcL (4.3-11.1)
[2018-11-16 07:32] LABS: BUN/Creatinine Ratio 30 (6-26); Blood Urea Nitrogen 17 mg/dL (8-23); Calcium 8.2 mg/dL (8.6-10.3); Carbon Dioxide 27 mEq/L (23-29); Chloride 103 mEq/L (98-107); Glucose 100 mg/dL (70-105); Osmolality,Calculated 280 (280-300); Sodium 134 mEq/L (136-145); eGFR For African Americans > 60 (> 60); eGFR For Non-African Americans > 60 (> 60)
[2018-11-16] MEDS: Famotidine 20 MG TABLET PO SCH (09:21)
[2018-11-16] MEDS: Aspirin Enteric Coated 81 MG Tablet PO SCH (09:22)
[2018-11-16] MEDS: Lisinopril-HCTZ 20-12.5mg TABLET PO SCH (09:22)
[2018-11-16] MEDS: Ascorbic Acid 500 MG TABLET PO SCH (09:22)
[2018-11-16] MEDS: Pantoprazole 40 MG VIAL IVP SCH (09:23)
[2018-11-16] MEDS: Multivit/Ca/Min/Fe/FA 1 TAB TABLET PO SCH (09:23)
[2018-11-16] MEDS: Cholecalciferol (D-3) 1,000 UNIT (25MCG) TABLET PO SCH (09:23)
--- NOTE | 2018-11-16 11:27 | Discharge Summary ---
Orders not resulted at time of discharge: Pending orders 11/13/18 16:45 Culture,Anaerobic [RM] Routine Culture,Tissue(Biopsy),w Gr St [RM] Routine Date of Encounter: 11/16/18 Time of Encounter: 08:50 - Discharge Diagnosis (1) Pulmonary embolism Priority: Primary Status: Acute Qualifiers: Pulmonary embolism type: unspecified Chronicity: acute Acute cor pulmonale presence: without acute cor pulmonale Qualified Code(s): I26.99 - Other pulmonary embolism without acute cor pulmonale (2) Periprosthetic fracture around internal prosthetic hip joint Priority: Secondary Status: Acute Qualifiers: Encounter type: subsequent encounter Laterality: right Qualified Code(s): M97.01XD - Periprosthetic fracture around internal prosthetic right hip joint, subsequent encounter; T84.040D - Periprosthetic fracture around internal prosthetic right hip joint, subsequent encounter (3) Acute blood loss anemia Priority: Secondary Status: Suspected (4) DVT (deep venous thrombosis) Priority: Secondary Status: Acute Qualifiers: DVT location: lower extremity Affected thrombotic vein of extremity: other lower extremity vein Chronicity: acute Laterality: right Qualified Code(s): I82.491 - Acute embolism and thrombosis of other specified deep vein of right lower extremity (5) Arthritis of right hip Priority: Secondary Status: Chronic (6) HTN (hypertension) Priority: Secondary Status: Chronic Qualifiers: Hypertension type: unspecified Qualified Code(s): I10 - Essential (primary) hypertension (7) Hypothyroidism Priority: Secondary Status: Acute Qualifiers: Hypothyroidism type: unspecified Qualified Code(s): E03.9 - Hypothyroidism, unspecified (8) Leukocytosis Priority: Secondary Status: Acute Qualifiers: Leukocytosis type: unspecified Qualified Code(s): D72.829 - Elevated white blood cell count, unspecified (9) Hematoma Priority: Secondary Status: Acute Hospital course: Ms. Gan is a 73 year old female with a past medical history hypothyroidism, vertigo, lumbar stenosis and osteoarthritis. Patient presented to our facility 5 days after right hip replacement surgery with sudden onset right hip pain and swelling after she had returned home from an outpatient visit with her orthopedic surgeon. Her initial hip replacement surgery was on 10/28/2018. Inpatient evaluation revealed an acute DVT in the right peroneal vein as well as acute bilateral pulmonary emboli. Patient also had a hematoma at the hip replacement site. She had IVC filter placement and underwent revision of the femoral component right total hip arthroplasty on 11/13/2018. She received 3 units of packed red blood cells and her hemoglobin has remained stable with no evidence of further bleeding after revision surgery. She will be discharged to continue rehabilitation in a facility and will be treated with Xarelto for the acute PE and DVT. Discharge discussed with: patient, nurse, social work, case management - Time Spent with Patient Total time spent providing and/or coordinating discharge services: Time spent: Greater than 30 minutes (60 minutes) - Discharge Medications Prescriptions: New Docusate [Colace] 100 mg PO BID 5 Days #10 capsule Ibuprofen [Motrin] 600 mg PO Q6HR PRN 7 Days #28 tab PRN Reason: Pain Acetaminophen [Pain Relief] 500 mg PO Q6H 7 Days #28 tablet OxyCODONE Immed Rel [Roxicodone 5 MG] 5 mg PO Q6HR PRN 5 Days #20 tablet PRN Reason: Severe Pain Ferrous Sulfate 325 mg PO BIDWM #60 tablet Rivaroxaban [Xarelto] 15 mg PO BID 21 Days tablet Rivaroxaban [Xarelto] 20 mg PO DAILY #30 tablet Continued [place]-3/Dha/Epa/Fish Oil [Fish Oil 1,000 mg Softgel] 1 cap PO DAILY Multivitamin [One Daily] 1 tab PO DAILY Lisinopril-HCTZ 20-12.5 [Prinzide 20-12.5] 1 tab PO DAILY Levothyroxine Sodium [Levo-T] 100 mcg PO QAM clonazePAM [Clonazepam] 0.5 mg PO HS Cholecalciferol (Vitamin D3) [Vitamin D3] 1,000 unit PO DAILY Calcium Carbonate [Calcium] 500 mg PO DAILY Escitalopram [Lexapro] 10 mg PO DAILY Aspirin [Lo-Dose Aspirin EC] 81 mg PO DAILY Tizanidine HCl 4 mg PO TID PRN PRN Reason: Muscle Spasm Discontinued OxyCODONE Immed Rel [Roxicodone 5 MG] 5 mg PO Q6HR PRN 5 Days #20 tablet PRN Reason: Severe Pain Home Medications: Calcium Carbonate [Calcium] 500 mg PO DAILY 10/28/18 [History] Cholecalciferol (Vitamin D3) [Vitamin D3] 1,000 unit PO DAILY 10/28/18 [History] Levothyroxine Sodium [Levo-T] 100 mcg PO QAM 10/28/18 [History] Lisinopril-HCTZ 20-12.5 [Prinzide 20-12.5] 1 tab PO DAILY 10/28/18 [History] Multivitamin [One Daily] 1 tab PO DAILY 10/28/18 [History] [place]-3/Dha/Epa/Fish Oil [Fish Oil 1,000 mg Softgel] 1 cap PO DAILY 10/28/18 [History] clonazePAM [Clonazepam] 0.5 mg PO HS 10/28/18 [History] Aspirin [Lo-Dose Aspirin EC] 81 mg PO DAILY 11/07/18 [History] Escitalopram [Lexapro] 10 mg PO DAILY 11/07/18 [History] Tizanidine HCl 4 mg PO TID PRN 11/08/18 [History] Acetaminophen [Pain Relief] 500 mg PO Q6H 7 Days #28 tablet 11/13/18 [Rx] Docusate [Colace] 100 mg PO BID 5 Days #10 capsule 11/13/18 [Rx] Ibuprofen [Motrin] 600 mg PO Q6HR PRN 7 Days #28 tab 11/13/18 [Rx] OxyCODONE Immed Rel [Roxicodone 5 MG] 5 mg PO Q6HR PRN 5 Days #20 tablet 11/13/18 [Rx] Ferrous Sulfate 325 mg PO BIDWM #60 tablet 11/16/18 [Rx] Rivaroxaban [Xarelto] 15 mg PO BID 21 Days tablet 11/16/18 [Rx] Rivaroxaban [Xarelto] 20 mg PO DAILY #30 tablet 11/16/18 [Rx] Allergies/Adverse Reactions: Allergy/AdvReac Type Severity Reaction Status Date / Time Sulfa (Sulfonamide Allergy Unknown Verified 10/28/18 18:31 Antibiotics) Date of admission: 11/09/18 11:45 Primary care physician: Catie Singh Consults: 11/08/18 12:37 Consult to Occupational Therapy [CONS] Routine Comment: Evaluate, develop and implement POC Reason for Consult: R hip sx Does patient have active BEDREST order?: No Is patient medically & hemodynamically stable?: Yes Patient assessed for mobility or mobilized this visit?: Yes Consult to Physical Therapy [CONS] Routine Comment: Evaluate, develop and implement POC Reason for Consult: R hip sx Does patient have active BEDREST order?: No Is patient medically & hemodynamically stable?: Yes Patient assessed for mobility or mobilized this visit?: Yes 11/09/18 10:55 Consult to Pulmonology [CONS] Stat Consulting Provider: [facility] Reason for Consult: Pulmonary embolism Call Completed: Yes 11/09/18 11:52 Consult to Gastroenterology [CONS] Stat Consulting Provider: Gastroenterology Grace Reason for Consult: Acute supspected GI bleed Call Completed: Yes 11/13/18 18:50 Consult to Nurse Navigator [CONS] Routine Comment: ortho navigator Consult to Nutrition [CONS] Routine Comment: Consulting Provider: NUTRITION Reason for Dietary Consult: Other Other:: Proper nutrition to facilitate wound healing Consult to Occupational Therapy [CONS] Routine Comment: Evaluate, develop and implement POC Reason for Consult: total hip replacement Does patient have active BEDREST order?: No Is patient medically & hemodynamically stable?: Yes Consult to Physical Therapy [CONS] Routine Comment: Evaluate, develop and implement POC Reason for Consult: total hip replacement Does patient have active BEDREST order?: No Is patient medically & hemodynamically stable?: Yes Consult to [place] [CONS] Routine Reason for SW Consult: post op joint replacement RT Post Op Consult [CONS] Routine - Constitutional Vitals: Temp Pulse Resp BP Pulse Ox 37.2 C 80 18 116/73 98 11/16/18 07:16 11/16/18 07:16 11/16/18 07:16 11/16/18 07:16 11/16/18 07:16 General appearance: Present: A&O X 3 Exam: GENERAL: Not in distress. Alert and Oriented HEENT: EOMI, PERRLA MOUTH: Moist oral mucosa NECK:No JVD, No lymph nodes. CHEST AND LUNGS: Normal breath sounds, no wheezes or crackles HEART: S1 and S2 normal, no murmurs ABDOMEN: Soft, nontender, no organomegaly SKIN: Normal color, no rahses, no lesions EXTREMITIES: Clean surgical dressing over her right hip. No evidence of bleeding. CHAD drain has been removed. NEUROLOGICAL: Normal cognition, normal motor and sensory exam. - Patient Status Disposition: Transfer SNF Condition: Fair Functional capacity at discharge: uses cane/walker Overall status at discharge: patient is progressing back to baseline - Discharge Instructions Follow Up With: Catie Singh MD [Primary Care Provider] - 11/13/18 10:00 am (Please follow up as schedule...) - Diet and Activity Activity: as per physical therapy Diet: advance to your usual diet - VTE Documentation of Mechanical Device: Venous foot pump, device
[2018-11-16 11:46] VITALS: BP 118/72
--- NOTE | 2018-11-16 11:52 | Physician Discharge Referral ---
ExtendedCare Referral Info Transfer To: SNF Provider in Charge after Transfer: PCP Institutional Level of Care: Skilled - Diagnosis (1) Pulmonary embolism Priority: Primary Status: Acute (2) Periprosthetic fracture around internal prosthetic hip joint Priority: Secondary Status: Acute (3) Acute blood loss anemia Priority: Secondary Status: Suspected (4) DVT (deep venous thrombosis) Priority: Secondary Status: Acute (5) Arthritis of right hip Priority: Secondary Status: Chronic (6) HTN (hypertension) Priority: Secondary Status: Chronic (7) Hypothyroidism Priority: Secondary Status: Acute (8) Leukocytosis Priority: Secondary Status: Acute (9) Hematoma Priority: Secondary Status: Acute - Transfer Medications Prescriptions: Docusate [Colace] 100 mg PO BID 5 Days #10 capsule Ferrous Sulfate 325 mg PO BIDWM #60 tablet Ibuprofen [Motrin] 600 mg PO Q6HR PRN 7 Days #28 tab PRN Reason: Pain Acetaminophen [Pain Relief] 500 mg PO Q6H 7 Days #28 tablet OxyCODONE Immed Rel [Roxicodone 5 MG] 5 mg PO Q6HR PRN 5 Days #20 tablet PRN Reason: Severe Pain Rivaroxaban [Xarelto] 15 mg PO BID 21 Days tablet Rivaroxaban [Xarelto] 20 mg PO DAILY #30 tablet Home Medications: Calcium Carbonate [Calcium] 500 mg PO DAILY 10/28/18 [History] Cholecalciferol (Vitamin D3) [Vitamin D3] 1,000 unit PO DAILY 10/28/18 [History] Levothyroxine Sodium [Levo-T] 100 mcg PO QAM 10/28/18 [History] Lisinopril-HCTZ 20-12.5 [Prinzide 20-12.5] 1 tab PO DAILY 10/28/18 [History] Multivitamin [One Daily] 1 tab PO DAILY 10/28/18 [History] [place]-3/Dha/Epa/Fish Oil [Fish Oil 1,000 mg Softgel] 1 cap PO DAILY 10/28/18 [History] clonazePAM [Clonazepam] 0.5 mg PO HS 10/28/18 [History] Aspirin [Lo-Dose Aspirin EC] 81 mg PO DAILY 11/07/18 [History] Escitalopram [Lexapro] 10 mg PO DAILY 11/07/18 [History] Tizanidine HCl 4 mg PO TID PRN 11/08/18 [History] Acetaminophen [Pain Relief] 500 mg PO Q6H 7 Days #28 tablet 11/13/18 [Rx] Docusate [Colace] 100 mg PO BID 5 Days #10 capsule 11/13/18 [Rx] Ibuprofen [Motrin] 600 mg PO Q6HR PRN 7 Days #28 tab 11/13/18 [Rx] OxyCODONE Immed Rel [Roxicodone 5 MG] 5 mg PO Q6HR PRN 5 Days #20 tablet 11/13/18 [Rx] Ferrous Sulfate 325 mg PO BIDWM #60 tablet 11/16/18 [Rx] Rivaroxaban [Xarelto] 15 mg PO BID 21 Days tablet 11/16/18 [Rx] Rivaroxaban [Xarelto] 20 mg PO DAILY #30 tablet 11/16/18 [Rx] Allergies/Adverse Reactions: Allergy/AdvReac Type Severity Reaction Status Date / Time Sulfa (Sulfonamide Allergy Unknown Verified 10/28/18 18:31 Antibiotics) - Respiratory Orders Smoking Cessation: Smoking cessation has been advised. For more information, call the [place] Tobacco Quit Line at 5-266-NWGH-NOW. CERTIFICATION: I certify that the transfer of the above named patient to an Extended Care Facility is necessary for the continuing treatment of the diagnosis listed. The above information is true and accurate reflection of patient's current condition. Confidential - Redisclosure prohibited without a patient's written consent.
[2018-11-16] MEDS: *HR* OxyCODONE Immed Rel 5 MG TABLET PO PRN (14:45)
== END 2018-11-16 15:06 ==
LOC: 2ANU 17:36 → EMEROOARM 17:36 → SUATTDRO 20:54 → 2ANU 21:55 → SUATTDRO 11-09 11:45 → 3NENU 11-11 16:04
PROVIDERS: ADMIT Internal Medicine; ATTEND Internal Medicine